=== PATIENT | female | born 1960 | race Caucasian/White ===

== ENCOUNTER 2017-06-30 11:46 | Outpatient (CLI) | payer MEDICARE, MEDICAID ==
[~2017-06-30 11:46] MED LIST: DOCU-25 PO; ESOM20CA32 PO; FLUT1DIS IH; HYDR10TA GT; HYDR20TA PO; LAMO150T2 PO; ONDA4TAB5 PO; OXYC-34 PO; TOLT1TAB2 PO
== END 2017-06-30 23:59 | disposition home or self-care (01) ==
LOC: RAD 11:46
DX: Z01.818 Encounter for other preprocedural examination (principal); J98.11 Atelectasis; I70.0 Atherosclerosis of aorta; Z95.0 Presence of cardiac pacemaker
CPT/HCPCS: 71010-TC

== ENCOUNTER 2017-07-03 05:02 | Day surgery (SDC) | payer MEDICARE, MEDICAID ==
[2017-07-03] MEDS ORDERED: CEFAZOLIN SODIUM/DEXTROSE,ISO 50 ML IV ONE (05:39)
[2017-07-03] MEDS ORDERED: LIDOCAINE 1% INJ 50 ML MDV IJ ONE (06:07)
[2017-07-03] MEDS ORDERED: EPINEPHRINE (1:1000) MDV 30 MG/30ML VIAL ONE (06:07)
[2017-07-03] MEDS ORDERED: MIDAZOLAM HCL 2 MG/2ML VIAL ONE (06:27)
[2017-07-03] MEDS ORDERED: FENTANYL PF 100MCG/2ML AMPUL ONE (06:27)
[2017-07-03] MEDS ORDERED: ROCURONIUM BROMIDE 50 MG/5 ML ONE (06:27)
[2017-07-03] MEDS ORDERED: HYDROMORPHONE 1 MG/1 ML DISP.SYRIN ONE (07:50)
== END 2017-07-03 09:00 | disposition home or self-care (01) ==
LOC: DS 05:02
PROVIDERS: ATTEND Specialist
DX: S43.082A Other subluxation of left shoulder joint, initial encounter (principal); M65.812 Other synovitis and tenosynovitis, left shoulder; M75.52 Bursitis of left shoulder; M75.42 Impingement syndrome of left shoulder; M75.02 Adhesive capsulitis of left shoulder; X58.XXXA Exposure to other specified factors, initial encounter; Y93.9 Activity, unspecified; Y92.89 Other specified places as the place of occurrence of the external cause; Y99.9 Unspecified external cause status; J45.909 Unspecified asthma, uncomplicated; F31.89 Other bipolar disorder; E27.1 Primary adrenocortical insufficiency; Z95.0 Presence of cardiac pacemaker; Z90.49 Acquired absence of other specified parts of digestive tract; Z88.5 Allergy status to narcotic agent; Z88.8 Allergy status to other drugs, medicaments and biological substances
CPT/HCPCS: 29820; 29824; 29825; 29826; 88304; 88305; 88311; A4217; A4565; J0171; J0690; J1100; J1170; J2250; J2405; J2704; J2710; J3010; J3490 ×3; Z7610

== ENCOUNTER 2017-09-28 19:19 | Inpatient (IN) | payer MEDICARE, MEDICAID ==
[2017-09-27 22:12] VITALS: BP 110/75
[2017-09-28] VITALS: BP 101/65
[~2017-09-28] VITALS: Ht 160 cm; Wt 45.4 kg
[2017-09-28] MEDS ORDERED: ONDANSETRON HCL/PF 4 MG/2 ML VIAL ONE (19:47)
[2017-09-28] MEDS ORDERED: IV NS 0.9% 1,000 ML BAG IV ONE (20:00)
[2017-09-28] MEDS ORDERED: ONDANSETRON HCL/PF 4 MG/2 ML VIAL IVP ONE (20:00)
[2017-09-28 20:19] LABS: BASOPHILS % (AUTO) 0.3 % (0.0-2.0); EOSINOPHILS # (AUTO) 0.2 /CMM (0.0-0.7); EOSINOPHILS % (AUTO) 3.3 % (0.0-6.0); HEMATOCRIT 37 % (33-45); HEMOGLOBIN 12.4 g/dL (11.5-14.8); LYMPHOCYTES % (AUTO) 19.5 % (20.0-44.0); MEAN CORPUSCULAR HEMOGLOBIN 31 PG (26.0-33.0); MEAN CORPUSCULAR HGB CONC 34 g/dl (31.0-36.0); MEAN CORPUSCULAR VOLUME 93 fL (82-100); MONOCYTES # (AUTO) 0.5 /CMM (0.1-1.30); NEUTROPHILS # (AUTO) 3.5 /CMM (1.8-8.9); NEUTROPHILS % (AUTO) 67.9 % (43.0-81.0); PLATELET COUNT (AUTO) 228 /CMM (150-450); RDW COEFFICIENT OF VARIATION 12.5 (11.5-15.0); RED BLOOD CELL COUNT(AUTO) 3.99 MIL/uL (4.0-5.2); WHITE BLOOD COUNT (AUTO) 5.2 K/uL (4.3-11.0)
[2017-09-28] MEDS ORDERED: oxyCODONE/APAP (5/325 MG) 1 UDTAB TABLET ONE ×2 (20:19→22:44)
[2017-09-28 20:28] LABS: CALCIUM, SERUM 8.1 mg/dL (8.5-10.1); CREATININE 0.5 mg/dL (0.6-1.3)
[2017-09-28] MEDS ORDERED: oxyCODONE/APAP (5/325 MG) 1 UDTAB TABLET PO ONE (20:30)
[2017-09-28 20:34] LABS: ALBUMIN 2.9 g/dL (3.4-5.0); BILIRUBIN,TOTAL 0.1 mg/dL (0.2-1.0); TOTAL PROTEIN, SERUM 5.9 g/dL (6.4-8.2)
[2017-09-28] MEDS ORDERED: ZOLPIDEM TARTRATE 5 MG TABLET PO PRN (21:00)
[2017-09-28] MEDS ORDERED: MAGNESIUM HYDROXIDE 30 ML UDC PO PRN (21:00)
[2017-09-28] MEDS ORDERED: ACETAMINOPHEN 325 MG TABLET PO PRN (21:00)
[2017-09-28] MEDS ORDERED: MAG HYDROX/AL HYDROX/SIMETH 30 ML UDC PO PRN (21:00)
[2017-09-28] MEDS ORDERED: HYDROCODONE/APAP 5/325MG 1 EACH TABLET PO PRN (21:00)
[2017-09-28] MEDS ORDERED: Z GUARD REMEDY 2 OZ OINT TP PRN (21:00)
[2017-09-28 22:10] VITALS: BP 110/75
[2017-09-28] MEDS ORDERED: HYDROCODONE/APAP 5/325MG 1 EACH TABLET ONE (22:31)
[2017-09-28] MEDS: oxyCODONE/APAP (5/325 MG) 1 UDTAB TABLET PO PRN (22:48)
[2017-09-28] MEDS: IV NS 0.9% 1,000 ML IV PRN (22:49)
[2017-09-29] VITALS: BP 101/65
[2017-09-29] MEDS ORDERED: oxyCODONE/APAP (5/325 MG) 1 UDTAB TABLET ONE (03:14)
[2017-09-29] MEDS: oxyCODONE/APAP (5/325 MG) 1 UDTAB TABLET PO PRN ×3 (03:18→11:59)
[2017-09-29 04:00] VITALS: BP 113/68
[2017-09-29] MEDS ORDERED: HYDROMORPHONE 1 MG/1 ML DISP.SYRIN IV PRN (04:00)
[2017-09-29 07:01] LABS: CALCIUM, SERUM 7.9 mg/dL (8.5-10.1); CREATININE 0.5 mg/dL (0.6-1.3); MAGNESIUM 1.8 mg/dL (1.8-2.4); PHOSPHORUS 3.2 mg/dL (2.5-4.9); POTASSIUM 4.3 mmol/L (3.5-5.1)
[2017-09-29 07:11] LABS: BASOPHILS % (AUTO) 0.6 % (0.0-2.0); EOSINOPHILS # (AUTO) 0.3 /CMM (0.0-0.7); EOSINOPHILS % (AUTO) 5.4 % (0.0-6.0); HEMATOCRIT 38 % (33-45); HEMOGLOBIN 12.5 g/dL (11.5-14.8); LYMPHOCYTES # (AUTO) 1.4 /CMM (0.8-4.8); LYMPHOCYTES % (AUTO) 27.6 % (20.0-44.0); MEAN CORPUSCULAR HEMOGLOBIN 31 PG (26.0-33.0); MEAN CORPUSCULAR HGB CONC 33 g/dl (31.0-36.0); MEAN CORPUSCULAR VOLUME 95 fL (82-100); MONOCYTES # (AUTO) 0.3 /CMM (0.1-1.30); MONOCYTES % (AUTO) 5.6 % (2.0-12.0); NEUTROPHILS % (AUTO) 60.8 % (43.0-81.0); RDW COEFFICIENT OF VARIATION 13.2 (11.5-15.0); RED BLOOD CELL COUNT(AUTO) 3.99 MIL/uL (4.0-5.2)
[2017-09-29 07:17] VITALS: BP 106/64
[2017-09-29] MEDS: DOCUSATE SODIUM 100 MG CAPSULE PO SCH (09:00)
[2017-09-29] MEDS ORDERED: ESOMEPRAZOLE MAGNESIUM 20 MG PO SCH (09:00)
[2017-09-29] MEDS ORDERED: FLUTICASONE/SALMETEROL DISKUS IH SCH (09:00)
[2017-09-29] MEDS: TOLTERODINE 2 MG TABLET PO SCH (09:22)
[2017-09-29] MEDS: PANTOPRAZOLE 40 MG TABLET.DR PO SCH (09:22)
[2017-09-29] MEDS: FLUTICASONE/VILANTEROL 1 EACH BLST.W.DEV IH SCH (09:22)
[2017-09-29] MEDS: HYDROCORTISONE 20 MG TABLET PO SCH (09:39)
[2017-09-29] MEDS: HYDROCORTISONE 5 MG TABLET GT SCH (11:55)
[2017-09-29] MEDS: IV NS 0.9% 1,000 ML IV PRN ×2 (11:55→19:14)
[2017-09-29] MEDS ORDERED: HYDROCORTISONE 10 MG TABLET GT SCH (12:00)
[2017-09-29] MEDS: ONDANSETRON HCL/PF 4 MG/2 ML VIAL IVP PRN (12:43)
[2017-09-29 13:48] LABS: PLATELET COUNT (AUTO) 201 /CMM (150-450)
[2017-09-29] MEDS ORDERED: HYDROCORTISONE 5 MG TABLET GT SCH (16:00)
[2017-09-29 16:04] VITALS: BP 114/69
[2017-09-29] MEDS: HYDROMORPHONE INJ 2 MG/ML DISP.SYRIN IV PRN ×2 (16:27→20:22)
[2017-09-29 20:00] VITALS: BP 123/72
[2017-09-29] MEDS: LamoTRIgine 25 MG TABLET PO SCH (21:36)
[2017-09-30] MEDS: HYDROMORPHONE INJ 2 MG/ML DISP.SYRIN IV PRN ×6 (00:18→21:38)
[2017-09-30] MEDS: IV NS 0.9% 1,000 ML IV PRN ×3 (04:31→19:02)
[2017-09-30] MEDS: diphenhydrAMINE HCL 50 MG/ML VIAL IV PRN ×3 (07:06→16:43)
[2017-09-30] MEDS: PANTOPRAZOLE 40 MG TABLET.DR PO SCH (07:06)
[2017-09-30 08:14] VITALS: BP 133/74
[2017-09-30] MEDS: oxyCODONE/APAP (5/325 MG) 1 UDTAB TABLET PO PRN (08:35)
[2017-09-30] MEDS: ONDANSETRON HCL/PF 4 MG/2 ML VIAL IVP PRN ×2 (08:37→20:12)
[2017-09-30] MEDS: HYDROCORTISONE 20 MG TABLET PO SCH (09:37)
[2017-09-30] MEDS: FLUTICASONE/VILANTEROL 1 EACH BLST.W.DEV IH SCH (09:38)
[2017-09-30] MEDS: TOLTERODINE 2 MG TABLET PO SCH (09:38)
[2017-09-30] MEDS: DOCUSATE SODIUM 100 MG CAPSULE PO SCH (09:38)
[2017-09-30] MEDS ORDERED: QUET200T PO (10:12)
[2017-09-30] MEDS: HYDROCORTISONE 5 MG TABLET GT SCH (11:14)
[2017-09-30] MEDS: LORAZEPAM 1 MG TABLET PO PRN (11:14)
[2017-09-30] MEDS ORDERED: HYDROCORTISONE 5 MG TABLET PO SCH ×2 (12:00→16:00)
[2017-09-30 13:00] VITALS: BP 124/72
[2017-09-30 16:00] VITALS: BP 104/61
[2017-09-30 20:00] VITALS: BP 104/62
[2017-09-30 21:30] VITALS: BP 121/72
[2017-09-30] MEDS ORDERED: QUETIAPINE FUMARATE 100 MG TABLET PO SCH (22:00)
[2017-09-30] MEDS: LamoTRIgine 25 MG TABLET PO SCH (22:19)
[2017-10-01 01:30] VITALS: BP 109/68
[2017-10-01] MEDS: IV NS 0.9% 1,000 ML IV PRN ×2 (01:51→08:53)
[2017-10-01] MEDS: HYDROMORPHONE INJ 2 MG/ML DISP.SYRIN IV PRN ×2 (02:12→06:19)
[2017-10-01] MEDS: PANTOPRAZOLE 40 MG TABLET.DR PO SCH (07:48)
[2017-10-01 08:00] VITALS: BP 114/71
[2017-10-01] MEDS: HYDROCORTISONE 20 MG TABLET PO SCH (08:44)
[2017-10-01] MEDS: TOLTERODINE 2 MG TABLET PO SCH (08:44)
[2017-10-01] MEDS: DOCUSATE SODIUM 100 MG CAPSULE PO SCH ×2 (08:44→08:48)
[2017-10-01] MEDS: LORAZEPAM 1 MG TABLET PO PRN (08:45)
[2017-10-01] MEDS: FLUTICASONE/VILANTEROL 1 EACH BLST.W.DEV IH SCH (08:45)
== END 2017-10-01 11:10 | disposition home health service (06) | DRG 643 ==
LOC: ER 19:20 → MEDSG2 21:46 → TELE 22:30 → MED 09-29 10:38
PROVIDERS: ADMIT Internal Medicine; ATTEND Internal Medicine
PROC: 02HV33Z Insertion of Infusion Device into Superior Vena Cava, Percutaneous Approach (ICD-10-PCS; principal; 2017-09-29)
PROC: B548ZZA Ultrasonography of Superior Vena Cava, Guidance (ICD-10-PCS; 2017-09-29)
DX: E27.40 Unspecified adrenocortical insufficiency (principal); K85.90 Acute pancreatitis without necrosis or infection, unspecified; E44.0 Moderate protein-calorie malnutrition; G89.4 Chronic pain syndrome; F41.9 Anxiety disorder, unspecified; K21.9 Gastro-esophageal reflux disease without esophagitis; Z79.899 Other long term (current) drug therapy; Z83.3 Family history of diabetes mellitus; Z87.891 Personal history of nicotine dependence; Z98.84 Bariatric surgery status; Z88.5 Allergy status to narcotic agent; Z88.8 Allergy status to other drugs, medicaments and biological substances; F31.9 Bipolar disorder, unspecified; Z96.659 Presence of unspecified artificial knee joint; Z80.9 Family history of malignant neoplasm, unspecified; M19.90 Unspecified osteoarthritis, unspecified site; Z90.710 Acquired absence of both cervix and uterus; Z90.49 Acquired absence of other specified parts of digestive tract
CPT/HCPCS: 36415; 36569; 71010-TC; 80048-TC; 80061-TC; 80076-TC; 82150-TC; 83690-TC; 83735-TC; 84100-TC; 85025-TC; A4606; A6253; A6402; C1751; J1170; J1200; J2405; J7030; Z7610

== ENCOUNTER 2017-11-14 09:52 | Inpatient (IN) | payer MEDICARE, MEDICAID ==
[~2017-11-14] VITALS: Ht 160 cm; Wt 49.9 kg
[~2017-11-14 09:52] MED LIST changes: +DOCU-141 PO; -DOCU-25 PO; -HYDR10TA GT; +HYDR10TA PO; +OXYC-133 PO; -OXYC-34 PO; +QUET200T PO
--- NOTE | 2017-11-14 09:52 | NUR ---
ABD PAIN W/ N/V/D X 3 DAYS. NAD NOTED. PT AAO X4, AMB WITH STEADY GAIT. RR EVEN AND UNLBAORED. PICC LINE IN PLACED BRADLEY. BLOOD DRAWN AND SENT TO LAB. URINE OBTAINED SENT TO LAB.
[2017-11-14] MEDS ORDERED: ONDANSETRON HCL/PF 4 MG/2 ML VIAL ONE ×2 (10:09→11:47)
[2017-11-14 10:23] LABS: BASOPHILS % (AUTO) 0.5 % (0.0-2.0); EOSINOPHILS # (AUTO) 0.5 /CMM (0.0-0.7); EOSINOPHILS % (AUTO) 4.9 % (0.0-6.0); HEMATOCRIT 36 % (33-45); HEMOGLOBIN 12.2 g/dL (11.5-14.8); LYMPHOCYTES # (AUTO) 1.5 /CMM (0.8-4.8); MEAN CORPUSCULAR HEMOGLOBIN 31 PG (26.0-33.0); MEAN CORPUSCULAR HGB CONC 34 g/dl (31.0-36.0); MEAN CORPUSCULAR VOLUME 92 fL (82-100); MONOCYTES # (AUTO) 0.6 /CMM (0.1-1.30); MONOCYTES % (AUTO) 5.8 % (2.0-12.0); NEUTROPHILS # (AUTO) 7.3 /CMM (1.8-8.9); NEUTROPHILS % (AUTO) 73.8 % (43.0-81.0); PLATELET COUNT (AUTO) 255 /CMM (150-450); RDW COEFFICIENT OF VARIATION 12.3 (11.5-15.0); RED BLOOD CELL COUNT(AUTO) 3.93 MIL/uL (4.0-5.2); WHITE BLOOD COUNT (AUTO) 9.9 K/uL (4.3-11.0)
[2017-11-14] MEDS ORDERED: ONDANSETRON HCL/PF 4 MG/2 ML VIAL IVP ONE ×2 (10:30→12:00)
[2017-11-14] MEDS ORDERED: oxyCODONE/APAP (5/325 MG) 1 UDTAB TABLET ONE (10:30)
[2017-11-14 10:33] LABS: CALCIUM, SERUM 8.2 mg/dL (8.5-10.1); CREATININE 0.5 mg/dL (0.6-1.3); POTASSIUM 4.4 mmol/L (3.5-5.1)
[2017-11-14 10:37] LABS: APPEARANCE,URINE CLEAR (CLEAR); BILIRUBIN,URINE NEGATIVE (NEGATIVE); BLOOD, URINE NEGATIVE Ery/uL (NEGATIVE); COLOR,URINE YELLOW (YELLOW); KETONES,URINE NEGATIVE (NEGATIVE); LEUKOCYTE ESTERASE ,URINE 2+ (NEGATIVE); NITRITE, URINE NEGATIVE (NEGATIVE); PROTEIN,URINE NEGATIVE (NEGATIVE); UGLUCOSE NEGATIVE (NEGATIVE); UROBILINOGEN,URINE 0.2 EU/dL (0.2)
[2017-11-14 10:39] LABS: ALBUMIN 3.1 g/dL (3.4-5.0); BILIRUBIN,TOTAL 0.1 mg/dL (0.2-1.0); TOTAL PROTEIN, SERUM 6.2 g/dL (6.4-8.2)
[2017-11-14 10:51] LABS: BACTERIA,URINE 1+ /HPF (None Seen); RBC,URINE 0-2 /HPF (0-2)
[2017-11-14] MEDS ORDERED: IV NS 0.9% 1,000 ML BAG IV ONE (11:00)
[2017-11-14] MEDS ORDERED: oxyCODONE/APAP (5/325 MG) 1 UDTAB TABLET PO ONE (11:00)
[2017-11-14] MEDS ORDERED: HYDROMORPHONE INJ 2 MG/ML DISP.SYRIN ONE (11:47)
[2017-11-14] MEDS ORDERED: HYDROMORPHONE INJ 2 MG/ML DISP.SYRIN IV ONE (12:00)
[2017-11-14] MEDS ORDERED: IOHEXOL-300 100 ML VIAL IV ONE (12:20)
[2017-11-14] MEDS ORDERED: CT SWABBABLE VALVE TRANS SET 1 EA INFUS.SET MC ONE (12:20)
[2017-11-14] MEDS ORDERED: IV NS 0.9% 250 ML IV ONE (12:21)
--- NOTE | 2017-11-14 13:25 | NUR ---
CALLED [employer] MAKING MACHINE OPERATOR WAS PAGED.
[2017-11-14] MEDS ORDERED: CEFTRIAXONE 1GM BAG (ER ONLY) 1 GM/50 ML PIGGYBACK IV ONE (13:30)
[2017-11-14] MEDS ORDERED: HYDR5TAB PO (13:52)
--- NOTE | 2017-11-14 13:58 | NUR ---
DR POWERS CALLED BACK, ON THE PHONE WITH DR ALBRECHT.
[2017-11-14] MEDS ORDERED: CEFTRIAXONE 1 G in IV D5W 50 ML IV ONE (14:00)
--- NOTE | 2017-11-14 14:35 | NUR ---
REPORT GIVEN TO TO FRANKY MAS FOR ABDOUL
[2017-11-14] MEDS ORDERED: ACETAMINOPHEN 325 MG TABLET PO PRN (15:00)
[2017-11-14] MEDS ORDERED: MAGNESIUM HYDROXIDE 30 ML UDC PO PRN (15:00)
[2017-11-14] MEDS ORDERED: ZOLPIDEM TARTRATE 5 MG TABLET PO PRN (15:00)
[2017-11-14] MEDS ORDERED: HYDROCODONE/APAP 5/325MG 1 EACH TABLET PO PRN (15:00)
[2017-11-14] MEDS ORDERED: Z GUARD REMEDY 2 OZ OINT TP PRN (15:00)
[2017-11-14] MEDS ORDERED: MAG HYDROX/AL HYDROX/SIMETH 30 ML UDC PO PRN (15:00)
[2017-11-14 15:15] VITALS: BP 144/86
--- NOTE | 2017-11-14 15:15 | NUR ---
MS RN: ADMITTING NOTE PT TRANSFERRED FROM ER WITH DX OF ABD PAIN/ PANCREATITIS. NO SOB NOTED. PAIN CONTROLLED WITH PAIN MEDICATIONS. ON ROOM AIR SATING T 100%. A.OX4. SKIN INTACT. AMBULATORY WITH OUT ASSIST. PACE MAKER IN AMISHA WALL. ON FULL LIQUID DIET. PICC LINE ON BRADLEY RUNNING NS AT 75ML.HR. SITE CLEAR AND PATENT. DRESSING INTACT. UNSOILED. BP 144/86, PULSE 68, RR18, TEMP 98.5, O2 1005 ON ROOM AIR. ALL BELONGINGS ACCOUNTED FOR. RESTING COMFORTABLY IN BED. CALL LIGHT WITHIN REACH.
[2017-11-14 15:49] VITALS: BP 144/86
[2017-11-14] MEDS: ONDANSETRON HCL/PF 4 MG/2 ML VIAL IVP PRN (15:53)
[2017-11-14] MEDS: IV NS 0.9% 1,000 ML IV PRN (15:53)
[2017-11-14] MEDS: TOLTERODINE 2 MG TABLET PO SCH (15:54)
[2017-11-14] MEDS: HYDROCORTISONE 5 MG TABLET PO SCH (15:55)
[2017-11-14] MEDS: ENOXAPARIN SODIUM 40 MG/0.4 ML DISP.SYRIN SQ SCH (16:01)
[2017-11-14] MEDS: oxyCODONE/APAP (5/325 MG) 1 UDTAB TABLET PO PRN ×2 (16:01→20:27)
--- NOTE | 2017-11-14 18:52 | NUR ---
MS RN: CLOSING NOTE PT A/OX4. TOOK ALL MEDICATIONS ON TIME. NO ADVERSE REACTIONS NOTED. NO N/V NOTED. NO DIARRHEA NOTED. AMBULATES WITH OUT ASSISTANCE. ON FULL LIQUID DIET. SKIN INTACT. PICC LINE ON BRADLEY RUNNING NS AT 75ML/HR. SITE CLEAR AND PATENT. NO DISTRESS NOTED. NO SOB NOTED. PAIN CONTROLLED WITH PAIN MEDICATIONS. RESTING COMFORTABLY IN BED. CALL LIGHT WITHIN REACH.
--- NOTE | 2017-11-14 19:30 | NUR ---
MS2/RN RECEIVE PATIENT APPEAR SLEEPING, EASILY AROUSABLE, APPEAR COMFORTABLE, NO DISTRESS NOTED, CALL LIGHT IN REACH. WILL MONITOR.
[2017-11-14 20:42] VITALS: BP 128/73
[2017-11-14] MEDS: QUETIAPINE FUMARATE 100 MG TABLET PO SCH (21:58)
[2017-11-14] MEDS: LamoTRIgine 25 MG TABLET PO SCH (21:58)
--- NOTE | 2017-11-14 22:26 | NUR ---
MS2/RN PER PATIENT PERCOCET IS NOT WORKING TO HER PAIN. CALLED [facility] LEFT MESSAGE AND DR. CHRISTIANSON, RESEARCH ASSISTANT MEMBER, CALLED BACK AT THIS TIME WITH ORDER OF DILAUDID 1 MG IV Q 4 HOURS PRN. PATIENT IS ON CODEINE ALLERGY, NOTED TO HAVE RECEIVED DILAUDID IN E.R. AND ALSO VERIFIED WITH THE PATIENT WHO STATED THAT SHE HAD RECEIVED IT DILAUDID BEFORE WITH NO REACTION.
--- NOTE | 2017-11-14 23:17 | NUR ---
MS2/RN PATIENT IS SLEEPING AT THIS TIME, AROUSABLE, APPEAR COMFORTABLE, NO DISTRESS NOTED, CALL LIGHT IN REACH, WILL CONTINUE TO MONITOR.
[2017-11-15] MEDS ORDERED: HYDROMORPHONE 1 MG/1 ML DISP.SYRIN ONE (03:43)
[2017-11-15] MEDS: HYDROMORPHONE 1 MG/1 ML DISP.SYRIN IV PRN ×4 (03:45→19:41)
[2017-11-15] MEDS: IV NS 0.9% 1,000 ML IV PRN (03:51)
--- NOTE | 2017-11-15 06:15 | NUR ---
MS2/RN AWAKE, COMFORTABLE, NO C/O PAIN AT THIS TIME, ALL NEEDS ATTENDED AT THIS TIME. WILL CONTINUE TO MONITOR.
[2017-11-15 06:29] LABS: BASOPHILS % (AUTO) 0.5 % (0.0-2.0); EOSINOPHILS # (AUTO) 0.4 /CMM (0.0-0.7); EOSINOPHILS % (AUTO) 9.1 % (0.0-6.0); HEMATOCRIT 37 % (33-45); HEMOGLOBIN 12.6 g/dL (11.5-14.8); LYMPHOCYTES # (AUTO) 1.2 /CMM (0.8-4.8); LYMPHOCYTES % (AUTO) 28.4 % (20.0-44.0); MEAN CORPUSCULAR HEMOGLOBIN 32 PG (26.0-33.0); MEAN CORPUSCULAR HGB CONC 34 g/dl (31.0-36.0); MEAN CORPUSCULAR VOLUME 94 fL (82-100); MONOCYTES # (AUTO) 0.3 /CMM (0.1-1.30); MONOCYTES % (AUTO) 6.9 % (2.0-12.0); NEUTROPHILS # (AUTO) 2.4 /CMM (1.8-8.9); NEUTROPHILS % (AUTO) 55.1 % (43.0-81.0); PLATELET COUNT (AUTO) 211 /CMM (150-450); RED BLOOD CELL COUNT(AUTO) 3.92 MIL/uL (4.0-5.2); WHITE BLOOD COUNT (AUTO) 4.4 K/uL (4.3-11.0)
[2017-11-15 07:05] LABS: ALBUMIN 2.9 g/dL (3.4-5.0); CALCIUM, SERUM 8.7 mg/dL (8.5-10.1); CREATININE 0.6 mg/dL (0.6-1.3); MAGNESIUM 2.1 mg/dL (1.8-2.4); PHOSPHORUS 3.8 mg/dL (2.5-4.9); POTASSIUM 4.5 mmol/L (3.5-5.1)
--- NOTE | 2017-11-15 07:44 | NUR ---
MS RN: INITIAL NOTE RECEIVED PT A/OX4. MS. NO DISTRESS NOTED. NO SOB NOTED. NO PAIN NOTED. AMBULATORY. SKIN INTACT. ON FULL LIQUID DIET. NO N/V NOTED. NO DIARRHEA NOTED. PICCLINE RUNNING NS AT 75ML/HR. SITE CLEAR AND PATENT. DRESSING INTACT. NO REDNESS OR BLEEDING NOTED. RESTING COMFORTABLY IN BED. CALL LIGHT WITHIN REACH.
[2017-11-15 08:00] VITALS: BP 99/64
[2017-11-15] MEDS: TOLTERODINE 2 MG TABLET PO SCH (08:18)
[2017-11-15] MEDS: HYDROCORTISONE 20 MG TABLET PO SCH (08:18)
[2017-11-15] MEDS: FLUTICASONE/VILANTEROL 1 EACH BLST.W.DEV IH SCH (08:18)
[2017-11-15] MEDS: DOCUSATE SODIUM 100 MG CAPSULE PO SCH (08:18)
[2017-11-15] MEDS: HYDROCORTISONE 5 MG TABLET PO SCH ×2 (12:20→15:26)
[2017-11-15] MEDS ORDERED: oxyCODONE/APAP (5/325 MG) 1 UDTAB TABLET PO PRN (14:00)
[2017-11-15] MEDS: ONDANSETRON HCL/PF 4 MG/2 ML VIAL IVP PRN (15:26)
--- NOTE | 2017-11-15 18:46 | NUR ---
MS RN: CLOSING NOTE PT A/OX4. TOOK ALL MEDICATIONS ON TIME. NO ADVERSE REACTIONS NOTED. PAIN CONTROLLED WITH PAIN MEDICATIONS. AMBULATORY. SKIN INTACT. NO DISTRESS NOTED. NO SOB NOTED. CHANGED TO SOFT DIET PER MD ORDER. TO ADVANCE DIET TOLERATED PER MD ORDER. PT TOLERATED SOFT DIET WELL. NO VOMITING NOTED. PICCLINE ON BRADLEY. DRESSING INTACT. NO IV FLUIDS RUNNING. NO BLEEDING NOTED. RESTING COMFORTABLY IN BED. CALL LIGHT WITHIN REACH.
--- NOTE | 2017-11-15 19:53 | NUR ---
MS2/RN C/O ABDOMINAL PAIN 08/15, MEDICATED WITH DILAUDID 1 MG IV. WILL MONITOR.
[2017-11-15 20:00] VITALS: BP 123/76
[2017-11-15] MEDS: QUETIAPINE FUMARATE 100 MG TABLET PO SCH (20:52)
[2017-11-15] MEDS: LamoTRIgine 25 MG TABLET PO SCH (20:53)
[2017-11-15] MEDS: ENOXAPARIN SODIUM 40 MG/0.4 ML DISP.SYRIN SQ SCH (20:54)
[2017-11-16] MEDS: HYDROMORPHONE 1 MG/1 ML DISP.SYRIN IV PRN ×6 (02:18→23:29)
[2017-11-16] MEDS: ONDANSETRON HCL/PF 4 MG/2 ML VIAL IVP PRN ×2 (06:37→18:55)
[2017-11-16 07:00] LABS: CALCIUM, SERUM 8.9 mg/dL (8.5-10.1); CREATININE 0.5 mg/dL (0.6-1.3); PHOSPHORUS 5.3 mg/dL (2.5-4.9); POTASSIUM 4.2 mmol/L (3.5-5.1)
[2017-11-16 07:05] LABS: BASOPHILS % (AUTO) 0.8 % (0.0-2.0); EOSINOPHILS # (AUTO) 0.5 /CMM (0.0-0.7); EOSINOPHILS % (AUTO) 8.4 % (0.0-6.0); HEMATOCRIT 36 % (33-45); HEMOGLOBIN 12.4 g/dL (11.5-14.8); LYMPHOCYTES # (AUTO) 1.7 /CMM (0.8-4.8); LYMPHOCYTES % (AUTO) 29.3 % (20.0-44.0); MEAN CORPUSCULAR HEMOGLOBIN 32 PG (26.0-33.0); MEAN CORPUSCULAR HGB CONC 34 g/dl (31.0-36.0); MEAN CORPUSCULAR VOLUME 92 fL (82-100); MONOCYTES # (AUTO) 0.4 /CMM (0.1-1.30); MONOCYTES % (AUTO) 6.6 % (2.0-12.0); NEUTROPHILS # (AUTO) 3.3 /CMM (1.8-8.9); NEUTROPHILS % (AUTO) 54.9 % (43.0-81.0); PLATELET COUNT (AUTO) 215 /CMM (150-450); RDW COEFFICIENT OF VARIATION 12.1 (11.5-15.0); RED BLOOD CELL COUNT(AUTO) 3.94 MIL/uL (4.0-5.2); WHITE BLOOD COUNT (AUTO) 5.9 K/uL (4.3-11.0)
--- NOTE | 2017-11-16 07:40 | NUR ---
MS2/RN PATIENT SLEEPING, AROUSABLE, NO DISTRESS NOTED. ALL NEEDS ATTENDED AT THIS TIME, ENDORSED TO NEXT RN.
[2017-11-16 08:00] VITALS: BP 102/66
--- NOTE | 2017-11-16 08:04 | NUR ---
MS/RN OPENING NOTE PATIENT IN BED IN STABLE CONDITION. A/O X 3. NO SIGNS OF ACUTE DISTRESS. NO COMPLAIN OF PAIN OR DISCOMFORT. ALL NEEDS ATTENDED TO. CALL LIGHT WITHIN REACH. WILL CONTINUE TO MONITOR TO ENSURE SAFETY.
[2017-11-16] MEDS: TOLTERODINE 2 MG TABLET PO SCH (09:13)
[2017-11-16] MEDS: FLUTICASONE/VILANTEROL 1 EACH BLST.W.DEV IH SCH (09:13)
[2017-11-16] MEDS: DOCUSATE SODIUM 100 MG CAPSULE PO SCH (09:14)
[2017-11-16] MEDS: HYDROCORTISONE 20 MG TABLET PO SCH (09:14)
[2017-11-16] MEDS: CEFTRIAXONE 1 G in IV D5W 50 ML IV SCH (13:19)
[2017-11-16] MEDS: HYDROCORTISONE 5 MG TABLET PO SCH ×2 (13:33→16:50)
[2017-11-16 16:00] VITALS: BP 123/74
--- NOTE | 2017-11-16 18:39 | NUR ---
MS/RN CLOSING NOTE PATIENT IN BED IN STABLE CONDITION. A/O X 4. NO SIGNS OF ACUTE DISTRESS. NO COMPLAIN OF PAIN OR DISCOMFORT. PER DR POWERS, TO CALL PATIENT GI ALVARO ROSAS. CALLED DR VIRGEN, NO ANSWER. PER PATIENT SHE CAN TRY FROM HER PHONE, ALVARO ROSAS OFFICE CALLED BY PATIENT AND SPOKE TO SACK SEWER MACHINE AT DR VIRGEN AND LEFT MESSAGE WITH SACK SEWER MACHINE FOR DR VIRGEN TO CALL DR PRIYA URIAS CONTACT NUMBER PROVIDED. ALL NEEDS ATTENDED TO. CALL LIGHT WITHIN REACH. WILL ENDORSE TO NEXT SHIFT FOR CONTINUITY OF CARE.
[2017-11-16 20:00] VITALS: BP 94/51
[2017-11-16] MEDS ORDERED: LamoTRIgine 25 MG TABLET ONE (21:22)
[2017-11-16] MEDS: LamoTRIgine 25 MG TABLET PO SCH (21:26)
[2017-11-16] MEDS: QUETIAPINE FUMARATE 100 MG TABLET PO SCH (21:26)
[2017-11-16] MEDS: ENOXAPARIN SODIUM 40 MG/0.4 ML DISP.SYRIN SQ SCH (21:27)
[2017-11-17] MEDS ORDERED: HYDROMORPHONE INJ 2 MG/ML DISP.SYRIN ONE (04:15)
[2017-11-17] MEDS: HYDROMORPHONE 1 MG/1 ML DISP.SYRIN IV PRN ×4 (04:17→17:28)
--- NOTE | 2017-11-17 06:24 | NUR ---
MS RN NOTES AWAKE & RESPONSIVE. NOT IN ANY DISTRESS. NO SOB NOTED. DENIES ANY PAIN OR DISCOMFORT AT THIS TIME. AM CARE DONE. MONITORED ACCORDINGLY. CALL LIGHT WITHIN REACH. BED IN LOWEST POSITION. SR UP X 2 FOR SAFETY. WILL ENDORSE TO NEXT SHIFT.
[2017-11-17 06:26] LABS: BASOPHILS % (AUTO) 0.7 % (0.0-2.0); EOSINOPHILS # (AUTO) 0.6 /CMM (0.0-0.7); EOSINOPHILS % (AUTO) 10.7 % (0.0-6.0); HEMATOCRIT 38 % (33-45); HEMOGLOBIN 12.7 g/dL (11.5-14.8); LYMPHOCYTES # (AUTO) 1.8 /CMM (0.8-4.8); LYMPHOCYTES % (AUTO) 31.6 % (20.0-44.0); MEAN CORPUSCULAR HEMOGLOBIN 32 PG (26.0-33.0); MEAN CORPUSCULAR HGB CONC 34 g/dl (31.0-36.0); MEAN CORPUSCULAR VOLUME 94 fL (82-100); MONOCYTES # (AUTO) 0.4 /CMM (0.1-1.30); NEUTROPHILS # (AUTO) 2.7 /CMM (1.8-8.9); PLATELET COUNT (AUTO) 219 /CMM (150-450); RDW COEFFICIENT OF VARIATION 13.2 (11.5-15.0); RED BLOOD CELL COUNT(AUTO) 3.98 MIL/uL (4.0-5.2); WHITE BLOOD COUNT (AUTO) 5.6 K/uL (4.3-11.0)
[2017-11-17 06:39] LABS: CREATININE 0.6 mg/dL (0.6-1.3); POTASSIUM 4.6 mmol/L (3.5-5.1)
[2017-11-17 06:58] LABS: MAGNESIUM 2.1 mg/dL (1.8-2.4)
[2017-11-17 07:22] LABS: BILIRUBIN,TOTAL 0.1 mg/dL (0.2-1.0); PHOSPHORUS 4.5 mg/dL (2.5-4.9); TOTAL PROTEIN, SERUM 6.6 g/dL (6.4-8.2)
--- NOTE | 2017-11-17 07:36 | NUR ---
MS/RN OPENING NOTE PATIENT IN BED SLEEPING. RESPONSIVE TO VERBAL STIMULI. BREATHING REGULAR AND UNLABORED. DENIES SOB, PAIN AT THIS TIME. IN NO APPARENT DISTRESS. BED LOW AND LOCKED. SIDE RAIL UP X2. CALL LIGHT WITHIN REACH. WILL CONTINUE TO MONITOR.
[2017-11-17 08:00] VITALS: BP 98/70
[2017-11-17] MEDS: HYDROCORTISONE 20 MG TABLET PO SCH (08:00)
[2017-11-17] MEDS: DOCUSATE SODIUM 100 MG CAPSULE PO SCH (08:35)
[2017-11-17] MEDS: TOLTERODINE 2 MG TABLET PO SCH (08:35)
[2017-11-17] MEDS: ONDANSETRON HCL/PF 4 MG/2 ML VIAL IVP PRN ×2 (09:13→17:41)
[2017-11-17] MEDS: CEFTRIAXONE 1 G in IV D5W 50 ML IV SCH (12:17)
[2017-11-17] MEDS: FLUTICASONE/VILANTEROL 1 EACH BLST.W.DEV IH SCH (12:38)
[2017-11-17] MEDS: HYDROCORTISONE 5 MG TABLET PO SCH ×2 (12:38→17:02)
--- NOTE | 2017-11-17 15:02 | NUR ---
MS/RN NOTE SPOKE WITH PATIENT`S DENTURE TECHNICIAN FROM [facility] DR DULCE MARIA ABRAHAM AND PER DR العراقي "THE PATIENT CANNOT HAVE MRCP WITHOUT CONTRAST DUE TO PACEMAKER." DR COTTO MADE AWARE AND DR COTTO CANCELED MRCP WITHOUT CONTRAST.
[2017-11-17 16:00] VITALS: BP 102/69
--- NOTE | 2017-11-17 16:12 | NUR ---
spoke with patient,made aware she is being discharge home today. Patient don't want rehabilitation case coordinator to notify son, she needs taxi and caregiver will see her at home. Spoke with intake at [facility] [phone], will resume services in am . Addendum: 11/17/17 at 1612 by USHA GAO RN Amended: Links added.
--- NOTE | 2017-11-17 19:00 | NUR ---
MS/RM CLOSING NOTE PATIENT ALERT AND ORIENTED X4. RESPIRATION REGULAR AND UNLABORED. DENIES SOB, PAIN. IN NO APPARENT DISTRESS. LEFT THE FACILITY IN STABLE CONDITION VIA CALLED TAXI.
== END 2017-11-17 19:10 | disposition home or self-care (01) | DRG 445 ==
LOC: ER 09:55 → MEDSG2 14:24
PROVIDERS: ADMIT Internal Medicine; ATTEND Internal Medicine
PROC: 02HV33Z Insertion of Infusion Device into Superior Vena Cava, Percutaneous Approach (ICD-10-PCS; principal; 2017-11-14)
DX: K83.1 Obstruction of bile duct (principal); E44.1 Mild protein-calorie malnutrition; E27.40 Unspecified adrenocortical insufficiency; N39.0 Urinary tract infection, site not specified; F11.20 Opioid dependence, uncomplicated; Z95.0 Presence of cardiac pacemaker; Z98.84 Bariatric surgery status; Z96.659 Presence of unspecified artificial knee joint; Z90.710 Acquired absence of both cervix and uterus; Z87.891 Personal history of nicotine dependence; Z83.3 Family history of diabetes mellitus; I12.9 Hypertensive chronic kidney disease with stage 1 through stage 4 chronic kidney disease, or unspecified chronic kidney disease; K21.9 Gastro-esophageal reflux disease without esophagitis; N18.9 Chronic kidney disease, unspecified; Z90.49 Acquired absence of other specified parts of digestive tract; Z79.899 Other long term (current) drug therapy; Z88.5 Allergy status to narcotic agent; Z88.8 Allergy status to other drugs, medicaments and biological substances; E78.5 Hyperlipidemia, unspecified; F31.9 Bipolar disorder, unspecified; M19.90 Unspecified osteoarthritis, unspecified site; G89.29 Other chronic pain; B96.89 Other specified bacterial agents as the cause of diseases classified elsewhere; Z80.9 Family history of malignant neoplasm, unspecified
CPT/HCPCS: 36415; 71045-TC; 76705-TC; 80048-TC; 80061-TC; 80074; 80076-TC; 81000-TC; 82040-TC; 82150-TC; 82746; 83690-TC; 83735-TC; 84100-TC; 85025-TC; 87081-TC; 87086-TC; J0696; J1170; J1650; J2405; J7030; J7050; J7060; Q9967; Z7610

== ENCOUNTER 2017-11-19 10:57 | Emergency (ER) | payer MEDICARE, MEDICAID ==
[~2017-11-19] VITALS: Ht 160 cm; Wt 46.7 kg
[~2017-11-19 10:57] MED LIST changes: +HYDR5TAB PO
--- NOTE | 2017-11-19 11:05 | NUR ---
PRESENTS TO ER C/O NAUSEA, VOMITING X 2 DAYS. DISCHARGED FROM HOSPITAL 2 DAYS AGO WITH SAME SYMPTOMS. A/OX 4. BREATHING EVEN AND UNLABORED. NO SOB. VITALS STABLE. HAS PICC LINE ON LEFT UPPER ARM. SAFETY AND COMFORT MEASURES IN PLACE. AWAITING MD ORDERS.
[2017-11-19] MEDS ORDERED: ONDANSETRON HCL/PF 4 MG/2 ML VIAL ONE (11:21)
--- NOTE | 2017-11-19 11:25 | NUR ---
BLOOD DRAWN FROM PICC LINE AND SENT TO LAB.
[2017-11-19 11:30] LABS: BASOPHILS # (AUTO) 0.1 /CMM (0.0-0.2); BASOPHILS % (AUTO) 1.1 % (0.0-2.0); EOSINOPHILS # (AUTO) 0.2 /CMM (0.0-0.7); EOSINOPHILS % (AUTO) 2.2 % (0.0-6.0); HEMATOCRIT 37 % (33-45); HEMOGLOBIN 12.7 g/dL (11.5-14.8); LYMPHOCYTES # (AUTO) 0.9 /CMM (0.8-4.8); LYMPHOCYTES % (AUTO) 9.2 % (20.0-44.0); MEAN CORPUSCULAR HEMOGLOBIN 31 PG (26.0-33.0); MEAN CORPUSCULAR HGB CONC 34 g/dl (31.0-36.0); MEAN CORPUSCULAR VOLUME 91 fL (82-100); MONOCYTES # (AUTO) 0.4 /CMM (0.1-1.30); MONOCYTES % (AUTO) 3.9 % (2.0-12.0); NEUTROPHILS # (AUTO) 7.7 /CMM (1.8-8.9); NEUTROPHILS % (AUTO) 83.6 % (43.0-81.0); PLATELET COUNT (AUTO) 242 /CMM (150-450); RDW COEFFICIENT OF VARIATION 12.3 (11.5-15.0); RED BLOOD CELL COUNT(AUTO) 4.11 MIL/uL (4.0-5.2); WHITE BLOOD COUNT (AUTO) 9.3 K/uL (4.3-11.0)
[2017-11-19] MEDS ORDERED: ONDANSETRON HCL/PF 4 MG/2 ML VIAL IVP ONE (11:30)
[2017-11-19] MEDS ORDERED: IV NS 0.9% 1,000 ML BAG IV ONE (11:30)
--- NOTE | 2017-11-19 11:30 | NUR ---
PATIENT MEDICATED PER MD ORDERS.
[2017-11-19 11:40] LABS: CALCIUM, SERUM 8.7 mg/dL (8.5-10.1); CREATININE 0.6 mg/dL (0.6-1.3); POTASSIUM 4.6 mmol/L (3.5-5.1)
[2017-11-19 11:46] LABS: ALBUMIN 3.2 g/dL (3.4-5.0); BILIRUBIN,TOTAL 0.1 mg/dL (0.2-1.0); TOTAL PROTEIN, SERUM 6.9 g/dL (6.4-8.2)
--- NOTE | 2017-11-19 12:32 | NUR ---
Patient discharged to home in stable condition. Written and verbal after care instructions given. Patient verbalizes understanding of instruction.
[2017-11-19 12:37] VITALS: BP 118/72
== END 2017-11-19 12:38 | disposition home or self-care (01) ==
LOC: ER 11:01
DX: R11.2 Nausea with vomiting, unspecified (principal); R10.84 Generalized abdominal pain; F31.9 Bipolar disorder, unspecified; G89.4 Chronic pain syndrome; F17.200 Nicotine dependence, unspecified, uncomplicated; K85.90 Acute pancreatitis without necrosis or infection, unspecified; Z95.0 Presence of cardiac pacemaker; Z88.5 Allergy status to narcotic agent; Z88.8 Allergy status to other drugs, medicaments and biological substances; Z90.49 Acquired absence of other specified parts of digestive tract
CPT/HCPCS: 36415; 80048; 80076; 83690; 85025; 96361; 96374; 99284; A4606; J2405; J7030; Z7610

== ENCOUNTER 2018-02-24 20:31 | Inpatient (IN) | payer MEDICARE, MEDICAID ==
[~2018-02-24] VITALS: Ht 160 cm; Wt 52.6 kg
[2018-02-24 21:18] LABS: APPEARANCE,URINE CLEAR (CLEAR); BILIRUBIN,URINE NEGATIVE (NEGATIVE); BLOOD, URINE NEGATIVE Ery/uL (NEGATIVE); COLOR,URINE YELLOW (YELLOW); KETONES,URINE NEGATIVE (NEGATIVE); LEUKOCYTE ESTERASE ,URINE TRACE (NEGATIVE); NITRITE, URINE NEGATIVE (NEGATIVE); PROTEIN,URINE NEGATIVE (NEGATIVE); UGLUCOSE NEGATIVE (NEGATIVE); UROBILINOGEN,URINE 0.2 EU/dL (0.2)
[2018-02-24 21:25] LABS: BASOPHILS # (AUTO) 0.1 /CMM (0.0-0.2); BASOPHILS % (AUTO) 1.1 % (0.0-2.0); HEMATOCRIT 35 % (33-45); HEMOGLOBIN 12.5 g/dL (11.5-14.8); LYMPHOCYTES # (AUTO) 1.5 /CMM (0.8-4.8); LYMPHOCYTES % (AUTO) 25.2 % (20.0-44.0); MEAN CORPUSCULAR HGB CONC 36 g/dl (31.0-36.0); MEAN CORPUSCULAR VOLUME 89 fL (82-100); MONOCYTES # (AUTO) 0.5 /CMM (0.1-1.30); MONOCYTES % (AUTO) 8.4 % (2.0-12.0); NEUTROPHILS # (AUTO) 3.5 /CMM (1.8-8.9); NEUTROPHILS % (AUTO) 62.3 % (43.0-81.0); PLATELET COUNT (AUTO) 237 /CMM (150-450); RDW COEFFICIENT OF VARIATION 13.3 (11.5-15.0); RED BLOOD CELL COUNT(AUTO) 3.88 MIL/uL (4.0-5.2); WHITE BLOOD COUNT (AUTO) 5.8 K/uL (4.3-11.0)
[2018-02-24 21:35] LABS: ALANINE AMINOTRANSFERASE 23 U/L (12-78); ALBUMIN 3.3 g/dL (3.4-5.0); ALCOHOL, BLOOD < 3 mg/dL (0-0); ALKALINE PHOSPHATASE 91 U/L (46-116); ASPARTATE AMINOTRANSFERASE 15 U/L (15-37); BILIRUBIN,DIRECT 0.1 mg/dL (0.0-0.2); BILIRUBIN,TOTAL 0.3 mg/dL (0.2-1.0); CALCIUM, SERUM 8.3 mg/dL (8.5-10.1); CARBON DIOXIDE 24 mmol/L (21-32); CHLORIDE 109 mmol/L (98-107); CREATININE 0.7 mg/dL (0.6-1.3); GLUCOSE 79 mg/dL (74-106); POTASSIUM 3.6 mmol/L (3.5-5.1); SODIUM SERUM 142 mmol/L (136-145); TOTAL PROTEIN, SERUM 6.6 g/dL (6.4-8.2); UREA NITROGEN, BLOOD 8 mg/dL (7-18)
[2018-02-24 21:44] LABS: ACETAMINOPHEN < 2 ug/ml (10-30); SALICYLATE 1.2 mg/dL (2.8-20.0)
[2018-02-24 21:56] LABS: BACTERIA,URINE 1+ /HPF (None Seen); MUCUS,URINE Few /LPF (None Seen); RBC,URINE 0-2 /HPF (0-2); SQUAMOUS EPITHELIAL CELL,UR 0-2 /HPF (None Seen)
--- NOTE | 2018-02-24 22:33 | NUR ---
GPS 211
--- NOTE | 2018-02-24 23:00 | NUR ---
PATIENT ADMITTED FROM [facility], INITIALLY CAME FROM HOME. CAME TO THE UNIT AT 2300 ACCOMPANIED BY 1 MALE ER STAFF. PATIENT WAS COMFORTABLY PLACED IN BED. PATIENT SHOWS NO S/S OF ANY PAIN AT THIS TIME. RESPIRATION EVEN, BREATHING PATTERN NON-LABORED, NO APPARENT DISTRESS NOTED. PATIENT IS AMBULATORY/STEADY GAIT. SKIN WARM AND DRY, NOTED DISCOLORATION ON BUE AND BLE WITH PHOTOS TAKEN. WOUND CONSULT ORDERED. BELONGINGS INVENTORIED AND CHECKED FOR CONTRABAND, VALUABLES PUT TO SAFE.PAGED DR. GUILLORY FOR MED RECON. SON FILIBERTO WAS CALLED, LEFT MESSAGE ON THE ANSWERING MACHINE. PATIENT IS COOPERATIVE, MED COMPLAINT, MOSTLY INDEPENDENT WITH ADL'S. BED LOCKED AND PLACED ON LOWEST POSITION. WILL CONTINUE TO MONITOR Q 15 MINS. TO MAINTAIN SAFETY.
[2018-02-24] MEDS ORDERED: MAGNESIUM HYDROXIDE 30 ML UDC PO PRN (23:30)
[2018-02-24] MEDS ORDERED: TEMAZEPAM 7.5 MG CAPSULE ONE (23:57)
[2018-02-25] MEDS: TEMAZEPAM 7.5 MG CAPSULE PO PRN ×2 (00:16→23:00)
--- NOTE | 2018-02-25 00:27 | NUR ---
TEMAZEPAM 7.5 MG CAP 1 PO GIVEN FOR SLEEP PER PATIENT'S REQUEST
[2018-02-25] MEDS: ACETAMINOPHEN 325 MG TABLET PO PRN ×2 (03:48→18:15)
--- NOTE | 2018-02-25 03:49 | NUR ---
UP TO NURSE'S STATION, C/O GEN. BODY PAIN, TYLENOL 650 MG TAB PO GIVEN.
[2018-02-25] MEDS: clonazePAM 0.5 MG TABLET PO PRN ×4 (03:51→20:07)
--- NOTE | 2018-02-25 03:52 | NUR ---
KLONOPIN 0.5 MG TAB PO GIVEN FOR ANXIETY
--- NOTE | 2018-02-25 07:37 | NUR ---
GPS RN NOTES PATIENT RECEIVED RESTING INSIDE ROOM. AWAKE, ALERT AND ORIENTED, ABLE TO MAKE NEEDS KNOWN AND FOLLOW SIMPLE INSTRUCTIONS. BREATHING EVEN AND UNLABORED. NO SOB OR ACUTE DISTRESS NOTED. PATIENT CALM AND RELAXED. NO CHANGES IN LOC NOTED AT THIS TIME. WILL CONTINUE TO MONITOR. BED LOCKED AND IN LOW POSITION. BILATERAL UPPER SIDE RAILS UP AND LOCKED. CALL LIGHT WITHIN EASY REACH
[2018-02-25 08:00] VITALS: BP 136/75
[2018-02-25 08:35] LABS: CHOLESTEROL 171 mg/dL (<200); HDL CHOLESTEROL 71 mg/dL (40-60); LDL 89 mg/dL (0-99); TRIGLYCERIDES 83 mg/dL (30-150)
--- NOTE | 2018-02-25 08:40 | NUR ---
GPS RN NOTES PATIENT REPORTED FEELING OF ANXIOUSNESS. REQUESTED CLONAZEPAM. ATTEMPTED NON-PHARMACOLOGICAL INTERVENTIONS BUT PATIENT VERBALIZED SHE STILL FEELS ANXIOUS. CLONAZEPAM ADMINISTERED ORDERED PRN. WILL CONTINUE TO MONITOR
[2018-02-25 08:41] LABS: ALBUMIN 3.3 g/dL (3.4-5.0); BILIRUBIN,TOTAL 0.4 mg/dL (0.2-1.0); CALCIUM, SERUM 8.8 mg/dL (8.5-10.1); CREATININE 0.7 mg/dL (0.6-1.3); TOTAL PROTEIN, SERUM 6.9 g/dL (6.4-8.2)
[2018-02-25 16:00] VITALS: BP 115/68
--- NOTE | 2018-02-25 19:30 | NUR ---
RN NOTES RECEIVED PATIENT IN BED AWAKE, AO X 3, ABLE TO MAKE NEEDS KNOWN. NO ACUTE DISTRESS NOTED. DENIES ANY PAIN AT THIS TIME. PATIENT ABLE TO AMBULATE WITH STEADY GATE. PATIENT IS CALM AND COOPERATIVE. SAFETY REMINDERS GIVEN. ON LOW BED WITH BILATERAL UPPER SIDE RAILS UP. CALL ISAACS WITHIN EASY REACH. WILL CONTINUE TO MONITOR.
[2018-02-25 19:55] VITALS: BP 122/86
[2018-02-25 20:00] VITALS: BP 122/86
[2018-02-25] MEDS: MAG HYDROX/AL HYDROX/SIMETH 30 ML UDC PO PRN (20:08)
[2018-02-26] MEDS: clonazePAM 0.5 MG TABLET PO PRN ×4 (05:42→19:46)
[2018-02-26] MEDS: MAG HYDROX/AL HYDROX/SIMETH 30 ML UDC PO PRN (05:42)
--- NOTE | 2018-02-26 06:21 | NUR ---
RN NOTES PATIENT AWAKE IN BED, RESPIRATIONS EVEN. NO SIGNS OF PAIN NOTED. NEEDS ATTENDED. SAFETY PRECAUTIONS AND COMFORT MEASURES IN PLACE. WILL GIVE REPORT TO DAY SHIFT FOR CONTINUITY OF CARE.
[2018-02-26] MEDS: ACETAMINOPHEN 325 MG TABLET PO PRN ×2 (07:10→19:39)
[2018-02-26 08:01] VITALS: BP 100/67
[2018-02-26] MEDS: CEPHALEXIN MONOHYDRATE 500 MG CAPSULE PO SCH ×2 (10:00→21:18)
--- NOTE | 2018-02-26 10:00 | NUR ---
GPS/RN PATIENT IS ANXIOUS AND RESTLESS, PACING THE UNIT, ADMINISTERED KLONOPIN 0.5 MG, WILL CONTINUE TO MONITOR.
[2018-02-26 13:16] LABS: APPEARANCE,URINE CLEAR (CLEAR); BILIRUBIN,URINE NEGATIVE (NEGATIVE); BLOOD, URINE NEGATIVE Ery/uL (NEGATIVE); COLOR,URINE YELLOW (YELLOW); KETONES,URINE NEGATIVE (NEGATIVE); LEUKOCYTE ESTERASE ,URINE NEGATIVE (NEGATIVE); NITRITE, URINE NEGATIVE (NEGATIVE); PROTEIN,URINE NEGATIVE (NEGATIVE); UGLUCOSE NEGATIVE (NEGATIVE); UROBILINOGEN,URINE 0.2 EU/dL (0.2)
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
--- NOTE | 2018-02-26 15:33 | NUR ---
GPS/RN PATIENT IS REPORTS THAT SHE IS EXTREMELY ANXIOUS, ADMINISTERED KLONOPIN 0.5 MG, WILL CONTINUE TO MONITOR.
[2018-02-26 16:09] VITALS: BP 118/59
[2018-02-26] MEDS: ONDANSETRON 4 MG TAB.RAPDIS PO PRN (18:58)
--- NOTE | 2018-02-26 19:00 | NUR ---
GPS/RN PATIENT REPORTS VOMITING X 1, ADMINISTERED ZOFRAN 4 MG, WILL CONTINUE TO MONITOR AND REPORT TO ONCOMING SHIFT.
--- NOTE | 2018-02-26 19:46 | NUR ---
GPS RN NOTES: PATIENT IS VERY ANXIOUS, PATIENT IS REQUESTING FOR KLONOPIN, VSS. ADMINISTERED KLONOPIN 0.5MG PO PRN ORDERED . WILL CONTINUE TO MONITOR. Addendum: 02/27/18 at 0710 by AMADOR TATE RN WRONG CHARTING
--- NOTE | 2018-02-26 19:46 | NUR ---
GPS RN NOTES: PATIENT IS VERY ANXIOUS, PATIENT IS REQUESTING FOR KLONOPIN, VSS. ADMINISTERED KLONOPIN 0.5MG PO PRN ORDERED . WILL CONTINUE TO MONITOR.
[2018-02-26 20:18] VITALS: BP 133/67
[2018-02-26] MEDS: LamoTRIgine 100 MG TABLET PO SCH (21:18)
[2018-02-26] MEDS: TEMAZEPAM 7.5 MG CAPSULE PO PRN (21:47)
[2018-02-26] MEDS: QUETIAPINE FUMARATE 100 MG TABLET PO SCH ×2 (22:24→22:47)
[2018-02-27] MEDS: clonazePAM 0.5 MG TABLET PO PRN ×2 (06:42→12:33)
--- NOTE | 2018-02-27 06:45 | NUR ---
GPS RN NOTES: PATIENT IS VERY ANXIOUS, PATIENT IS REQUESTING FOR KLONOPIN, VSS. ADMINISTERED KLONOPIN 0.5MG PO PRN ORDERED . WILL CONTINUE TO MONITOR.
[2018-02-27 08:00] VITALS: BP 91/58
[2018-02-27] MEDS: TOLTERODINE 2 MG TABLET PO SCH (08:21)
[2018-02-27] MEDS: CEPHALEXIN MONOHYDRATE 500 MG CAPSULE PO SCH ×2 (08:21→21:19)
[2018-02-27] MEDS: ACETAMINOPHEN 325 MG TABLET PO PRN (08:21)
[2018-02-27] MEDS: DOCUSATE SODIUM 100 MG CAPSULE PO SCH (08:21)
[2018-02-27] MEDS: FLUTICASONE/VILANTEROL 1 EACH BLST.W.DEV IH SCH (08:21)
[2018-02-27] MEDS: PANTOPRAZOLE 40 MG TABLET.DR PO SCH (08:21)
[2018-02-27] MEDS: ONDANSETRON 4 MG TAB.RAPDIS PO PRN ×2 (08:25→16:48)
--- NOTE | 2018-02-27 08:25 | NUR ---
GPS/RN PATIENT REPORTS NAUSEA , ADMINISTERED ZOFRAN 4 MG, WILL CONTINUE TO MONITOR AND REPORT TO ONCOMING SHIFT.
[2018-02-27] MEDS: HYDROCORTISONE 20 MG TABLET PO SCH (10:09)
--- NOTE | 2018-02-27 12:33 | NUR ---
GPS/RN PATIENT IS REPORTS THAT SHE IS EXTREMELY ANXIOUS, ADMINISTERED KLONOPIN 0.5 MG, WILL CONTINUE TO MONITOR.
[2018-02-27] MEDS: HYDROCORTISONE 5 MG TABLET PO SCH ×2 (12:43→16:47)
[2018-02-27] MEDS: MAG HYDROX/AL HYDROX/SIMETH 30 ML UDC PO PRN (14:59)
[2018-02-27 16:00] VITALS: BP 115/79
[2018-02-27] MEDS ORDERED: HYDROCODONE/APAP 5/325MG 1 EACH TABLET PO PRN (17:30)
[2018-02-27] MEDS: oxyCODONE/APAP (5/325 MG) 1 UDTAB TABLET PO PRN (18:16)
[2018-02-27 19:59] VITALS: BP 107/72
[2018-02-27] MEDS: LamoTRIgine 100 MG TABLET PO SCH (21:19)
[2018-02-27] MEDS: QUETIAPINE FUMARATE 100 MG TABLET PO SCH (21:19)
[2018-02-28 08:00] VITALS: BP 100/74
[2018-02-28] MEDS: PANTOPRAZOLE 40 MG TABLET.DR PO SCH (08:19)
[2018-02-28] MEDS: HYDROCORTISONE 20 MG TABLET PO SCH (08:19)
[2018-02-28] MEDS: CEPHALEXIN MONOHYDRATE 500 MG CAPSULE PO SCH ×2 (08:19→20:40)
[2018-02-28] MEDS: DOCUSATE SODIUM 100 MG CAPSULE PO SCH (08:19)
[2018-02-28] MEDS: clonazePAM 0.5 MG TABLET PO PRN ×3 (08:25→18:43)
[2018-02-28] MEDS: TOLTERODINE 2 MG TABLET PO SCH (08:26)
[2018-02-28] MEDS: FLUTICASONE/VILANTEROL 1 EACH BLST.W.DEV IH SCH (08:26)
[2018-02-28] MEDS: oxyCODONE/APAP (5/325 MG) 1 UDTAB TABLET PO PRN ×2 (10:15→16:36)
[2018-02-28] MEDS: HYDROCORTISONE 5 MG TABLET PO SCH ×2 (11:42→16:38)
[2018-02-28] MEDS: ONDANSETRON 4 MG TAB.RAPDIS PO PRN (12:05)
[2018-02-28 16:00] VITALS: BP 108/71
[2018-02-28 20:27] VITALS: BP 98/59
[2018-02-28] MEDS: QUETIAPINE FUMARATE 100 MG TABLET PO SCH (21:15)
[2018-02-28] MEDS: LamoTRIgine 25 MG TABLET PO SCH (21:16)
[2018-02-28] MEDS: LamoTRIgine 100 MG TABLET PO SCH (21:16)
[2018-02-28 23:00] VITALS: BP 110/70
[2018-03-01] MEDS: oxyCODONE/APAP (5/325 MG) 1 UDTAB TABLET PO PRN ×3 (06:02→18:26)
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
[2018-03-01] MEDS ORDERED: OLANZAPINE 10 MG VIAL IM STA (07:59)
[2018-03-01] MEDS ORDERED: LORAZEPAM INJ 2 MG/ML VIAL IM STA (07:59)
[2018-03-01 08:00] VITALS: BP 106/76
[2018-03-01] MEDS: TOLTERODINE 2 MG TABLET PO SCH (08:15)
[2018-03-01] MEDS: PANTOPRAZOLE 40 MG TABLET.DR PO SCH (08:15)
[2018-03-01] MEDS: FLUTICASONE/VILANTEROL 1 EACH BLST.W.DEV IH SCH (08:15)
[2018-03-01] MEDS: DOCUSATE SODIUM 100 MG CAPSULE PO SCH (08:15)
[2018-03-01] MEDS: HYDROCORTISONE 20 MG TABLET PO SCH (08:15)
[2018-03-01 08:21] VITALS: BP 106/76
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
[2018-03-01] MEDS: CEPHALEXIN MONOHYDRATE 500 MG CAPSULE PO SCH ×2 (09:11→20:09)
[2018-03-01] MEDS: MAG HYDROX/AL HYDROX/SIMETH 30 ML UDC PO PRN (11:00)
[2018-03-01] MEDS: ONDANSETRON 4 MG TAB.RAPDIS PO PRN (11:01)
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
[2018-03-01] MEDS: HYDROCORTISONE 5 MG TABLET PO SCH ×2 (12:24→17:02)
[2018-03-01] MEDS: clonazePAM 0.5 MG TABLET PO PRN (13:29)
[2018-03-01 16:03] VITALS: BP 113/77
[2018-03-01] MEDS ORDERED: LORAZEPAM 1 MG TABLET PO STA (16:09)
[2018-03-01] MEDS: OLANZAPINE 5 MG/TAB.RAPDIS PO SCH (17:03)
[2018-03-01 20:00] VITALS: BP 103/66
[2018-03-01] MEDS: LamoTRIgine 100 MG TABLET PO SCH (21:21)
[2018-03-01] MEDS: QUETIAPINE FUMARATE 100 MG TABLET PO SCH (21:21)
[2018-03-01] MEDS: LamoTRIgine 25 MG TABLET PO SCH (21:21)
[2018-03-02] MEDS: TEMAZEPAM 7.5 MG CAPSULE PO PRN (02:08)
--- NOTE | 2018-03-02 02:32 | NUR ---
Patient unable to sleep, Temazepam 7.5 mg cap 1 po given Addendum: 03/02/18 at 0523 by BRANDYN PINK RN Patient changed her mind, refused Temazepam 7.5 mg cap she requested.
[2018-03-02] MEDS: clonazePAM 0.5 MG TABLET PO PRN ×4 (02:34→23:47)
--- NOTE | 2018-03-02 02:35 | NUR ---
PATIENT FEELING ANXIOUS, KLONOPIN 0.5 MG TAB 1 PO GIVEN.
[2018-03-02] MEDS: oxyCODONE/APAP (5/325 MG) 1 UDTAB TABLET PO PRN ×3 (05:18→19:56)
--- NOTE | 2018-03-02 05:19 | NUR ---
Patient c/o pain on her knees and spine. Percocet 5/325 mg tab 1 po given. Vitals 104/65, pulse 91.
[2018-03-02 08:19] VITALS: BP 135/70
[2018-03-02] MEDS: ONDANSETRON 4 MG TAB.RAPDIS PO PRN (08:39)
[2018-03-02] MEDS: PANTOPRAZOLE 40 MG TABLET.DR PO SCH (08:39)
[2018-03-02] MEDS: OLANZAPINE 5 MG/TAB.RAPDIS PO SCH (08:39)
[2018-03-02] MEDS: HYDROCORTISONE 20 MG TABLET PO SCH (08:39)
[2018-03-02] MEDS: DOCUSATE SODIUM 100 MG CAPSULE PO SCH (08:40)
[2018-03-02] MEDS: TOLTERODINE 2 MG TABLET PO SCH (08:41)
[2018-03-02] MEDS: FLUTICASONE/VILANTEROL 1 EACH BLST.W.DEV IH SCH (08:43)
--- NOTE | 2018-03-02 08:46 | NUR ---
GPS/RN-NOTES PATIENT STATED "I JUST THROW OUT AND NAUSEOUS ,CAN I HAVE MY NAUSEA MEDICATION",ZOFRAN 4MG P.O GIVEN PRN ORDER. WILL CONT. MONITORING.
[2018-03-02] MEDS: CEPHALEXIN MONOHYDRATE 500 MG CAPSULE PO SCH ×2 (09:07→20:22)
--- NOTE | 2018-03-02 09:07 | NUR ---
GPS/RN-NOTES PATIENT STATED" I NEED MY ANXIETY MEDICATION,I'M ANXIOUS". KLONOPIN 0.5MG P.O GIVEN PRN ORDER. WILL CONT. MONITORING FOR SAFETY AND BEHAVIOR.
--- NOTE | 2018-03-02 10:10 | NUR ---
GPS/RN-NOTES PATIENT IN THE DAY ROOM PARTICIPATING IN THE ACTIVITY GROUP, CALM,NO ACUTE DISTRESS NOTED.
[2018-03-02] MEDS: HYDROCORTISONE 5 MG TABLET PO SCH ×2 (12:45→16:06)
[2018-03-02 16:00] VITALS: BP 111/72
--- NOTE | 2018-03-02 17:15 | NUR ---
GPS/RN-NOTES PATIENT STATED" I NEED MY ANXIETY MEDICATION,MY THOUGHTS IS RACING". KLONOPIN 0.5MG P.O GIVEN PRN ORDER. WILL CONT. MONITORING FOR SAFETY AND BEHAVIOR.
--- NOTE | 2018-03-02 19:56 | NUR ---
PATIENT ASKED, " IS IT TIME FOR MY PAIN MEDS, I HAVE PAIN IN MY SPINE." PAIN SCALE ABOUT 8/10, PERCOCET 5/325 MG TAB PO GIVEN.
[2018-03-02 20:00] VITALS: BP 125/70
[2018-03-02] MEDS: LamoTRIgine 25 MG TABLET PO SCH (21:20)
[2018-03-02] MEDS: LamoTRIgine 100 MG TABLET PO SCH (21:21)
[2018-03-02] MEDS: QUETIAPINE FUMARATE 100 MG TABLET PO SCH (21:21)
--- NOTE | 2018-03-02 23:47 | NUR ---
PATIENT STATED, " I AM FEELING ANXIOUS." KLONOPIN 0.5 MG TAB PO GIVEN.
[2018-03-03] MEDS: clonazePAM 0.5 MG TABLET PO PRN ×4 (04:15→22:29)
--- NOTE | 2018-03-03 04:15 | NUR ---
Patient c/o anxiety, klonopin 0.5 mg tab 1 po given.
[2018-03-03 08:16] VITALS: BP 91/75
[2018-03-03] MEDS: PANTOPRAZOLE 40 MG TABLET.DR PO SCH (08:53)
[2018-03-03] MEDS: HYDROCORTISONE 20 MG TABLET PO SCH (08:53)
[2018-03-03] MEDS: DOCUSATE SODIUM 100 MG CAPSULE PO SCH (08:53)
[2018-03-03] MEDS: TOLTERODINE 2 MG TABLET PO SCH (08:53)
[2018-03-03] MEDS: FLUTICASONE/VILANTEROL 1 EACH BLST.W.DEV IH SCH (08:55)
[2018-03-03] MEDS: OLANZAPINE 5 MG/TAB.RAPDIS PO SCH (09:09)
[2018-03-03] MEDS: CEPHALEXIN MONOHYDRATE 500 MG CAPSULE PO SCH ×2 (09:18→20:23)
[2018-03-03] MEDS: HYDROCORTISONE 5 MG TABLET PO SCH ×2 (12:14→16:32)
[2018-03-03] MEDS: oxyCODONE/APAP (5/325 MG) 1 UDTAB TABLET PO PRN ×2 (12:38→19:43)
--- NOTE | 2018-03-03 12:38 | NUR ---
GPS/RN MEDICATED FOR PAIN REQUESTED OXYCODONE/APAP 5/325MG PO
[2018-03-03 16:00] VITALS: BP 111/70
--- NOTE | 2018-03-03 19:44 | NUR ---
PATIENT STANDING AT THE DOOR OF HER ROOM, C/O ACHY BACK PAIN, 8/10 ON PAIN SCALE, PERCOCET 5/325 MG TAB PO GIVEN.
[2018-03-03 20:00] VITALS: BP 122/71
[2018-03-03] MEDS: LamoTRIgine 25 MG TABLET PO SCH (22:28)
[2018-03-03] MEDS: LamoTRIgine 100 MG TABLET PO SCH (22:28)
[2018-03-03] MEDS: QUETIAPINE FUMARATE 100 MG TABLET PO SCH (22:29)
--- NOTE | 2018-03-03 22:30 | NUR ---
Klonopin 0.5 mg tab 1 po given for anxiety per her request
[2018-03-03] MEDS: ONDANSETRON 4 MG TAB.RAPDIS PO PRN (22:35)
--- NOTE | 2018-03-03 22:40 | NUR ---
Patient c/o vomiting x1, small amount with food particles, zofran 4 mg tab sl administered
[2018-03-04] MEDS: TEMAZEPAM 7.5 MG CAPSULE PO PRN ×2 (00:52→21:33)
[2018-03-04] MEDS: oxyCODONE/APAP (5/325 MG) 1 UDTAB TABLET PO PRN ×3 (05:54→18:19)
--- NOTE | 2018-03-04 05:54 | NUR ---
UP TO N. STATION, C/O ACHY BACK PAIN 8/10 ON PAIN SCALE. PERCOCET 5/325 MG TAB 1 PO GIVEN.
[2018-03-04 08:00] VITALS: BP 108/64
[2018-03-04] MEDS: DOCUSATE SODIUM 100 MG CAPSULE PO SCH (09:11)
[2018-03-04] MEDS: OLANZAPINE 5 MG/TAB.RAPDIS PO SCH (09:11)
[2018-03-04] MEDS: CEPHALEXIN MONOHYDRATE 500 MG CAPSULE PO SCH (09:11)
[2018-03-04] MEDS: PANTOPRAZOLE 40 MG TABLET.DR PO SCH (09:11)
[2018-03-04] MEDS: HYDROCORTISONE 20 MG TABLET PO SCH (09:11)
[2018-03-04] MEDS: MULTIVITAMINS,THERAGRAN 1 UDTAB TABLET PO SCH (09:11)
[2018-03-04] MEDS: FLUTICASONE/VILANTEROL 1 EACH BLST.W.DEV IH SCH (09:12)
[2018-03-04] MEDS: TOLTERODINE 2 MG TABLET PO SCH (09:12)
[2018-03-04] MEDS: clonazePAM 0.5 MG TABLET PO PRN ×3 (09:13→19:52)
[2018-03-04] MEDS: ONDANSETRON 4 MG TAB.RAPDIS PO PRN (09:14)
[2018-03-04] MEDS: MAG HYDROX/AL HYDROX/SIMETH 30 ML UDC PO PRN ×2 (09:15→21:20)
[2018-03-04] MEDS: HYDROCORTISONE 5 MG TABLET PO SCH ×2 (12:02→16:50)
[2018-03-04 16:00] VITALS: BP 116/97
--- NOTE | 2018-03-04 19:52 | NUR ---
GPS RN NOTES: PATIENT IS ANXIOUS AND RESTLESS AND REQUESTING FOR KLONOPIN. VSS. ADMINISTERED KLONOPIN 0.5MG PO ORDERED. WILL CONTINUE TO MONITOR [id number] FOR SAFETY AND BEHAVIOR.
[2018-03-04 19:58] VITALS: BP 112/72
[2018-03-04] MEDS: LamoTRIgine 25 MG TABLET PO SCH (21:00)
[2018-03-04] MEDS: LamoTRIgine 100 MG TABLET PO SCH (21:01)
[2018-03-04] MEDS: QUETIAPINE FUMARATE 100 MG TABLET PO SCH (21:01)
--- NOTE | 2018-03-04 21:20 | NUR ---
GPS RN NOTES: PATIENT C/O INDIGESTION AND ABDOMINAL DISCOMFORT AND REQUESTING FOR MAALOX. ADMINISTERED MAALOX 30ML PO ORDERED. WILL CONTINUE TO MONITOR.
[2018-03-05] MEDS: oxyCODONE/APAP (5/325 MG) 1 UDTAB TABLET PO PRN ×3 (02:27→18:33)
--- NOTE | 2018-03-05 02:27 | NUR ---
GPS RN NOTES: PATIENT C/O LOWER BACK PAIN ON A PAIN SCALE OF 8/10. ADMINISTERED PERCOCET 5/325MG PO ORDERED. WILL CONTINUE TO MONITOR.
[2018-03-05] MEDS: clonazePAM 0.5 MG TABLET PO PRN ×3 (04:42→20:37)
--- NOTE | 2018-03-05 04:42 | NUR ---
GPS RN NOTES: PATIENT STATED "I AM FEELING ANXIOUS" AND REQUESTING FOR KLONOPIN. VSS. ADMINISTERED KLONOPIN 0.5MG PO ORDERED. WILL CONTINUE TO MONITOR [id number] FOR SAFETY AND BEHAVIOR.
[2018-03-05 08:00] VITALS: BP 107/65
[2018-03-05] MEDS: DOCUSATE SODIUM 100 MG CAPSULE PO SCH (08:34)
[2018-03-05] MEDS: MULTIVITAMINS,THERAGRAN 1 UDTAB TABLET PO SCH (08:34)
[2018-03-05] MEDS: OLANZAPINE 5 MG/TAB.RAPDIS PO SCH (08:34)
[2018-03-05] MEDS: HYDROCORTISONE 20 MG TABLET PO SCH (08:34)
[2018-03-05] MEDS: PANTOPRAZOLE 40 MG TABLET.DR PO SCH (08:34)
[2018-03-05] MEDS: FLUTICASONE/VILANTEROL 1 EACH BLST.W.DEV IH SCH (08:36)
[2018-03-05] MEDS: TOLTERODINE 2 MG TABLET PO SCH (08:36)
[2018-03-05] MEDS: HYDROCORTISONE 5 MG TABLET PO SCH ×2 (12:19→16:01)
--- NOTE | 2018-03-05 12:48 | NUR ---
[id number]: GAVE PERCOCET 5/325 MG PO DUE TO GENERALIZED PAIN 06/15 UPON PT REQUEST AND WILL CONTINUE TO MONITOR FOR EFFECTIVENESS OF MEDICATION
[2018-03-05 13:23] LABS: BASOPHILS % (AUTO) 0.3 % (0.0-2.0); EOSINOPHILS % (AUTO) 1.2 % (0.0-6.0); HEMATOCRIT 37 % (33-45); HEMOGLOBIN 12.7 g/dL (11.5-14.8); LYMPHOCYTES # (AUTO) 1.1 /CMM (0.8-4.8); MEAN CORPUSCULAR HGB CONC 34 g/dl (31.0-36.0); MEAN CORPUSCULAR VOLUME 90 fL (82-100); MONOCYTES # (AUTO) 0.3 /CMM (0.1-1.30); MONOCYTES % (AUTO) 4.6 % (2.0-12.0); NEUTROPHILS # (AUTO) 5.4 /CMM (1.8-8.9); NEUTROPHILS % (AUTO) 77.9 % (43.0-81.0); PLATELET COUNT (AUTO) 263 /CMM (150-450); RED BLOOD CELL COUNT(AUTO) 4.13 MIL/uL (4.0-5.2); WHITE BLOOD COUNT (AUTO) 6.9 K/uL (4.3-11.0)
[2018-03-05 16:05] VITALS: BP 100/62
--- NOTE | 2018-03-05 18:33 | NUR ---
[id number]: GAVE PERCOCET 5/325 MG PO DUE TO GENERALIZED PAIN 06/15 UPON PT REQUEST AND WILL CONTINUE TO MONITOR FOR EFFECTIVENESS OF MEDICATION
[2018-03-05 19:29] VITALS: BP 120/75
[2018-03-05] MEDS: QUETIAPINE FUMARATE 100 MG TABLET PO SCH (21:19)
[2018-03-05] MEDS: LamoTRIgine 100 MG TABLET PO SCH (21:20)
[2018-03-05] MEDS: LamoTRIgine 25 MG TABLET PO SCH (21:20)
[2018-03-06] MEDS: oxyCODONE/APAP (5/325 MG) 1 UDTAB TABLET PO PRN ×2 (00:56→06:58)
[2018-03-06] MEDS: clonazePAM 0.5 MG TABLET PO PRN (03:18)
[2018-03-06 08:00] VITALS: BP 101/70
[2018-03-06] MEDS ORDERED: ENSURE ENLIVE CHOC 237 ML CAN PO SCH (08:00)
[2018-03-06] MEDS: DOCUSATE SODIUM 100 MG CAPSULE PO SCH (08:18)
[2018-03-06] MEDS: HYDROCORTISONE 20 MG TABLET PO SCH (08:19)
[2018-03-06] MEDS: MULTIVITAMINS,THERAGRAN 1 UDTAB TABLET PO SCH (08:19)
[2018-03-06] MEDS: TOLTERODINE 2 MG TABLET PO SCH (08:19)
[2018-03-06] MEDS: PANTOPRAZOLE 40 MG TABLET.DR PO SCH (08:19)
[2018-03-06] MEDS: FLUTICASONE/VILANTEROL 1 EACH BLST.W.DEV IH SCH (08:27)
--- NOTE | 2018-03-06 10:11 | NUR ---
Discharge Note: Pt was discharged back home to [address] [facility] [address] [facility] [address] . Pts was agitated and anxious to leave home on time due to her having a doctors appointment. Pts son David Menard [phone] was notified and voicemail was left. Pt denied suicidal/homicidal ideations and denied visual/auditory hallucinations. Patient has a history of substance use and was provided referral to address her substance use. Patient was referred to the [facility] [address] [place] [address] / and was encouraged to present at 9am on Wednesday March 07, 2018. Additional resources included [facility] [address] [place] [address] and [facility] [address] [place] [address] . Pt has an appointment scheduled on Tuesday March 06, 2018 at 4:00pm with Volunteer Services Supervisor Art Trinidad [address] [facility] [address] [place], [place] [id number] [phone] and will follow up with Volunteer Services Supervisor Estuardo Joyner [address] [facility] [address], [place], [place] [id number] [phone]. Pt was encouraged to schedule a follow up appointment with psychiatrist Dr. Gayle Hutchinson [address] [facility] [address], [place], [place] [phone] The multidisciplinary exitcare form was done, printed, signed, and given to the patient. Addendum: 03/06/18 at 1038 by GIL VILLASENOR Pt has scheduled appointment with psychiatrist Dr. Gayle Hutchinson [address] [id number] [phone] on Friday March 09, 2018 at 9:00am.
--- NOTE | 2018-03-06 11:19 | NUR ---
HAMILTON faxed referral to Shama from [facility] [phone].
--- NOTE | 2018-03-06 11:45 | NUR ---
[id number]: PT IS 57 YEARS OLD FEMALE DISCHARGE TO HOME LOCATED AT [address] [place] [address]. [address], [place]. [address], IN STABLE CONDITION. COMPLAINT WITH MEDICATIONS, COOPERATIVE WITH TREATMENT PLANS. PT DENIES SI/HI AND INSTRUCTED TO GO TO THE CLOSEST ER IF DEVELOPING SI/HI. BEHAVIOR IMPROVED, PSYCHIATRIC TX PLANS MET, MEDICAL TX PLANS DEFERRED FOR CONTINUAL MONITORING. EDUCATED PT ABOUT AFTER CARE PLAN AND COPY PROVIDED. RETURNED PERSONAL BELONGINGS TO PT. MEDICATIONS RECONCILED WITH YANELI POPE AND DR. WILLETT. PT SIGNED DISCHARGE PAPERWORK. SKIN ASSESSMENT DONE. PT LEFT THE UNIT ACCOMPANIED BY STAFF VIA TAXI
--- NOTE | 2018-03-22 11:21 | NUR ---
15 DAY SUBSTANCE ABUSE FOLLOW UP: unable to follow up due to pts contact number no longer valid.
== END 2018-03-06 11:45 | disposition home health service (06) | DRG 885 ==
LOC: ER 20:34 → GPS 22:49
PROVIDERS: ADMIT Psychiatry & Neurology Psychiatry; ATTEND Psychiatry & Neurology Psychiatry
DX: F31.60 Bipolar disorder, current episode mixed, unspecified (principal); N18.9 Chronic kidney disease, unspecified; F11.20 Opioid dependence, uncomplicated; E11.22 Type 2 diabetes mellitus with diabetic chronic kidney disease; E44.0 Moderate protein-calorie malnutrition; R45.851 Suicidal ideations; E27.40 Unspecified adrenocortical insufficiency; N39.0 Urinary tract infection, site not specified; I12.9 Hypertensive chronic kidney disease with stage 1 through stage 4 chronic kidney disease, or unspecified chronic kidney disease; G89.4 Chronic pain syndrome; Z96.659 Presence of unspecified artificial knee joint; Z96.612 Presence of left artificial shoulder joint; Z95.0 Presence of cardiac pacemaker; Z90.710 Acquired absence of both cervix and uterus; Z87.891 Personal history of nicotine dependence; Z83.3 Family history of diabetes mellitus; Z79.899 Other long term (current) drug therapy; Z88.5 Allergy status to narcotic agent; Z88.8 Allergy status to other drugs, medicaments and biological substances; M19.90 Unspecified osteoarthritis, unspecified site; E78.5 Hyperlipidemia, unspecified; F20.9 Schizophrenia, unspecified; K21.9 Gastro-esophageal reflux disease without esophagitis
CPT/HCPCS: 36415; 80048-TC; 80053-TC; 80061-TC; 80076-TC; 80305; 81000-TC; 85025-TC; 87081-TC; 87086-TC; A4606; G0480; J2060; J3490; Q0162; Z7610

== ENCOUNTER 2018-03-27 11:17 | Emergency (ER) | payer MEDICARE, MEDICAID ==
[~2018-03-27] VITALS: Ht 160 cm; Wt 56.2 kg
[~2018-03-27 11:17] MED LIST changes: -QUET200T PO
[2018-03-27 12:18] LABS: BASOPHILS % (AUTO) 0.6 % (0.0-2.0); EOSINOPHILS % (AUTO) 0.4 % (0.0-6.0); HEMATOCRIT 35 % (33-45); HEMOGLOBIN 12.1 g/dL (11.5-14.8); LYMPHOCYTES # (AUTO) 1.3 /CMM (0.8-4.8); LYMPHOCYTES % (AUTO) 25.2 % (20.0-44.0); MEAN CORPUSCULAR HEMOGLOBIN 31 PG (26.0-33.0); MEAN CORPUSCULAR HGB CONC 35 g/dl (31.0-36.0); MEAN CORPUSCULAR VOLUME 90 fL (82-100); MONOCYTES # (AUTO) 0.4 /CMM (0.1-1.30); MONOCYTES % (AUTO) 7.6 % (2.0-12.0); NEUTROPHILS # (AUTO) 3.3 /CMM (1.8-8.9); NEUTROPHILS % (AUTO) 66.2 % (43.0-81.0); RDW COEFFICIENT OF VARIATION 12.8 (11.5-15.0); RED BLOOD CELL COUNT(AUTO) 3.86 MIL/uL (4.0-5.2)
[2018-03-27 12:20] LABS: PLATELET COUNT (AUTO) 269 /CMM (150-450)
[2018-03-27 12:26] LABS: CALCIUM, SERUM 7.9 mg/dL (8.5-10.1); CARBON DIOXIDE 27 mmol/L (21-32); CHLORIDE 104 mmol/L (98-107); CREATININE 0.8 mg/dL (0.6-1.3); GLUCOSE 85 mg/dL (74-106); POTASSIUM 3.7 mmol/L (3.5-5.1); SODIUM SERUM 139 mmol/L (136-145); UREA NITROGEN, BLOOD 12 mg/dL (7-18)
[2018-03-27 12:32] LABS: ALANINE AMINOTRANSFERASE 28 U/L (12-78); ALBUMIN 3.2 g/dL (3.4-5.0); ALCOHOL, BLOOD < 3 mg/dL (0-0); ALKALINE PHOSPHATASE 89 U/L (46-116); ASPARTATE AMINOTRANSFERASE 27 U/L (15-37); BILIRUBIN,TOTAL 0.2 mg/dL (0.2-1.0); SALICYLATE 1.8 mg/dL (2.8-20.0); TOTAL PROTEIN, SERUM 6.7 g/dL (6.4-8.2)
[2018-03-27 12:33] LABS: ACETAMINOPHEN < 2 ug/ml (10-30)
--- NOTE | 2018-03-27 12:39 | NUR ---
DR ANDERSONED DR. NELSON FOR MRI APPROVAL.
--- NOTE | 2018-03-27 12:40 | NUR ---
DR. NELSON TEXTED BACK, ON HOLD FOR NOW HE WILL LET US KNOW.
--- NOTE | 2018-03-27 12:48 | NUR ---
MRI CX PER DR. NELSON
[2018-03-27] MEDS ORDERED: MECLIZINE HCL 12.5 MG TABLET PO ONE (13:00)
[2018-03-27] MEDS ORDERED: LORAZEPAM 1 MG TABLET PO ONE (13:00)
[2018-03-27] MEDS ORDERED: MECLIZINE HCL 25 MG TABLET ONE (13:04)
[2018-03-27] MEDS ORDERED: LORAZEPAM 1 MG TABLET ONE (13:04)
[2018-03-27 13:49] LABS: APPEARANCE,URINE Clear (CLEAR); BILIRUBIN,URINE Negative (NEGATIVE); BLOOD, URINE Negative Ery/uL (NEGATIVE); COLOR,URINE Yellow (YELLOW); KETONES,URINE Negative (NEGATIVE); LEUKOCYTE ESTERASE ,URINE Negative (NEGATIVE); NITRITE, URINE Negative (NEGATIVE); PROTEIN,URINE Negative (NEGATIVE); UGLUCOSE Negative (NEGATIVE); UROBILINOGEN,URINE 0.2 EU/dL (0.2)
[2018-03-27 14:33] VITALS: BP 105/70
--- NOTE | 2018-03-27 14:33 | NUR ---
Patient discharged to home in stable condition. Written and verbal after care instructions given. Patient verbalizes understanding of instruction.
== END 2018-03-27 14:34 | disposition home or self-care (01) ==
LOC: ER 11:20
DX: F15.10 Other stimulant abuse, uncomplicated (principal); R42 Dizziness and giddiness; E11.9 Type 2 diabetes mellitus without complications; F25.0 Schizoaffective disorder, bipolar type; F31.9 Bipolar disorder, unspecified; F17.200 Nicotine dependence, unspecified, uncomplicated; G89.4 Chronic pain syndrome; R56.9 Unspecified convulsions; Z88.5 Allergy status to narcotic agent; Z88.8 Allergy status to other drugs, medicaments and biological substances
CPT/HCPCS: 36415; 80048-TC; 80076-TC; 80305; 81000-TC; 85025-TC; A4606; G0480; J8597; Z7610

== ENCOUNTER 2018-05-02 11:52 | Emergency (ER) | payer MEDICARE, MEDICAID ==
[~2018-05-02] VITALS: Ht 160 cm; Wt 51.3 kg
[2018-05-02 11:54] VITALS: BP 138/74
[2018-05-02] MEDS ORDERED: HYDROCODONE/APAP 5/325MG 1 EACH TABLET ONE (12:12)
[2018-05-02] MEDS: HYDROCODONE/APAP 5/325MG 1 EACH TABLET PO ONE (12:14)
== END 2018-05-02 13:35 | disposition home or self-care (01) ==
LOC: ER 11:56
DX: S62.397A Other fracture of fifth metacarpal bone, left hand, initial encounter for closed fracture (principal); S80.02XA Contusion of left knee, initial encounter; G89.29 Other chronic pain; F31.9 Bipolar disorder, unspecified; E11.9 Type 2 diabetes mellitus without complications; F17.200 Nicotine dependence, unspecified, uncomplicated; Z95.0 Presence of cardiac pacemaker; Z88.6 Allergy status to analgesic agent; Z88.8 Allergy status to other drugs, medicaments and biological substances; W18.30XA Fall on same level, unspecified, initial encounter; Y93.01 Activity, walking, marching and hiking; Y92.89 Other specified places as the place of occurrence of the external cause; Y99.8 Other external cause status
CPT/HCPCS: 73130-TC; 73564-TC; 73590-TC; A4606; Z7610

== ENCOUNTER 2018-05-18 17:05 | Inpatient (IN) | payer MEDICARE, MEDICAID ==
[~2018-05-18] VITALS: Ht 160 cm; Wt 55.8 kg
--- NOTE | 2018-05-18 17:15 | NUR ---
AAOX3, CAME TO ER C/O "IM SUICIDAL PLANNING TO OD ON MY SEROQUEL". RR IS EVEN AND UNLABORED WITH NAD NOTED. SKIN IS WARM AND DRY. SI PRECAUTION IS IN PLACE. AWAITING MD FOR EVAL.
--- NOTE | 2018-05-18 17:45 | NUR ---
URINE OBTAINED SENT TO THE LAB.
[2018-05-18 18:00] LABS: BASOPHILS # (AUTO) 0.1 /CMM (0.0-0.2); BASOPHILS % (AUTO) 0.9 % (0.0-2.0); EOSINOPHILS % (AUTO) 4.4 % (0.0-6.0); HEMATOCRIT 39 % (33-45); HEMOGLOBIN 13.5 g/dL (11.5-14.8); MEAN CORPUSCULAR HEMOGLOBIN 32 PG (26.0-33.0); MEAN CORPUSCULAR HGB CONC 35 g/dl (31.0-36.0); MEAN CORPUSCULAR VOLUME 93 fL (82-100); MONOCYTES # (AUTO) 0.5 /CMM (0.1-1.30); MONOCYTES % (AUTO) 7.2 % (2.0-12.0); NEUTROPHILS # (AUTO) 4.4 /CMM (1.8-8.9); NEUTROPHILS % (AUTO) 59.5 % (43.0-81.0); PLATELET COUNT (AUTO) 243 /CMM (150-450); RDW COEFFICIENT OF VARIATION 12.7 (11.5-15.0); RED BLOOD CELL COUNT(AUTO) 4.23 MIL/uL (4.0-5.2); WHITE BLOOD COUNT (AUTO) 7.3 K/uL (4.3-11.0)
[2018-05-18 18:05] LABS: APPEARANCE,URINE Slightly Cloudy (CLEAR); BILIRUBIN,URINE SMALL (NEGATIVE); BLOOD, URINE Negative Ery/uL (NEGATIVE); COLOR,URINE Yellow (YELLOW); KETONES,URINE Negative (NEGATIVE); LEUKOCYTE ESTERASE ,URINE Negative (NEGATIVE); NITRITE, URINE Negative (NEGATIVE); PH,URINE 5.5 (5.0-8.0); PROTEIN,URINE Trace mg/dl (NEGATIVE); UGLUCOSE Negative (NEGATIVE); UROBILINOGEN,URINE 0.2 EU/dL (0.2)
[2018-05-18] MEDS ORDERED: QUET400T PO (18:15)
[2018-05-18] MEDS ORDERED: LORA-259 PO (18:15)
[2018-05-18] MEDS ORDERED: ALBU6.7H IH (18:15)
[2018-05-18] MEDS ORDERED: LIPA1CAP28 PO (18:15)
[2018-05-18] MEDS ORDERED: ARIP20TA4 PO (18:15)
[2018-05-18 18:16] LABS: ACETAMINOPHEN 7 ug/ml (10-30); ALANINE AMINOTRANSFERASE 16 U/L (12-78); ALBUMIN 3.5 g/dL (3.4-5.0); ALCOHOL, BLOOD < 3 mg/dL (0-0); ALKALINE PHOSPHATASE 118 U/L (46-116); ASPARTATE AMINOTRANSFERASE 12 U/L (15-37); BILIRUBIN,DIRECT 0.1 mg/dL (0.0-0.2); BILIRUBIN,TOTAL 0.1 mg/dL (0.2-1.0); CALCIUM, SERUM 8.7 mg/dL (8.5-10.1); CARBON DIOXIDE 30 mmol/L (21-32); CHLORIDE 105 mmol/L (98-107); CREATININE 0.8 mg/dL (0.6-1.3); GLUCOSE 76 mg/dL (74-106); POTASSIUM 3.9 mmol/L (3.5-5.1); SODIUM SERUM 140 mmol/L (136-145); TOTAL PROTEIN, SERUM 7.2 g/dL (6.4-8.2); UREA NITROGEN, BLOOD 14 mg/dL (7-18)
--- NOTE | 2018-05-18 18:16 | NUR ---
CALLED , TRANSFERRED CALL TO MELI HOLLIS)
[2018-05-18] MEDS ORDERED: HYOS0.1273 PO (18:17)
[2018-05-18 18:18] LABS: SALICYLATE 1.4 mg/dL (2.8-20.0)
[2018-05-18 18:22] LABS: BACTERIA,URINE Rare /HPF (None Seen); RBC,URINE NONE SEEN /HPF (0-2); SQUAMOUS EPITHELIAL CELL,UR Few /HPF (None Seen); WBC,URINE NONE SEEN /HPF (0-3)
--- NOTE | 2018-05-18 18:25 | NUR ---
CALLED [facility] FOR PSYCH EVAL, ETA 1 HOUR.
--- NOTE | 2018-05-18 19:25 | NUR ---
REPORT GIVEN TO CHACE PADILLA FOR ABDOUL.
--- NOTE | 2018-05-18 19:27 | NUR ---
[facility] AT BESIDE TO EVAL PT.
--- NOTE | 2018-05-18 19:46 | NUR ---
GPS 217, ADMITTING
--- NOTE | 2018-05-18 20:02 | NUR ---
REPORT CALLED TO GPS CHACE STYLES. WILL TRANSPORT PT TO ROOM 217.
--- NOTE | 2018-05-18 20:15 | NUR ---
Admitted a 57 y/o female from [facility] ER, on 5150 hold as DTS, based on hold patient is hyperverbal, disorganized, suicidal with a plan to OD on seroquel. Patient admitting Dx. Depression and medical diagnosis of left arm fracture, chronic pain syndrome, narcotic dependency, adrenal insufficiency. Patient transported safely via wheelchair of [facility] ER staff. Upon face to face evaluation, patient appeared alert and oriented x 3-4, anxious, disorganized, hyperverbal, cooperative, patient admitted si with a plan to od on seroquel, denies hi, per patient she experience visual hallucination after taking seroquel, seeing spirits aura with eyes that glow. Patient has no sob, no acute distress, breathing even and unlabored, c/o of pain on right rib 01/13, warm compress and tylenol 650mg po given as ordered, patient also c/o inability to sleep, Restoril 7.5mg po given as ordered, patient is ambulatory and steady gait, patient signed paper works, body check and pictures done, belongings inspected for contraband checking, notified Dr. Espinoza and Dr. Esparza of the admission and med recon. Unable to contact daughter d/t daughter is in [place], per patient, daughter is aware of the admission and she spoke to the ER doctor. Kept clean, dry and comfortable. All needs attended and met. Will continue to monitor [id number]
[2018-05-18] MEDS ORDERED: MAGNESIUM HYDROXIDE 30 ML UDC PO PRN (20:30)
[2018-05-18] MEDS ORDERED: HYDROCORTISONE 10 MG TABLET PO SCH (23:00)
[2018-05-19] MEDS: ACETAMINOPHEN 325 MG TABLET PO PRN ×2 (00:16→10:09)
[2018-05-19] MEDS: TEMAZEPAM 7.5 MG CAPSULE PO PRN (00:16)
[2018-05-19] MEDS: clonazePAM 0.5 MG TABLET PO PRN ×2 (05:27→10:09)
[2018-05-19 08:00] VITALS: BP 105/70
[2018-05-19 08:09] LABS: ALBUMIN 3.3 g/dL (3.4-5.0); BILIRUBIN,TOTAL 0.3 mg/dL (0.2-1.0); CALCIUM, SERUM 8.5 mg/dL (8.5-10.1); CREATININE 0.7 mg/dL (0.6-1.3); POTASSIUM 4.5 mmol/L (3.5-5.1)
[2018-05-19] MEDS ORDERED: HYDROCORTISONE 10 MG TABLET PO SCH (08:53)
[2018-05-19] MEDS: HYDROCORTISONE 20 MG TABLET PO SCH (08:57)
[2018-05-19] MEDS: PANTOPRAZOLE 40 MG TABLET.DR PO SCH (08:57)
[2018-05-19] MEDS: DOCUSATE SODIUM 100 MG CAPSULE PO SCH (08:58)
[2018-05-19] MEDS ORDERED: FLUTICASONE/SALMETEROL DISKUS IH SCH (09:00)
[2018-05-19 10:05] LABS: HEMATOCRIT 42 % (33-45); HEMOGLOBIN 13.9 g/dL (11.5-14.8); MEAN CORPUSCULAR HEMOGLOBIN 31 PG (26.0-33.0); MEAN CORPUSCULAR HGB CONC 33 g/dl (31.0-36.0); MEAN CORPUSCULAR VOLUME 94 fL (82-100); RED BLOOD CELL COUNT(AUTO) 4.43 MIL/uL (4.0-5.2); WHITE BLOOD COUNT (AUTO) 5.3 K/uL (4.3-11.0)
[2018-05-19 10:06] LABS: BASOPHILS % (AUTO) 0.9 % (0.0-2.0); EOSINOPHILS % (AUTO) 4.3 % (0.0-6.0); LYMPHOCYTES # (AUTO) 1.3 /CMM (0.8-4.8); LYMPHOCYTES % (AUTO) 24.5 % (20.0-44.0); MONOCYTES # (AUTO) 0.3 /CMM (0.1-1.30); MONOCYTES % (AUTO) 6.4 % (2.0-12.0); NEUTROPHILS # (AUTO) 3.4 /CMM (1.8-8.9); NEUTROPHILS % (AUTO) 63.9 % (43.0-81.0); PLATELET COUNT (AUTO) 246 /CMM (150-450); RDW COEFFICIENT OF VARIATION 43.8 (11.5-15.0)
--- NOTE | 2018-05-19 10:09 | NUR ---
GPS RN NOTE: PATIENT FEELING ANXIOUS KLONOPIN 0.5 MG PO PRN GIVEN PER ORDER WILL CONTINUE MONITORING
[2018-05-19] MEDS: HYDROCORTISONE 5 MG TABLET PO SCH ×2 (12:17→16:15)
[2018-05-19] MEDS: LIPASE/PROTEASE/AMYLASE 1 EACH CAPSULE.DR PO SCH ×2 (12:17→17:36)
[2018-05-19] MEDS: FLUTICASONE/VILANTEROL 1 EACH BLST.W.DEV IH SCH (12:18)
[2018-05-19] MEDS ORDERED: HYDROCORTISONE 5 MG TABLET PO SCH (12:30)
--- NOTE | 2018-05-19 13:11 | NUR ---
Dr. Hernández came and examined pt. and ordered Percocet 5/325 mg q4hrs prn for pain and was informed that pt. is allergy on Codeine and said ok to give.
[2018-05-19] MEDS: oxyCODONE/APAP (5/325 MG) 1 UDTAB TABLET PO PRN ×3 (13:30→21:54)
[2018-05-19] MEDS ORDERED: ALBUTEROL FS 2.5 MG/0.5 ML VIAL.NEB NEB PRN (13:30)
[2018-05-19] MEDS: QUETIAPINE FUMARATE 25 MG TABLET PO SCH ×2 (13:49→16:15)
[2018-05-19] MEDS: ARIPIPRAZOLE 5 MG TABLET PO SCH ×2 (13:49→16:15)
--- NOTE | 2018-05-19 14:07 | NUR ---
GPS RN NOTE: PT COMPLAINING OF NAUSEA T.O. ORDER DR PASTORA TAMAN 4 MG PO Q 8 HR PRN. ORDER PLACED AND CARED OUT.
[2018-05-19] MEDS ORDERED: ONDANSETRON HCL 4 MG/5 ML SOLUTION PO PRN (14:30)
[2018-05-19] MEDS: ONDANSETRON 4 MG TAB.RAPDIS PO PRN (16:22)
[2018-05-19 16:41] VITALS: BP 105/70
--- NOTE | 2018-05-19 17:37 | NUR ---
GPS RN NOTE: PATIENT COMPLAINING OF RIGHT WRIST PAIN 06/15 PERCOCET 5/325 MG PO PRN Q4 HR GIVEN WILL CONTINUE MONITORING
--- NOTE | 2018-05-19 19:30 | NUR ---
GPSRN RESTING QUIETLY, NO NEEDS MADE. COOPERATIVE, CALM. DENIES ANY DISCOMFORTS. SAFETY PRECAUTIONS EMPHASIZED APPEARS TO UNDERSTAND. CLOSELY WATCHED.
[2018-05-19 20:00] VITALS: BP 116/72
[2018-05-19] MEDS ORDERED: LamoTRIgine 100 MG TABLET ONE (21:32)
[2018-05-19] MEDS: QUETIAPINE FUMARATE 100 MG TABLET PO SCH (21:53)
[2018-05-19] MEDS ORDERED: LamoTRIgine 25 MG TABLET ONE (22:26)
--- NOTE | 2018-05-19 22:30 | NUR ---
GPS DUE MEDS ADMINISTERED, WENT BACK TO SLEEP. CLOSELY WATCHED
[2018-05-19] MEDS: LamoTRIgine 25 MG TABLET PO SCH (22:31)
[2018-05-20] MEDS: oxyCODONE/APAP (5/325 MG) 1 UDTAB TABLET PO PRN ×3 (04:39→14:21)
--- NOTE | 2018-05-20 06:30 | NUR ---
GPSRN REQUESTED FOR KLNOPIN, ADMINISTERED, . COOPERATIVE, MED COMPLIANT. STATED HAD GOOD SLEEP, AND AWARE OF HER MED ADJUSTMENT BY MD. ALL NEEDS ATTENDED.
[2018-05-20] MEDS: clonazePAM 0.5 MG TABLET PO PRN ×2 (06:58→11:56)
[2018-05-20 08:00] VITALS: BP 112/68
[2018-05-20] MEDS: ARIPIPRAZOLE 5 MG TABLET PO SCH ×3 (08:39→16:33)
[2018-05-20] MEDS: LIPASE/PROTEASE/AMYLASE 1 EACH CAPSULE.DR PO SCH ×3 (08:39→17:47)
[2018-05-20] MEDS: ONDANSETRON 4 MG TAB.RAPDIS PO PRN (08:39)
[2018-05-20] MEDS: QUETIAPINE FUMARATE 25 MG TABLET PO SCH ×3 (08:39→16:33)
[2018-05-20] MEDS: DOCUSATE SODIUM 100 MG CAPSULE PO SCH (08:39)
[2018-05-20] MEDS: PANTOPRAZOLE 40 MG TABLET.DR PO SCH (08:40)
[2018-05-20] MEDS: HYDROCORTISONE 20 MG TABLET PO SCH (08:40)
--- NOTE | 2018-05-20 09:10 | NUR ---
4. Solve the following equation. [Show All Steps] [Hide All Steps] Hide Step 1 There really isnt all that much to this problem. All we need to do is use the formula for less than inequalities we discussed in the notes for this section. Doing that gives, GPS/RN PATIENT REPORTS 8/10 PAIN IN L ARM, ADMINISTERED PERCOCET 5/325 PER PATIENT REQUEST. WILL CONTINUE TO MONITOR. Addendum: 05/20/18 at 1541 by GAVIN TRAMMELL RN DISREGARD NOTE
--- NOTE | 2018-05-20 09:10 | NUR ---
GPS/RN PATIENT REPORTS 8/10 PAIN IN L ARM, ADMINISTERED PERCOCET 5/325 PER PATIENT REQUEST. WILL CONTINUE TO MONITOR.
[2018-05-20] MEDS: FLUTICASONE/VILANTEROL 1 EACH BLST.W.DEV IH SCH (09:40)
[2018-05-20] MEDS: HYDROCORTISONE 5 MG TABLET PO SCH ×2 (11:56→16:33)
[2018-05-20] MEDS: MAG HYDROX/AL HYDROX/SIMETH 30 ML UDC PO PRN (14:21)
--- NOTE | 2018-05-20 15:24 | NUR ---
GPS/RN PATIENT REPORTS 8/10 PAIN IN L ARM, ADMINISTERED PERCOCET 5/325 PER PATIENT REQUEST. WILL CONTINUE TO MONITOR.
[2018-05-20 16:00] VITALS: BP 103/66
[2018-05-20 20:10] VITALS: BP 130/76
[2018-05-20] MEDS: QUETIAPINE FUMARATE 100 MG TABLET PO SCH (21:40)
[2018-05-20] MEDS: LamoTRIgine 25 MG TABLET PO SCH (21:41)
[2018-05-21] MEDS: oxyCODONE/APAP (5/325 MG) 1 UDTAB TABLET PO PRN ×4 (02:10→21:26)
--- NOTE | 2018-05-21 02:12 | NUR ---
GPS RN NOTE, PATIENT HAS A COMPLAINT OF LEFT WRIST PAIN AT 8 OUT 10 ON THE PAIN SCALE AND IS REQUESTING PERCOCET AT THIS TIME. PATIENT VITAL SIGNS ARE STABLE. GAVE PERCOCET 5/325 1 UD TAB PO Q4HR PRN ORDERED. WILL REASSESS PAIN AND I WILL CONTINUE TO MONITOR THIS PATIENT.
[2018-05-21] MEDS: clonazePAM 0.5 MG TABLET PO PRN ×2 (05:18→11:29)
[2018-05-21] MEDS: HYDROCORTISONE 20 MG TABLET PO SCH (08:28)
--- NOTE | 2018-05-21 08:28 | NUR ---
RN NOTES ADMINISTERED PERCOCET 5/325 MG PO PRN FOR GENERALIZED PAIN 05/15 PER PATIENT REQUEST, V/S TAKEN BP-101/69, P-73, CONTINUED MONITORING. ENCOURAGED TO INCREASE FLUID INTAKE.
[2018-05-21] MEDS: QUETIAPINE FUMARATE 25 MG TABLET PO SCH ×3 (08:29→17:43)
[2018-05-21] MEDS: DOCUSATE SODIUM 100 MG CAPSULE PO SCH (08:29)
[2018-05-21] MEDS: PANTOPRAZOLE 40 MG TABLET.DR PO SCH (08:29)
[2018-05-21] MEDS: ARIPIPRAZOLE 5 MG TABLET PO SCH ×3 (08:29→17:43)
[2018-05-21] MEDS: LIPASE/PROTEASE/AMYLASE 1 EACH CAPSULE.DR PO SCH ×3 (08:29→17:43)
[2018-05-21] MEDS: FLUTICASONE/VILANTEROL 1 EACH BLST.W.DEV IH SCH (08:33)
[2018-05-21 08:53] VITALS: BP 101/69
[2018-05-21] MEDS: ONDANSETRON 4 MG TAB.RAPDIS PO PRN (11:29)
--- NOTE | 2018-05-21 11:29 | NUR ---
RN NOTES PATIENT ANXIOUS, IRRITABLE ADMINISTERED KLONOPIN 0. 5 MG PO PRN AND ZOFRAN 4 MG PO PRN FOR NAUSEA, PER PATIENT REQUEST, V/S TAKEN BP 105/67, P-79, CONTINUED MONITORING.
[2018-05-21] MEDS: HYDROCORTISONE 5 MG TABLET PO SCH ×2 (13:57→15:03)
--- NOTE | 2018-05-21 14:04 | NUR ---
Initial Discharge Plan: Pt is currently homeless and stated that after her court case, her daughter, Shanae Kennedy ([phone]), will be flying her to [place] to stay with her. Per pt, she would like to go to a [place] [facility] facility for the time being and then maybe even a board and care after that. SW will work with the pt and the MD regarding appropriate discharge plans. SW will form a safe and proper discharge.
--- NOTE | 2018-05-21 15:04 | NUR ---
RN NOTES ADMINISTERED PERCOCET 5/325 MG PO PRN FOR GENERALIZED PAIN 05/15 PER PATIENT REQUEST. V/S TAKEN STABLE, BP-105/67, P-76, CONTINUED MONITORING.
[2018-05-21 16:00] VITALS: BP 100/61
--- NOTE | 2018-05-21 19:20 | NUR ---
RN NOTE RECEIVED PT IN BED, ASLEEP, EASILY AROUSABLE, IN NO ACUTE DISTRESS, NO SOB, BREATHING EVEN AND UNLABORED, DENIES SI AT THIS TIME. IN NO ACUTE DISTRESS. ALL PATIENT'S NEEDS ATTENDED TO. WILL CONTINUE TO MONITOR.
[2018-05-21 19:54] VITALS: BP 104/70
--- NOTE | 2018-05-21 21:26 | NUR ---
RN NOTES PATIENT VERBALIZED PAIN LEVEL OF 8/10, PERCOCET ADMINISTERED ORDERED. WILL CONTINUE TO MONITOR PT.
[2018-05-21] MEDS: LamoTRIgine 25 MG TABLET PO SCH (21:27)
[2018-05-21] MEDS: QUETIAPINE FUMARATE 100 MG TABLET PO SCH (22:15)
[2018-05-22] MEDS: clonazePAM 0.5 MG TABLET PO PRN ×2 (00:55→09:08)
--- NOTE | 2018-05-22 00:55 | NUR ---
RN NOTES PATIENT REQUESTED FOR KLONOPIN, NOTED PATIENT TO BE AGITATED. ADMINISTERED KLONOPIN ORDERED. WILL CONTINUE TO MONITOR PT.
[2018-05-22] MEDS: oxyCODONE/APAP (5/325 MG) 1 UDTAB TABLET PO PRN ×4 (05:12→20:07)
--- NOTE | 2018-05-22 05:12 | NUR ---
RN NOTE PATIENT VERBALIZED PAIN LEVEL 8/10, ADMINISTERED PERCOCET ORDERED. WILL CONTINUE TO MONITOR PT.
[2018-05-22] MEDS: ONDANSETRON 4 MG TAB.RAPDIS PO PRN ×3 (07:08→21:57)
[2018-05-22 08:00] VITALS: BP 100/70
[2018-05-22] MEDS: DOCUSATE SODIUM 100 MG CAPSULE PO SCH (08:24)
[2018-05-22] MEDS: HYDROCORTISONE 20 MG TABLET PO SCH (08:24)
[2018-05-22] MEDS: PANTOPRAZOLE 40 MG TABLET.DR PO SCH (08:24)
[2018-05-22] MEDS: QUETIAPINE FUMARATE 25 MG TABLET PO SCH ×3 (08:24→16:00)
[2018-05-22] MEDS: LIPASE/PROTEASE/AMYLASE 1 EACH CAPSULE.DR PO SCH ×3 (08:24→17:39)
[2018-05-22] MEDS: FLUTICASONE/VILANTEROL 1 EACH BLST.W.DEV IH SCH (08:24)
--- NOTE | 2018-05-22 09:00 | NUR ---
GPS/RN PATIENT IS EXTREMELY ANXIOUS, RESTLESS, EPISODES OF CRYING, ADMINISTERED KLONOPIN 0.5 MG, WILL CONTINUE TO MONITOR.
[2018-05-22] MEDS: ARIPIPRAZOLE 5 MG TABLET PO SCH ×3 (09:42→17:39)
--- NOTE | 2018-05-22 11:17 | NUR ---
GPS/RN PATIENT REPORTS 8/10 PAIN IN L ARM, ADMINISTERED PERCOCET 5/325 PER PATIENT REQUEST. WILL CONTINUE TO MONITOR.
[2018-05-22] MEDS: HYDROCORTISONE 5 MG TABLET PO SCH ×2 (12:57→16:00)
--- NOTE | 2018-05-22 15:59 | NUR ---
GPS/RN PATIENT REPORTS 07/16 GENERALIZED , ADMINISTERED PERCOCET 5/325 PER PATIENT REQUEST. WILL CONTINUE TO MONITOR.
[2018-05-22 16:15] VITALS: BP 116/69
[2018-05-22 20:54] VITALS: BP 105/71
[2018-05-22] MEDS: LamoTRIgine 25 MG TABLET PO SCH (21:35)
[2018-05-22] MEDS: QUETIAPINE FUMARATE 100 MG TABLET PO SCH (22:00)
--- NOTE | 2018-05-22 22:45 | NUR ---
GPS RN NOTE: SEROQUEL 400MG HELD D/T LOW BP 95/56 P67 R 20 AND PATIENT COMPLAINED OF FEELING NAUSEOUS, ZOFRAN PO GIVEN ORDERED. OFFERED FLUIDS PO TOLERATED, WILL CONTINUE TO MONITOR Q15MNS FOR SAFETY
--- NOTE | 2018-05-22 23:22 | NUR ---
GPS RN NOTE: PATIENT C/O PAIN IN THE STOMACH PAIN, PER PATIENT SHE HAS ACUTE PANCREATITIS, SHE HAD A SYMPTOMS OF THIS BEFORE. NOTIFIED DR. GUILLORY AND RECEIVED AN ORDER OF NPO AT MIDNIGHT AND LABS IN AM NOTED AND CARRIED OUT. NOTIFIED PATIENT AND AGREEABLE TO PLAN OF CARE. WILL CONTINUE TO MONITOR [id number] FOR SAFETY
[2018-05-23] MEDS: oxyCODONE/APAP (5/325 MG) 1 UDTAB TABLET PO PRN ×4 (06:40→21:49)
[2018-05-23 07:25] LABS: BASOPHILS % (AUTO) 0.7 % (0.0-2.0); EOSINOPHILS % (AUTO) 3.7 % (0.0-6.0); HEMATOCRIT 39 % (33-45); HEMOGLOBIN 13.5 g/dL (11.5-14.8); LYMPHOCYTES # (AUTO) 1.9 /CMM (0.8-4.8); LYMPHOCYTES % (AUTO) 30.3 % (20.0-44.0); MEAN CORPUSCULAR HEMOGLOBIN 32 PG (26.0-33.0); MEAN CORPUSCULAR HGB CONC 35 g/dl (31.0-36.0); MEAN CORPUSCULAR VOLUME 92 fL (82-100); MONOCYTES # (AUTO) 0.6 /CMM (0.1-1.30); MONOCYTES % (AUTO) 9.6 % (2.0-12.0); NEUTROPHILS # (AUTO) 3.7 /CMM (1.8-8.9); NEUTROPHILS % (AUTO) 55.7 % (43.0-81.0); PLATELET COUNT (AUTO) 236 /CMM (150-450); RDW COEFFICIENT OF VARIATION 12.1 (11.5-15.0); RED BLOOD CELL COUNT(AUTO) 4.28 MIL/uL (4.0-5.2); WHITE BLOOD COUNT (AUTO) 6.4 K/uL (4.3-11.0)
[2018-05-23 08:00] VITALS: BP 110/81
[2018-05-23 08:18] LABS: CALCIUM, SERUM 8.5 mg/dL (8.5-10.1); CREATININE 0.7 mg/dL (0.6-1.3); POTASSIUM 4.4 mmol/L (3.5-5.1)
[2018-05-23] MEDS: LIPASE/PROTEASE/AMYLASE 1 EACH CAPSULE.DR PO SCH ×3 (08:27→17:14)
[2018-05-23] MEDS: FLUTICASONE/VILANTEROL 1 EACH BLST.W.DEV IH SCH (08:27)
[2018-05-23] MEDS: DOCUSATE SODIUM 100 MG CAPSULE PO SCH (08:27)
[2018-05-23] MEDS: ARIPIPRAZOLE 5 MG TABLET PO SCH ×3 (08:27→17:13)
[2018-05-23] MEDS: clonazePAM 0.5 MG TABLET PO PRN ×2 (08:27→14:03)
[2018-05-23] MEDS: QUETIAPINE FUMARATE 25 MG TABLET PO SCH ×3 (08:27→17:13)
[2018-05-23] MEDS: PANTOPRAZOLE 40 MG TABLET.DR PO SCH (08:27)
[2018-05-23] MEDS: HYDROCORTISONE 20 MG TABLET PO SCH (08:27)
[2018-05-23] MEDS: ONDANSETRON 4 MG TAB.RAPDIS PO PRN (08:51)
[2018-05-23] MEDS: HYDROCORTISONE 5 MG TABLET PO SCH ×2 (11:47→15:52)
[2018-05-23] MEDS: MAG HYDROX/AL HYDROX/SIMETH 30 ML UDC PO PRN (12:03)
[2018-05-23 16:00] VITALS: BP 154/92
[2018-05-23 21:43] VITALS: BP 122/67
[2018-05-23] MEDS: QUETIAPINE FUMARATE 100 MG TABLET PO SCH (21:49)
--- NOTE | 2018-05-23 21:49 | NUR ---
GPS NOTES C/O "CAN I GET MY PERCOCET, I AM IN PAIN". PERCOCET 5/325 MG PO GIVEN ORDERED. WILL RE-EVALUATE AND CONTINUE TO MONITOR FOR SAFETY.
[2018-05-23] MEDS: LamoTRIgine 25 MG TABLET PO SCH (21:50)
[2018-05-23] MEDS: TEMAZEPAM 7.5 MG CAPSULE PO PRN (23:52)
--- NOTE | 2018-05-23 23:52 | NUR ---
GPS NOTES C/O " UNABLE TO SLEEP", RESTORIL 7.5 MG PO GIVEN ORDERED. WILL REEVALUATE AND CONTINUE TO MONITOR FOR SAFETY.
[2018-05-24] MEDS: clonazePAM 0.5 MG TABLET PO PRN ×2 (01:15→12:38)
--- NOTE | 2018-05-24 05:13 | NUR ---
GPS NOTES C/O ' ANXIETY ' KLONOPIN 0.5 MG PO GIVEN ORDERED. WILL CONTINUE TO MONITOR FOR SAFETY.
[2018-05-24] MEDS: oxyCODONE/APAP (5/325 MG) 1 UDTAB TABLET PO PRN ×4 (05:31→21:57)
--- NOTE | 2018-05-24 05:32 | NUR ---
GPS NOTES C/O "CAN I GET MY PERCOCET". PERCOCET 5/325 MG PO GIVEN ORDERED. WILL RE-EVALUATE AND CONTINUE TO MONITOR FOR SAFETY.
[2018-05-24 08:14] VITALS: BP 99/62
[2018-05-24] MEDS: QUETIAPINE FUMARATE 25 MG TABLET PO SCH ×3 (08:20→16:38)
[2018-05-24] MEDS: LIPASE/PROTEASE/AMYLASE 1 EACH CAPSULE.DR PO SCH ×3 (08:20→17:23)
[2018-05-24] MEDS: DOCUSATE SODIUM 100 MG CAPSULE PO SCH (08:20)
[2018-05-24] MEDS: ARIPIPRAZOLE 5 MG TABLET PO SCH ×3 (08:20→16:38)
[2018-05-24] MEDS: HYDROCORTISONE 20 MG TABLET PO SCH (08:20)
[2018-05-24] MEDS: PANTOPRAZOLE 40 MG TABLET.DR PO SCH (08:20)
[2018-05-24] MEDS: FLUTICASONE/VILANTEROL 1 EACH BLST.W.DEV IH SCH (08:22)
[2018-05-24] MEDS: HYDROCORTISONE 5 MG TABLET PO SCH ×2 (12:39→15:41)
[2018-05-24 16:00] VITALS: BP 112/66
[2018-05-24] MEDS: ONDANSETRON 4 MG TAB.RAPDIS PO PRN (18:25)
--- NOTE | 2018-05-24 19:44 | NUR ---
GPS RN NOTE: RECEIVED PATIENT IN BED LYING DOWN, AWAKE. STATED " MY NAUSEA WENT AWAY, I PROMISE I WILL NOT BE MEAN TO ANYONE TONIGHT". SAD AFFECT, ANXIOUS MOOD, DENIES SI, HI, PAIN, AND NO APPARENT DISTRESS. BED IN LOW POSITION, SIDE RAILS UP X 2 FOR SAFETY. WILL CONTINUE TO MONITOR Q 15 MINUTES FOR COMFORT AND SAFETY.
[2018-05-24] MEDS: MAG HYDROX/AL HYDROX/SIMETH 30 ML UDC PO PRN (19:52)
[2018-05-24 20:00] VITALS: BP 125/76
[2018-05-24] MEDS: QUETIAPINE FUMARATE 100 MG TABLET PO SCH (21:11)
[2018-05-24] MEDS: LamoTRIgine 25 MG TABLET PO SCH (21:12)
[2018-05-25] MEDS: oxyCODONE/APAP (5/325 MG) 1 UDTAB TABLET PO PRN ×4 (03:22→17:42)
[2018-05-25 08:00] VITALS: BP 104/70
[2018-05-25] MEDS: LIPASE/PROTEASE/AMYLASE 1 EACH CAPSULE.DR PO SCH ×3 (08:10→17:19)
[2018-05-25] MEDS: HYDROCORTISONE 20 MG TABLET PO SCH (08:10)
[2018-05-25] MEDS: DOCUSATE SODIUM 100 MG CAPSULE PO SCH (08:10)
[2018-05-25] MEDS: PANTOPRAZOLE 40 MG TABLET.DR PO SCH (08:10)
[2018-05-25] MEDS: ARIPIPRAZOLE 5 MG TABLET PO SCH ×3 (08:10→16:07)
[2018-05-25] MEDS: QUETIAPINE FUMARATE 25 MG TABLET PO SCH ×3 (08:11→16:07)
[2018-05-25] MEDS: FLUTICASONE/VILANTEROL 1 EACH BLST.W.DEV IH SCH (08:13)
[2018-05-25] MEDS: HYDROCORTISONE 5 MG TABLET PO SCH ×2 (12:15→16:07)
[2018-05-25 16:19] VITALS: BP 114/82
--- NOTE | 2018-05-25 17:42 | NUR ---
RN-CO: Patient c/o right ribs pain 8/10, Percocet given.
[2018-05-25 20:00] VITALS: BP_SYST 118; BP_SYST 145; BP_DIAS 66; BP_DIAS 75
[2018-05-25] MEDS: LamoTRIgine 25 MG TABLET PO SCH (21:36)
[2018-05-25] MEDS ORDERED: QUETIAPINE FUMARATE 100 MG TABLET ONE (22:32)
[2018-05-25] MEDS: QUETIAPINE FUMARATE 100 MG TABLET PO SCH (22:40)
[2018-05-25] MEDS: TEMAZEPAM 7.5 MG CAPSULE PO PRN (23:05)
[2018-05-26] MEDS: oxyCODONE/APAP (5/325 MG) 1 UDTAB TABLET PO PRN ×4 (02:39→20:46)
[2018-05-26] MEDS: clonazePAM 0.5 MG TABLET PO PRN ×2 (04:51→15:30)
[2018-05-26 08:00] VITALS: BP 108/59
[2018-05-26] MEDS: PANTOPRAZOLE 40 MG TABLET.DR PO SCH (08:54)
[2018-05-26] MEDS: DOCUSATE SODIUM 100 MG CAPSULE PO SCH (08:54)
[2018-05-26] MEDS: HYDROCORTISONE 20 MG TABLET PO SCH (08:54)
[2018-05-26] MEDS: LIPASE/PROTEASE/AMYLASE 1 EACH CAPSULE.DR PO SCH ×3 (08:54→17:14)
[2018-05-26] MEDS: QUETIAPINE FUMARATE 100 MG TABLET PO SCH ×2 (08:55→22:16)
[2018-05-26] MEDS: ARIPIPRAZOLE 5 MG TABLET PO SCH (08:55)
[2018-05-26] MEDS: FLUTICASONE/VILANTEROL 1 EACH BLST.W.DEV IH SCH (08:56)
[2018-05-26] MEDS: HYDROCORTISONE 5 MG TABLET PO SCH ×2 (12:50→15:31)
[2018-05-26 16:00] VITALS: BP 101/68
[2018-05-26 20:00] VITALS: BP 118/64
[2018-05-26] MEDS: LamoTRIgine 25 MG TABLET PO SCH (22:15)
[2018-05-26] MEDS: TEMAZEPAM 7.5 MG CAPSULE PO PRN (22:16)
[2018-05-27] MEDS: oxyCODONE/APAP (5/325 MG) 1 UDTAB TABLET PO PRN ×4 (03:00→19:29)
[2018-05-27 08:00] VITALS: BP 101/67
[2018-05-27] MEDS: DOCUSATE SODIUM 100 MG CAPSULE PO SCH (08:11)
[2018-05-27] MEDS: PANTOPRAZOLE 40 MG TABLET.DR PO SCH (08:11)
[2018-05-27] MEDS: HYDROCORTISONE 20 MG TABLET PO SCH (08:11)
[2018-05-27] MEDS: ARIPIPRAZOLE 5 MG TABLET PO SCH (08:11)
[2018-05-27] MEDS: FLUTICASONE/VILANTEROL 1 EACH BLST.W.DEV IH SCH (08:13)
[2018-05-27] MEDS: LIPASE/PROTEASE/AMYLASE 1 EACH CAPSULE.DR PO SCH ×3 (08:13→17:09)
--- NOTE | 2018-05-27 08:13 | NUR ---
[id number]: GAVE PERCOCET 5/325 MG PO DUE TO GENERALIZED PAIN 06/15 UPON PT REQUEST AND WILL CONTINUE TO MONITOR FOR EFFECTIVENESS OF MEDICATION
[2018-05-27] MEDS: QUETIAPINE FUMARATE 100 MG TABLET PO SCH ×2 (10:08→21:03)
--- NOTE | 2018-05-27 12:38 | NUR ---
PS-RN-NOTES: GAVE PERCOCET 5/325 MG PO DUE TO GENERALIZED PAIN 06/15 UPON PT REQUEST AND WILL CONTINUE TO MONITOR FOR EFFECTIVENESS OF MEDICATION
[2018-05-27] MEDS: HYDROCORTISONE 5 MG TABLET PO SCH ×2 (12:40→17:09)
[2018-05-27 15:55] VITALS: BP 99/68
[2018-05-27] MEDS: clonazePAM 0.5 MG TABLET PO PRN ×2 (17:09→21:16)
--- NOTE | 2018-05-27 17:09 | NUR ---
[id number]: GAVE KLONOPIN 0.5 MG PO DUE TO SEVERE ANXIETY UPON PT REQUEST AND WILL CONTINUE TO MONITOR FOR EFFECTIVENESS OF MEDICATION
--- NOTE | 2018-05-27 17:09 | NUR ---
[id number]: GAVE KLONOPIN 0.5 MG PO DUE TO SEVERE ANXIETY UPON PT REQUEST AND WILL CONTINUE TO MONITOR FOR EFFECTIVENESS OF MEDICATION Addendum: 05/27/18 at 1732 by TASH ANGELO RN WRONG ENTRY
--- NOTE | 2018-05-27 19:30 | NUR ---
C/O THROBBING ABDOMINAL PAIN, 8/10 ON PAIN SCALE, PERCOCET 5/325 MG TAB 1 PO GIVEN.
[2018-05-27 20:19] VITALS: BP 109/67
[2018-05-27] MEDS: LamoTRIgine 25 MG TABLET PO SCH (21:03)
[2018-05-27] MEDS: TEMAZEPAM 7.5 MG CAPSULE PO PRN (21:03)
--- NOTE | 2018-05-27 21:04 | NUR ---
TEMAZEPAM 7.5 MG CAP PO GIVEN PER PATIENT'S REQUEST
[2018-05-28] MEDS: oxyCODONE/APAP (5/325 MG) 1 UDTAB TABLET PO PRN ×2 (01:05→05:46)
--- NOTE | 2018-05-28 01:05 | NUR ---
C/O SAME ABDOMINAL PAIN, PERCOCET TAB 1 PO GIVEN.
--- NOTE | 2018-05-28 05:48 | NUR ---
GPS RN NOTE, PATIENT HAS A COMPLAINT OF CHRONIC ABDOMINAL PAIN AT 6 OUT 10 ON THE PAIN SCQALE AND IS REQUESTING PERCOCET AT THIS TIME. PATIENT VITAL SIGNS ARE STABLE. GAVE PERCOCET 5/325 1 UD TAB PO Q4HR PRN ORDERED. WILL REASSESS FOR PAIN AND I WILL CONTINUE TO MONITOR THIS PATIENT.
[2018-05-28 08:00] VITALS: BP 130/68
[2018-05-28] MEDS: LIPASE/PROTEASE/AMYLASE 1 EACH CAPSULE.DR PO SCH (08:05)
[2018-05-28] MEDS: PANTOPRAZOLE 40 MG TABLET.DR PO SCH (08:05)
[2018-05-28] MEDS: ARIPIPRAZOLE 5 MG TABLET PO SCH (08:05)
[2018-05-28] MEDS: QUETIAPINE FUMARATE 100 MG TABLET PO SCH (08:06)
[2018-05-28] MEDS: DOCUSATE SODIUM 100 MG CAPSULE PO SCH (08:06)
[2018-05-28] MEDS: HYDROCORTISONE 20 MG TABLET PO SCH (08:29)
[2018-05-28] MEDS: FLUTICASONE/VILANTEROL 1 EACH BLST.W.DEV IH SCH (08:30)
--- NOTE | 2018-05-28 11:15 | NUR ---
GPS/RN PATIENT CLEARED FOR DISCHARGE TO [facility],BY DR WILLETT AND CATARINA BOSCH. MEDICATIONS RECONCILED BY BOTH DR'S, EXIT CARE, AFTER CARE PLAN AND MEDICATIONS EXPLAINED TO PATIENT, VERBALIZED UNDERSTANDING. BELONGINGS AND VALUABLES RETURNED AND SIGNED FOR BY PATIENT. PATIENT DENIES SI/HI/AH UPON DISCHARGE, PSYCHIATRIC TREATMENT PLANS MET. PATIENT REFUSED D/D PHOTOS, REPORT GIVEN TO MIGUELITO AT FACILITY. LEFT UNIT CALM, COOPERATIVE, STABLE CONDITION ,NO DISTRESS NOTED WITH AMBULANCE TRANSPORT AT SIDE.
--- NOTE | 2018-05-28 12:25 | NUR ---
Pt was accepted to [facility].
--- NOTE | 2018-05-28 12:31 | NUR ---
Discharge Note: Pt was discharged to [facility] (SNF) located at [address] [place] [address]; ([phone]). Pt was transported via [facility] (Trip #[id number]) at 11AM. There is no family member involved to contact about this placement but the pt and the MD approved it. Upon discharge, the pts mood appeared to be euthymic and her affect was excited and anxious. Pt was provided with three substance use referrals and homeless services by the upon discharge. Pt denied having any homicidal or suicidal ideation as well as visual and auditory hallucinations. Pt will be under the care of psychiatrist, Dr. Joe Espinoza, located at [address], [place] [address]; ) and curb supervisor, Dr. Edgar Mays, located at [address], [place] [address], ). Referrals: [facility] [address] [place] [address] Tel. [facility] [address] [place] Provider Mental Health Treatment Tele-dermatology HIV Services Telemedicine Services [facility] [address] [place] [address] [facility] [address] [place] [address] Homeless Services: [facility] [address] [place], [place] [address] [facility] [address] [place], [place] [id number] [facility] [employer] [facility] and [facility] [address] [place] [address] [facility] [address] [place] [address]
== END 2018-05-28 14:17 | DRG 885 ==
LOC: ER 17:10 → GPS 19:58
PROVIDERS: ADMIT Psychiatry & Neurology Psychiatry; ATTEND Psychiatry & Neurology Psychiatry
DX: F25.0 Schizoaffective disorder, bipolar type (principal); K85.90 Acute pancreatitis without necrosis or infection, unspecified; R45.851 Suicidal ideations; E27.40 Unspecified adrenocortical insufficiency; E66.9 Obesity, unspecified; K21.9 Gastro-esophageal reflux disease without esophagitis; Z87.891 Personal history of nicotine dependence; Z98.84 Bariatric surgery status; Z95.0 Presence of cardiac pacemaker; Z91.14 Patient's other noncompliance with medication regimen; Z90.49 Acquired absence of other specified parts of digestive tract; Z79.899 Other long term (current) drug therapy; Z83.3 Family history of diabetes mellitus; Z90.710 Acquired absence of both cervix and uterus; Z59.0 Homelessness; Z88.5 Allergy status to narcotic agent; Z88.8 Allergy status to other drugs, medicaments and biological substances; Z79.51 Long term (current) use of inhaled steroids; G89.4 Chronic pain syndrome; M81.0 Age-related osteoporosis without current pathological fracture; M19.90 Unspecified osteoarthritis, unspecified site; J44.9 Chronic obstructive pulmonary disease, unspecified; I25.10 Atherosclerotic heart disease of native coronary artery without angina pectoris; Z96.659 Presence of unspecified artificial knee joint; E78.5 Hyperlipidemia, unspecified
CPT/HCPCS: 36415; 71045-TC; 80048-TC; 80053-TC; 80061-TC; 80076-TC; 80305; 81000-TC; 82150-TC; 83690-TC; 85025-TC; 87081-TC; 92611-TC; A4606; G0480; Q0162; Z7610

== ENCOUNTER 2018-06-18 10:01 | Inpatient (IN) | payer MEDICARE, MEDICAID ==
[~2018-06-18] VITALS: Ht 157.5 cm; Wt 54.4 kg
[~2018-06-18 10:01] MED LIST changes: +ALBU6.7H IH; +ARIP20TA4 PO; +HYOS0.1273 PO; +LIPA1CAP28 PO; +LORA-259 PO; -ONDA4TAB5 PO; +QUET400T PO; -TOLT1TAB2 PO
--- NOTE | 2018-06-18 10:05 | NUR ---
AAOX3, FLAQUITA FROM [facility] FOR ELEVATED WBC AND PNA. RR IS EVEN AND UNLABORED WITH NAD NOTED. SKIN IS WARM AND DRY. DR KELLY AT BS FOR EVAL.
[2018-06-18 10:49] LABS: BASOPHILS % (AUTO) 0.3 % (0.0-2.0); EOSINOPHILS % (AUTO) 1.1 % (0.0-6.0); HEMATOCRIT 37 % (33-45); HEMOGLOBIN 12.5 g/dL (11.5-14.8); LYMPHOCYTES # (AUTO) 0.8 /CMM (0.8-4.8); LYMPHOCYTES % (AUTO) 10.1 % (20.0-44.0); MEAN CORPUSCULAR HEMOGLOBIN 31 PG (26.0-33.0); MEAN CORPUSCULAR HGB CONC 34 g/dl (31.0-36.0); MEAN CORPUSCULAR VOLUME 92 fL (82-100); MONOCYTES # (AUTO) 0.6 /CMM (0.1-1.30); MONOCYTES % (AUTO) 7.3 % (2.0-12.0); NEUTROPHILS # (AUTO) 6.4 /CMM (1.8-8.9); NEUTROPHILS % (AUTO) 81.2 % (43.0-81.0); PLATELET COUNT (AUTO) 187 /CMM (150-450); RDW COEFFICIENT OF VARIATION 12.4 (11.5-15.0); RED BLOOD CELL COUNT(AUTO) 4.04 MIL/uL (4.0-5.2); WHITE BLOOD COUNT (AUTO) 7.9 K/uL (4.3-11.0)
[2018-06-18 11:02] LABS: CALCIUM, SERUM 8.4 mg/dL (8.5-10.1); CREATININE 0.6 mg/dL (0.6-1.3)
--- NOTE | 2018-06-18 11:06 | NUR ---
CALLED [facility] PAGED DR PINEDA
[2018-06-18] MEDS ORDERED: IPRA3AMP23 IH (11:29)
[2018-06-18] MEDS ORDERED: QUET50TA PO (11:29)
[2018-06-18] MEDS ORDERED: LIPA1CAP8 PO (11:29)
[2018-06-18] MEDS ORDERED: FLUT1BLS IH (11:29)
[2018-06-18] MEDS ORDERED: TEMA7.5C PO (11:29)
[2018-06-18] MEDS ORDERED: CLON0.5T PO (11:29)
[2018-06-18] MEDS ORDERED: ARIP5TAB20 PO (11:29)
[2018-06-18] MEDS ORDERED: PIPERACILLIN /TAZOBACTAM 3.375 G in IV D5W 50 ML IV ONE (11:30)
[2018-06-18] MEDS ORDERED: VANCOMYCIN 1 GM in IV D5W 250 ML IV ONE (11:30)
--- NOTE | 2018-06-18 11:43 | NUR ---
PT ADMIT TO ROOM 116-1
--- NOTE | 2018-06-18 12:34 | NUR ---
REPORT GIVEN TO CHACE LONG FOR ABDOUL MS 116-1
[2018-06-18 13:00] VITALS: BP 93/61
--- NOTE | 2018-06-18 13:00 | NUR ---
ORCHARD HAND NOTES: PT ADMITTED FROM ER DEPT WITH A DX OF ASPIRATION PNEUMONIA. PT IS ALERT, ORIENTED X4. VERBALLY RESPONSIVE, ABLE TO MAKE NEEDS KNOWN. HX OF GASTRIC SLEEVE, GASTRIC BYPASS, DM, LEFT ARM FRACTURE, BIPOLAR, SCHIZOAFFECTIVE, CHRONIC PAIN SYNDROME, NARCOTIC DEPENDENCY AND ADRENAL INSUFFICIENCY. PERTINENT ASSESSMENTS DONE. REDNESS/SCAR ON RIGHT UPPER CHEST NOTED, PICTURE TAKEN AND PLACED ON CHART. BELONGINGS LIST SIGNED AND PLACED ON CHART. IV ON RFA #20 INFILTRATED, REINSERTED NEW IV LINE ON LFA #22, INTACT AND PATENT. PT COMPLAINED OF BACK PAIN, PER MD OK TO GIVE PERCOCET 5-325MG PO Q6HR PRN. ON O2 2LPM NC, SATURATING WELL. NO SOB NOTED. ON TELE MONITOR SINUS RHYTHM HR 84BPM. KEPT CLEAN, DRY AND COMFORTABLE. SAFETY AND FALL PRECAUTIONS OBSERVED AND MAINTAINED. CALL LIGHT PLACED WITHIN REACH. WILL CONTINUE TO MONITOR PT.
[2018-06-18] MEDS ORDERED: oxyCODONE/APAP (5/325 MG) 1 UDTAB TABLET PO PRN (14:00)
[2018-06-18] MEDS ORDERED: MAGNESIUM HYDROXIDE 30 ML UDC PO PRN (14:00)
[2018-06-18] MEDS ORDERED: ACETAMINOPHEN 325 MG TABLET PO PRN (14:00)
[2018-06-18] MEDS ORDERED: Z GUARD REMEDY 2 OZ OINT TP PRN (14:00)
[2018-06-18] MEDS ORDERED: ZOLPIDEM TARTRATE 5 MG TABLET PO PRN (14:00)
[2018-06-18] MEDS ORDERED: MAG HYDROX/AL HYDROX/SIMETH 30 ML UDC PO PRN (14:00)
[2018-06-18] MEDS: ENOXAPARIN SODIUM 40 MG/0.4 ML DISP.SYRIN SQ SCH (15:16)
[2018-06-18] MEDS: IV 1/2NS 1000 ML 1,000 ML IV PRN (15:17)
[2018-06-18] MEDS: LEVOFLOXACIN 750 MG /D5W 150ML 750 MG in PREMIX 1 EA IV SCH (15:26)
[2018-06-18 16:00] VITALS: BP 98/69
[2018-06-18] MEDS: ONDANSETRON HCL/PF 4 MG/2 ML VIAL IVP PRN (16:41)
--- NOTE | 2018-06-18 18:44 | NUR ---
MANAGED CARE LIAISON NOTES: PT IN BED ALERT AND AWAKE. NO ACUTE DISTRESS NOTED. COMPLAINED OF GENERALIZED PAIN AND NAUSEA, PRN PERCOCET AND ZOFRAN GIVEN, VERBALIZATION OF RELIEF NOTED. NO SOB. IV ON LEFT FOREARM #22 INTACT AND PATENT WITH IVF 1/2 NS RUNNING AT 75ML/HR, INFUSING WELL. ASSISTED PT TO THE BATHROOM X3. CALL LIGHT PLACED WITHIN REACH. KEPT CLEAN, DRY AND COMFORTABLE. SAFETY AND FALL PRECAUTIONS OBSERVED AND MAINTAINED. WILL ENDORSE TO AIRFIELD MANAGER FOR CONTINUITY OF CARE.
[2018-06-18 20:00] VITALS: BP 92/53
--- NOTE | 2018-06-18 21:08 | NUR ---
RN NOTE PATIENT COMPLAINS OF GENERALIZED PAIN, REQUESTED TO CHANGE PAIN MEDICATION EVERY 4 HOURS INSTEAD OF EVERY 6 HOURS, NOTIFIED DR STEWART, PER MD ORDER OK TO GIVE PAIN MEDICATION EVERY 4 HOURS, ORDER WAS CHANGED AND CARRIED OUT
[2018-06-18] MEDS: oxyCODONE/APAP (5/325 MG) 1 UDTAB TABLET PO PRN (21:17)
[2018-06-19] VITALS (7 sets, daily range): BP systolic 87–116; BP diastolic 57–70
[2018-06-19] MEDS: oxyCODONE/APAP (5/325 MG) 1 UDTAB TABLET PO PRN ×5 (01:52→18:32)
[2018-06-19 06:33] LABS: BASOPHILS % (AUTO) 0.3 % (0.0-2.0); EOSINOPHILS % (AUTO) 2.9 % (0.0-6.0); HEMATOCRIT 37 % (33-45); HEMOGLOBIN 12.1 g/dL (11.5-14.8); LYMPHOCYTES % (AUTO) 20.3 % (20.0-44.0); MEAN CORPUSCULAR HEMOGLOBIN 31 PG (26.0-33.0); MEAN CORPUSCULAR HGB CONC 33 g/dl (31.0-36.0); MEAN CORPUSCULAR VOLUME 94 fL (82-100); MONOCYTES # (AUTO) 0.6 /CMM (0.1-1.30); MONOCYTES % (AUTO) 11.5 % (2.0-12.0); NEUTROPHILS # (AUTO) 3.2 /CMM (1.8-8.9); PLATELET COUNT (AUTO) 188 /CMM (150-450); RDW COEFFICIENT OF VARIATION 13.1 (11.5-15.0); RED BLOOD CELL COUNT(AUTO) 3.89 MIL/uL (4.0-5.2)
--- NOTE | 2018-06-19 06:48 | NUR ---
RN NOTE PATIENT RESTED WELL AT NIGHT, NO CHANGES NOTED, PAIN IS WELL CONTROLLED WITH PAIN MEDICATION, ALL SAFETY MEASURES TAKEN, WILL ENDORSE TO AM SHIFT TO CONTINUE CARE
[2018-06-19 06:51] LABS: ALBUMIN 2.8 g/dL (3.4-5.0); BILIRUBIN,TOTAL 0.2 mg/dL (0.2-1.0); CREATININE 0.5 mg/dL (0.6-1.3); PHOSPHORUS 3.3 mg/dL (2.5-4.9); POTASSIUM 3.9 mmol/L (3.5-5.1); TOTAL PROTEIN, SERUM 6.5 g/dL (6.4-8.2)
--- NOTE | 2018-06-19 11:31 | NUR ---
RN MS INITIAL NOTES RECEIVED REPORT AND PATIENT FROM PM NURSE. PT RESTING IN BED, NO ACUTE DISTRESS OR SHORT OF BREATHE, A&O X4 YI SPEAKING, ON PRINCIPAL SCIENTIST SINUS RHYTHM HEART RATE 69, KEFT FOREARM 22G IV INTACT AND PATENT RUNNING NS @ 75 ML/HR NO INFILTRATION NOTED, ALL SAFETY MEASURES INITIATED, ALL NEEDS MET, WILL CONTINUE TO MONITOR.
--- NOTE | 2018-06-19 11:35 | NUR ---
RN MS NOTES SPOKE WITH DR RICHARDS PAIN MANAGEMEBNT AND NEEDS TO ASSESS IF NEED MEDICATION OR INTERVENTIONS FOR PAIN.
[2018-06-19] MEDS ORDERED: TEMAZEPAM 7.5 MG CAPSULE PO PRN (12:00)
[2018-06-19] MEDS ORDERED: Medication Not On Formulary EA (Ipratropium/Albuterol Sulfate (Duoneb 2.5-0.5 Mg/3 Ml So IH PRN (12:00)
[2018-06-19] MEDS: HYDROCORTISONE 5 MG TABLET PO SCH ×2 (13:40→17:44)
[2018-06-19] MEDS: LIPASE/PROTEASE/AMYLASE 1 EACH CAPSULE.DR PO SCH ×2 (13:40→17:44)
[2018-06-19] MEDS: ONDANSETRON HCL/PF 4 MG/2 ML VIAL IVP PRN (13:43)
[2018-06-19] MEDS: ALBUTEROL FS 2.5 MG/3 ML VIAL.NEB NEB PRN (14:05)
[2018-06-19] MEDS: IPRATROPIUM NEB FS 0.5 MG/2.5 ML AMPUL.NEB NEB PRN (14:05)
[2018-06-19] MEDS ORDERED: PANTOPRAZOLE 40 MG VIAL IV SCH ×2 (14:30→16:00)
[2018-06-19] MEDS: LEVOFLOXACIN 750 MG /D5W 150ML 750 MG in PREMIX 1 EA IV SCH (14:35)
[2018-06-19] MEDS ORDERED: PANTOPRAZOLE 40 MG VIAL IV ONE (15:00)
[2018-06-19] MEDS ORDERED: diphenhydrAMINE HCL 25 MG CAPSULE PO ONE (17:30)
[2018-06-19] MEDS: PREGABALIN 25 MG CAPSULE PO SCH (17:45)
--- NOTE | 2018-06-19 18:22 | NUR ---
RN MS NOTES STOPPED LEVAQUIN IV SINCE PATIENT COMPLAINING OF ITCHY ARMS AND BODY AND COLD SWEATS, SPOKE WITH DR HERNANDEZ AND STATED OK STOP AND RECOMMENDED BENADRYL GAVE IT TO PT, PT STATES RELIEF.
--- NOTE | 2018-06-19 18:44 | NUR ---
RN MS ENDING NOTES PT STABLE WITH NO ACUTE CHANGES NOTED, ALL DUE MEDS GIVEN, ALL NEEDS MET, WILL ENDORSE TO PM NURSE FOR CONTINUITY OF CARE.
--- NOTE | 2018-06-19 18:55 | NUR ---
Patient currently resides at [facility] [phone]. She requires assistance with adl's . Patient want to return to SNF once discharge. Addendum: 06/19/18 at 1856 by USHA GAO RN Amended: Links added.
[2018-06-19] MEDS: ENOXAPARIN SODIUM 40 MG/0.4 ML DISP.SYRIN SQ SCH (20:26)
[2018-06-19] MEDS: LamoTRIgine 100 MG TABLET PO SCH (21:16)
[2018-06-19] MEDS: QUETIAPINE FUMARATE 100 MG TABLET PO SCH (21:17)
--- NOTE | 2018-06-19 21:26 | NUR ---
RN NOTE PATIENT HAS SEROQUIL 800MG SCHEDULED AT 2200, PATIENT REQUESTED ONLY 600MG, 2 PILLS WERE RETURNED
[2018-06-20] MEDS: oxyCODONE/APAP (5/325 MG) 1 UDTAB TABLET PO PRN ×6 (02:50→20:30)
[2018-06-20 04:00] VITALS: BP 95/62
[2018-06-20] MEDS: IV 1/2NS 1000 ML 1,000 ML IV PRN ×2 (04:11→21:24)
[2018-06-20] MEDS: IPRATROPIUM NEB FS 0.5 MG/2.5 ML AMPUL.NEB NEB PRN (05:45)
[2018-06-20] MEDS: ALBUTEROL FS 2.5 MG/3 ML VIAL.NEB NEB PRN (05:45)
[2018-06-20] MEDS: clonazePAM 0.5 MG TABLET PO PRN (06:34)
--- NOTE | 2018-06-20 07:20 | NUR ---
RN NOTE PATIENT REQUESTED BENADRYL FOR MILD ITCHING, NOTIFIED GENEVIEVE CHASE DNP, NEW ORDER OF BENADYL 25MG PO ONCE GIVEN
[2018-06-20 07:21] LABS: BASOPHILS % (AUTO) 0.4 % (0.0-2.0); EOSINOPHILS % (AUTO) 2.7 % (0.0-6.0); HEMATOCRIT 40 % (33-45); HEMOGLOBIN 13.2 g/dL (11.5-14.8); LYMPHOCYTES # (AUTO) 1.7 /CMM (0.8-4.8); LYMPHOCYTES % (AUTO) 42.7 % (20.0-44.0); MEAN CORPUSCULAR HEMOGLOBIN 31 PG (26.0-33.0); MEAN CORPUSCULAR HGB CONC 33 g/dl (31.0-36.0); MEAN CORPUSCULAR VOLUME 95 fL (82-100); MONOCYTES # (AUTO) 0.5 /CMM (0.1-1.30); MONOCYTES % (AUTO) 12.7 % (2.0-12.0); NEUTROPHILS # (AUTO) 1.7 /CMM (1.8-8.9); NEUTROPHILS % (AUTO) 41.5 % (43.0-81.0); PLATELET COUNT (AUTO) 189 /CMM (150-450); RED BLOOD CELL COUNT(AUTO) 4.21 MIL/uL (4.0-5.2); WHITE BLOOD COUNT (AUTO) 4.1 K/uL (4.3-11.0)
[2018-06-20] MEDS ORDERED: diphenhydrAMINE HCL ELIX 25 MG/10 ML UDC PO PRN (07:30)
--- NOTE | 2018-06-20 07:30 | NUR ---
RN MS NOTES PT IN BED, AWAKE, ALERT AND ORIENTED, PAIN REASSESSMENT DONE, STILL WITH COMPLAINT OF GENERALIZED PAIN, RESPIRATIONS NORMAL, NOT IN DISTRESS, IV FLUIDS INFUSING WELL, CALL LIGHT WITHIN REACH, NEEDS ATTENDED.
[2018-06-20 07:34] LABS: CALCIUM, SERUM 8.9 mg/dL (8.5-10.1); CREATININE 0.6 mg/dL (0.6-1.3)
[2018-06-20 08:00] VITALS: BP 99/67
[2018-06-20] MEDS: DOCUSATE SODIUM 100 MG CAPSULE PO SCH (08:11)
[2018-06-20] MEDS: LIPASE/PROTEASE/AMYLASE 1 EACH CAPSULE.DR PO SCH ×3 (08:11→17:26)
[2018-06-20] MEDS: PREGABALIN 25 MG CAPSULE PO SCH ×2 (08:11→17:25)
[2018-06-20] MEDS: ARIPIPRAZOLE 5 MG TABLET PO SCH (08:11)
[2018-06-20] MEDS: PANTOPRAZOLE 40 MG TABLET.DR PO SCH (08:11)
[2018-06-20] MEDS: HYDROCORTISONE 20 MG TABLET PO SCH (08:12)
[2018-06-20] MEDS: FLUTICASONE/VILANTEROL 1 EACH BLST.W.DEV IH SCH (08:14)
[2018-06-20] MEDS ORDERED: Medication Not On Formulary EA (Quetiapine Fumarate (Seroquel) 150 MG) PO SCH (09:00)
[2018-06-20] MEDS: ONDANSETRON HCL/PF 4 MG/2 ML VIAL IVP PRN ×2 (11:39→18:23)
[2018-06-20] MEDS: HYDROCORTISONE 5 MG TABLET PO SCH ×2 (12:26→17:25)
--- NOTE | 2018-06-20 13:00 | NUR ---
RN MS NOTES PT IN BED, AWAKE, ALERT AND ORIENTED, PAIN MEDICATION GIVEN FOR PAIN MANAGEMENT ORDERED, REASSESSED NEEDED, NOT IN DISTRESS, IV FLUIDS INFUSING WELL, PT SEEN BY DR. HERNANDEZ, PLAN OF CARE DISCUSSED WITH PT, VERBALIZED UNDERSTANDING, PT ABLE TO AMBULATE TO THE BATHROOM WITH STANDBY ASSISTANCE, NEEDS ATTENDED, CALL LIGHT WITHIN REACH.
[2018-06-20] MEDS: LEVOFLOXACIN 750 MG /D5W 150ML 750 MG in PREMIX 1 EA IV SCH (14:33)
[2018-06-20 16:00] VITALS: BP 100/70
--- NOTE | 2018-06-20 18:32 | NUR ---
RN MS NOTES PT IN BED, AWAKE, ALERT AND ORIENTED, NOT IN DISTRESS, WITH COMPLAINT OF NAUSEA, ZOFRAN GIVEN ORDERED, IV FLUIDS INFUSING WELL, CALL LIGHT WITHIN REACH, TOLERATING CURRENT DIET WELL, ALL NEEDS ATTENDED.
[2018-06-20 20:00] VITALS: BP 109/72
[2018-06-20] MEDS: ENOXAPARIN SODIUM 40 MG/0.4 ML DISP.SYRIN SQ SCH (20:30)
--- NOTE | 2018-06-20 21:03 | NUR ---
RN NOTE PATIENT IS ALERT/ORIENTED X4, REFUSED TO TAKE SEROQUIL 800MG, REQUESTED 600MG, EXPLAINED RISKS AND BENEFITS, STILL REQUESTED ONLY SEROQUIL 600MG, CHARGE NURSE IS AWARE
[2018-06-20] MEDS: LamoTRIgine 100 MG TABLET PO SCH (21:05)
[2018-06-20] MEDS: QUETIAPINE FUMARATE 100 MG TABLET PO SCH (21:06)
--- NOTE | 2018-06-20 21:51 | NUR ---
RN NOTE PATIENT WAS TRANSFERRED TO [facility] SECOND FLOOR, PROVIDED REPORT TO BERNARD MAS FROM MED SURG 2ND FLOOR, PATIENT IS STABLE, VITAL SIGNS STABLE, NO DISTRESS NOTED, PAIN IS WELL CONTROLLED WITH PAIN MEDICATIONS, PATIENT REQUESTED TO SPEAK WITH DR HERNANDEZ TOMORROW REGARDING DISCHARGE, ENDORSED TO BERNARD MAS TO FOLLOW UP, SKIN IS INTACT, ALL SAFETY MEASURES TAKEN UPON TRANSFER
--- NOTE | 2018-06-20 22:00 | NUR ---
RN NOTES RECEIVED PT. FROM MS-1, PT IS A/OX3 BUT READY TO FALL ASLEEP, PT STATED THAT SHE JUST TOOK HER SEROQUEL .. MAKE PT COMFORTABLE, DENIES PAIN AT THIS TIME, NO SOB, CALL LIGHT WITHIN LAUREN, SIDERAILSUPX2, CONTINUE TO MONITOR
[2018-06-21] MEDS: oxyCODONE/APAP (5/325 MG) 1 UDTAB TABLET PO PRN ×4 (02:25→20:33)
--- NOTE | 2018-06-21 02:29 | NUR ---
RN NOTES COMPLAINED OF ABDOMINAL PAIN, PAIN LEVEL 8/10- PERCOCET 2 TABS PO GIVEN ORDERED, V/S STABLE
[2018-06-21 06:29] LABS: CALCIUM, SERUM 8.9 mg/dL (8.5-10.1); CREATININE 0.6 mg/dL (0.6-1.3); POTASSIUM 4.5 mmol/L (3.5-5.1)
--- NOTE | 2018-06-21 06:36 | NUR ---
RN NOTES AWAKE, MORNING CARE RENDERED, DENIES PAIN, AT THIS TIME, NO SOB, SIDERAILSUPX2, PT. NEEDS ATTENDED. ENDORSED TO DAYSHIFT NURSE FOR CONTINUITY OF CARE
[2018-06-21 06:44] LABS: BASOPHILS % (AUTO) 0.2 % (0.0-2.0); EOSINOPHILS % (AUTO) 5.8 % (0.0-6.0); HEMATOCRIT 40 % (33-45); HEMOGLOBIN 13.4 g/dL (11.5-14.8); LYMPHOCYTES # (AUTO) 1.8 /CMM (0.8-4.8); LYMPHOCYTES % (AUTO) 40.9 % (20.0-44.0); MEAN CORPUSCULAR HEMOGLOBIN 32 PG (26.0-33.0); MEAN CORPUSCULAR HGB CONC 33 g/dl (31.0-36.0); MEAN CORPUSCULAR VOLUME 95 fL (82-100); MONOCYTES # (AUTO) 0.2 /CMM (0.1-1.30); MONOCYTES % (AUTO) 5.6 % (2.0-12.0); NEUTROPHILS # (AUTO) 2.1 /CMM (1.8-8.9); NEUTROPHILS % (AUTO) 47.5 % (43.0-81.0); PLATELET COUNT (AUTO) 222 /CMM (150-450); RDW COEFFICIENT OF VARIATION 13.4 (11.5-15.0); RED BLOOD CELL COUNT(AUTO) 4.24 MIL/uL (4.0-5.2); WHITE BLOOD COUNT (AUTO) 4.4 K/uL (4.3-11.0)
[2018-06-21 08:03] VITALS: BP 110/72
[2018-06-21] MEDS: PANTOPRAZOLE 40 MG TABLET.DR PO SCH (08:21)
[2018-06-21 08:47] LABS: EOSINOPHILS % (MANUAL) 1 % (0-4); LYMPHOCYTES % (MANUAL) 33 % (16-48); MONOCYTES % (MANUAL) 3 % (0-11.0); NEUTROPHILS % (MANUAL) 63 (42-76)
[2018-06-21] MEDS: PREGABALIN 25 MG CAPSULE PO SCH ×2 (09:31→17:56)
[2018-06-21] MEDS: HYDROCORTISONE 20 MG TABLET PO SCH (09:32)
[2018-06-21] MEDS: LIPASE/PROTEASE/AMYLASE 1 EACH CAPSULE.DR PO SCH ×3 (09:32→17:57)
[2018-06-21] MEDS: DOCUSATE SODIUM 100 MG CAPSULE PO SCH (09:32)
[2018-06-21] MEDS: FLUTICASONE/VILANTEROL 1 EACH BLST.W.DEV IH SCH (09:33)
[2018-06-21] MEDS: ARIPIPRAZOLE 5 MG TABLET PO SCH (11:03)
[2018-06-21] MEDS: HYDROCORTISONE 5 MG TABLET PO SCH ×2 (13:54→17:56)
[2018-06-21 14:34] VITALS: BP 106/66
[2018-06-21] MEDS ORDERED: LEVOFLOXACIN (750 MG) 750 MG TABLET PO SCH (15:00)
[2018-06-21 15:58] VITALS: BP 110/61
[2018-06-21] MEDS: clonazePAM 0.5 MG TABLET PO PRN (16:25)
[2018-06-21] MEDS: IV 1/2NS 1000 ML 1,000 ML IV PRN (16:28)
--- NOTE | 2018-06-21 17:30 | NUR ---
PATIENT STATING THAT ANXIETY HAS IMPROVED AFTER KLONOPIN ADMINISTRATION PATIENT ENCOURAGED TO EXPRESS FEELINGS AND EMOTIONS. DENYING SI AND HI
[2018-06-21] MEDS: ONDANSETRON HCL/PF 4 MG/2 ML VIAL IVP PRN (18:50)
--- NOTE | 2018-06-21 19:30 | NUR ---
RN CLOSING NOTES: PATIENT RESTING IN BED. NONLABORED BREATHING NOTED ON ROOM AIR. AOX4. DENYING PAIN AT THE MOMENT. IV SITE ON RIGHT HAND GAUGE 24 PATENT AND INTACT. BED IN LOWEST LOCKED POSITION. CALL LIGHT WITHIN REACH. ENDORSED TO BERNARD MAS
[2018-06-21 20:00] VITALS: BP 102/59
--- NOTE | 2018-06-21 20:00 | NUR ---
RN NOTES RECEIVED PT. AWAKE ON BED, A/OX3, AMBULATORY, DENIES PAIN, NO SOB, CALL LIGHT WITHIN REACH, SIDERALSUPX2, PT. NEEDS ATTENDED
--- NOTE | 2018-06-21 20:35 | NUR ---
RN NOTES COMPLAINED OF GENERALIZED PAIN SPECIALLY ON HER BACK- PAIN LEVEL OF 9/10 PERCOCET 5/325 2 TABS PO GIVEN ORDERED, V/S STABLE
[2018-06-21] MEDS ORDERED: QUETIAPINE FUMARATE 100 MG TABLET ONE (21:47)
[2018-06-21] MEDS: LamoTRIgine 100 MG TABLET PO SCH (21:50)
[2018-06-21] MEDS: ENOXAPARIN SODIUM 40 MG/0.4 ML DISP.SYRIN SQ SCH (21:50)
[2018-06-21] MEDS: QUETIAPINE FUMARATE 100 MG TABLET PO SCH (21:50)
[2018-06-22] MEDS: oxyCODONE/APAP (5/325 MG) 1 UDTAB TABLET PO PRN ×2 (02:36→08:57)
--- NOTE | 2018-06-22 02:39 | NUR ---
RN NOTES COMPLAINED OF BACK PAIN- NORCO 2 TABS PO GIVEN ORDERED, V/S STABLE
--- NOTE | 2018-06-22 06:29 | NUR ---
RN NOTES AWAKE, DENIES PAIN AT THIS TIME, NO SOB, MORNING CARE RENDERED, CALL LIGHT WITHIN REACH, SIDERAILSUPX2, PT. NEEDS ATTENDED
[2018-06-22 06:44] LABS: BASOPHILS % (AUTO) 0.5 % (0.0-2.0); EOSINOPHILS % (AUTO) 3.8 % (0.0-6.0); HEMATOCRIT 40 % (33-45); HEMOGLOBIN 13.1 g/dL (11.5-14.8); LYMPHOCYTES # (AUTO) 1.5 /CMM (0.8-4.8); LYMPHOCYTES % (AUTO) 36.1 % (20.0-44.0); MEAN CORPUSCULAR HEMOGLOBIN 32 PG (26.0-33.0); MEAN CORPUSCULAR HGB CONC 33 g/dl (31.0-36.0); MEAN CORPUSCULAR VOLUME 95 fL (82-100); MONOCYTES # (AUTO) 0.4 /CMM (0.1-1.30); MONOCYTES % (AUTO) 9.3 % (2.0-12.0); NEUTROPHILS # (AUTO) 2.1 /CMM (1.8-8.9); NEUTROPHILS % (AUTO) 50.3 % (43.0-81.0); PLATELET COUNT (AUTO) 215 /CMM (150-450); RDW COEFFICIENT OF VARIATION 12.9 (11.5-15.0); RED BLOOD CELL COUNT(AUTO) 4.17 MIL/uL (4.0-5.2); WHITE BLOOD COUNT (AUTO) 4.2 K/uL (4.3-11.0)
[2018-06-22 07:02] LABS: CALCIUM, SERUM 8.8 mg/dL (8.5-10.1); CREATININE 0.6 mg/dL (0.6-1.3); POTASSIUM 3.9 mmol/L (3.5-5.1)
--- NOTE | 2018-06-22 07:20 | NUR ---
RN OPENING NOTES RECEIVED PATIENT IN BED, AWAKE, ALERT AND ORIENTED X3. NO ACUTE DISTRESS, NO SOB. DENIED PAIN OR DISCOMFORT AT THE MOMENT. IV SITE INTACT AND PATENT. KEPT PATIENT SAFE AND COMFORTABLE. BED IN LOW/LOCKED POSITION, SIDERAILS UPX2, CALL LIGHT IN REACH. WILL CONTINUE TO MONIOTR ACCORDINGLY.
[2018-06-22 08:00] VITALS: BP 106/71
[2018-06-22] MEDS: PREGABALIN 25 MG CAPSULE PO SCH (08:04)
[2018-06-22] MEDS: HYDROCORTISONE 20 MG TABLET PO SCH (08:04)
[2018-06-22] MEDS: ARIPIPRAZOLE 5 MG TABLET PO SCH (08:04)
[2018-06-22] MEDS: DOCUSATE SODIUM 100 MG CAPSULE PO SCH (08:04)
[2018-06-22] MEDS: PANTOPRAZOLE 40 MG TABLET.DR PO SCH (08:04)
[2018-06-22] MEDS: LIPASE/PROTEASE/AMYLASE 1 EACH CAPSULE.DR PO SCH ×2 (08:05→12:27)
[2018-06-22] MEDS: FLUTICASONE/VILANTEROL 1 EACH BLST.W.DEV IH SCH (08:07)
[2018-06-22] MEDS ORDERED: LEVO500T75 PO (09:57)
[2018-06-22] MEDS: clonazePAM 0.5 MG TABLET PO PRN (10:56)
[2018-06-22] MEDS: ONDANSETRON HCL/PF 4 MG/2 ML VIAL IVP PRN (12:24)
[2018-06-22] MEDS: HYDROCORTISONE 5 MG TABLET PO SCH (12:28)
--- NOTE | 2018-06-22 14:30 | NUR ---
DISCHARGED PATIENT IN STABLE CONDITION PICKED UP BY AMBULANCE CREW. REPORT GIVEN TO CHACE PAGAN. DISCHARGE INSTRUCTIONS GIVEN TO PATIENT AND SNF RN, VERBALIZED UNDERSTANDING, DC PAPERWORKS GIVEN. ALL BELONGINGS RETURNED, FORM SIGNED. REMOVED IV, APPLIED PRESSURE, NO BLEEDING, NO COMPLICATIONS. REMOVED NAME BAND.
== END 2018-06-22 14:30 | DRG 177 ==
LOC: ER 10:03 → MEDSG1 12:13 → TELE1 16:52 → MEDSG1 06-19 08:23 → MEDSG2 06-20 21:56
PROVIDERS: ADMIT Internal Medicine; ATTEND Internal Medicine
DX: J69.0 Pneumonitis due to inhalation of food and vomit (principal); G93.41 Metabolic encephalopathy; J44.0 Chronic obstructive pulmonary disease with (acute) lower respiratory infection; R45.851 Suicidal ideations; Z98.84 Bariatric surgery status; Z96.653 Presence of artificial knee joint, bilateral; Z95.0 Presence of cardiac pacemaker; Z90.710 Acquired absence of both cervix and uterus; Z90.49 Acquired absence of other specified parts of digestive tract; Z83.3 Family history of diabetes mellitus; Z79.899 Other long term (current) drug therapy; Z79.891 Long term (current) use of opiate analgesic; Z88.5 Allergy status to narcotic agent; Z88.8 Allergy status to other drugs, medicaments and biological substances; G89.4 Chronic pain syndrome; F25.9 Schizoaffective disorder, unspecified; F41.9 Anxiety disorder, unspecified; E78.5 Hyperlipidemia, unspecified; I25.10 Atherosclerotic heart disease of native coronary artery without angina pectoris; K21.9 Gastro-esophageal reflux disease without esophagitis; F32.9 Major depressive disorder, single episode, unspecified; I49.9 Cardiac arrhythmia, unspecified; I10 Essential (primary) hypertension; E11.9 Type 2 diabetes mellitus without complications; E66.9 Obesity, unspecified; Z68.21 Body mass index [BMI] 21.0-21.9, adult; M19.90 Unspecified osteoarthritis, unspecified site
CPT/HCPCS: 36415; 71045-TC; 80048-TC; 80053-TC; 80061-TC; 83605-TC; 83735-TC; 84100-TC; 85025-TC; 87040-TC; 87070-TC; 87081-TC; A4216; A4606; C9113; J1650; J1956; J2405; J2543; J3370; J3490; J7030; J7060; Q0163; Z7610

== ENCOUNTER 2018-07-16 19:24 | Emergency (ER) | payer MEDICARE, MEDICAID ==
[~2018-07-16] VITALS: Ht 157.5 cm; Wt 54.4 kg
[~2018-07-16 19:24] MED LIST changes: -ALBU6.7H IH; -ARIP20TA4 PO; +ARIP5TAB20 PO; +CLON0.5T PO; +FLUT1BLS IH; -FLUT1DIS IH; -HYOS0.1273 PO; +IPRA3AMP23 IH; +LEVO500T75 PO; -LIPA1CAP28 PO; +LIPA1CAP8 PO; -LORA-259 PO; -OXYC-133 PO; +QUET50TA PO; +TEMA7.5C PO
--- NOTE | 2018-07-16 19:32 | NUR ---
PT BIB SELF TO ER BED 12. PT IS C/O DIZZINESS, GENERALIZED WEAKNESS. PT STATES SHE SIGNED HERSELF OUT AND TOOK THE BUS BECAUSES SHE IS BEING GIVEN "INAPPROPRIATE MEDICATIONS." STATES WAS AT [facility] FOR PNEUMONIA. HX OF BI PLAR AND SCHIZOPRENIA. PLACED ON MONITOR. VSS. AWAITING MD CURRY.
--- NOTE | 2018-07-16 20:23 | NUR ---
DR MEHTA AT BEDSIDE FOR EVAL.
[2018-07-16] MEDS ORDERED: HALOPERIDOL LACTATE INJ 5 MG/ML VIAL IM ONE (20:30)
[2018-07-16] MEDS ORDERED: HALOPERIDOL LACTATE INJ 5 MG/ML VIAL ONE (20:35)
--- NOTE | 2018-07-16 20:36 | NUR ---
TOURIST GUIDE AT BEDSIDE FOR BLOOD DRAW.
[2018-07-16 20:40] LABS: BASOPHILS # (AUTO) 0.1 /CMM (0.0-0.2); BASOPHILS % (AUTO) 1.6 % (0.0-2.0); HEMATOCRIT 39 % (33-45); HEMOGLOBIN 12.7 g/dL (11.5-14.8); LYMPHOCYTES # (AUTO) 1.3 /CMM (0.8-4.8); LYMPHOCYTES % (AUTO) 26.7 % (20.0-44.0); MEAN CORPUSCULAR HEMOGLOBIN 30 PG (26.0-33.0); MEAN CORPUSCULAR HGB CONC 33 g/dl (31.0-36.0); MEAN CORPUSCULAR VOLUME 92 fL (82-100); MONOCYTES # (AUTO) 0.5 /CMM (0.1-1.30); NEUTROPHILS # (AUTO) 2.7 /CMM (1.8-8.9); NEUTROPHILS % (AUTO) 59.7 % (43.0-81.0); PLATELET COUNT (AUTO) 269 /CMM (150-450); RED BLOOD CELL COUNT(AUTO) 4.22 MIL/uL (4.0-5.2); WHITE BLOOD COUNT (AUTO) 4.7 K/uL (4.3-11.0)
[2018-07-16 20:49] LABS: CALCIUM, SERUM 8.8 mg/dL (8.5-10.1); CREATININE 0.8 mg/dL (0.6-1.3); POTASSIUM 4.4 mmol/L (3.5-5.1)
[2018-07-16 21:45] LABS: APPEARANCE,URINE Slightly Cloudy (CLEAR); BILIRUBIN,URINE Negative (NEGATIVE); BLOOD, URINE Trace-lysed Ery/uL (NEGATIVE); COLOR,URINE Light yellow (YELLOW); KETONES,URINE Negative (NEGATIVE); LEUKOCYTE ESTERASE ,URINE Large (NEGATIVE); NITRITE, URINE Negative (NEGATIVE); PH,URINE 5.5 (5.0-8.0); PROTEIN,URINE Negative (NEGATIVE); UGLUCOSE Negative (NEGATIVE); UROBILINOGEN,URINE 0.2 EU/dL (0.2)
[2018-07-16 21:59] LABS: BACTERIA,URINE 2+ /HPF (None Seen); SQUAMOUS EPITHELIAL CELL,UR Few /HPF (None Seen); WBC,URINE 21-50 /HPF (0-3)
[2018-07-16] MEDS ORDERED: CEFTRIAXONE 1 G in IV D5W 50 ML IV ONE (22:00)
[2018-07-16] MEDS ORDERED: CEFTRIAXONE 1 G VIAL ONE (22:00)
--- NOTE | 2018-07-16 23:09 | NUR ---
Patient discharged to home in stable condition. Written and verbal after care instructions given. Patient verbalizes understanding of instruction.IV removed. Catheter intact and site benign. Pressure and 4x4 applied to site. No bleeding noted.
[2018-07-16 23:10] VITALS: BP 140/83
== END 2018-07-16 23:11 | disposition home or self-care (01) ==
LOC: ER 19:30
DX: F41.9 Anxiety disorder, unspecified (principal); G89.4 Chronic pain syndrome; E11.9 Type 2 diabetes mellitus without complications; F17.200 Nicotine dependence, unspecified, uncomplicated; F11.20 Opioid dependence, uncomplicated; Z98.890 Other specified postprocedural states; Z88.5 Allergy status to narcotic agent; Z88.1 Allergy status to other antibiotic agents; Z88.8 Allergy status to other drugs, medicaments and biological substances; Z98.84 Bariatric surgery status
CPT/HCPCS: 36415; 80048; 81001; 85025; 87077; 87086; 96365; 96372; 99284; A4606; J0696; J1630; J7060 ×2; 81000-TC; Z7610

== ENCOUNTER 2018-07-30 12:22 | Inpatient (IN) | payer MEDICARE, MEDICAID ==
[~2018-07-30] VITALS: Ht 157.5 cm; Wt 55.3 kg
[2018-07-30] MEDS ORDERED: ONDANSETRON HCL/PF 4 MG/2 ML VIAL IVP ONE (13:30)
[2018-07-30] MEDS ORDERED: IV NS 0.9% 1,000 ML BAG IV ONE (13:30)
[2018-07-30 13:47] LABS: BASOPHILS % (AUTO) 0.6 % (0.0-2.0); EOSINOPHILS % (AUTO) 0.9 % (0.0-6.0); HEMATOCRIT 41 % (33-45); HEMOGLOBIN 13.8 g/dL (11.5-14.8); LYMPHOCYTES # (AUTO) 0.4 /CMM (0.8-4.8); LYMPHOCYTES % (AUTO) 4.8 % (20.0-44.0); MEAN CORPUSCULAR HGB CONC 34 g/dl (31.0-36.0); MEAN CORPUSCULAR VOLUME 91 fL (82-100); MONOCYTES % (AUTO) 0.1 % (2.0-12.0); NEUTROPHILS # (AUTO) 7.2 /CMM (1.8-8.9); NEUTROPHILS % (AUTO) 93.6 % (43.0-81.0); PLATELET COUNT (AUTO) 264 /CMM (150-450); RDW COEFFICIENT OF VARIATION 12.5 (11.5-15.0); RED BLOOD CELL COUNT(AUTO) 4.51 MIL/uL (4.0-5.2); WHITE BLOOD COUNT (AUTO) 7.7 K/uL (4.3-11.0)
[2018-07-30] MEDS ORDERED: ONDANSETRON HCL/PF 4 MG/2 ML VIAL ONE (13:53)
[2018-07-30 13:56] LABS: CALCIUM, SERUM 8.2 mg/dL (8.5-10.1); CARBON DIOXIDE 29 mmol/L (21-32); CHLORIDE 101 mmol/L (98-107); GLUCOSE 77 mg/dL (74-106); POTASSIUM 3.8 mmol/L (3.5-5.1); SODIUM SERUM 133 mmol/L (136-145); UREA NITROGEN, BLOOD 21 mg/dL (7-18)
[2018-07-30 14:00] LABS: INR 0.98 (0.85-1.15)
[2018-07-30 14:02] LABS: ALANINE AMINOTRANSFERASE 18 U/L (12-78); ALBUMIN 3.2 g/dL (3.4-5.0); ALKALINE PHOSPHATASE 106 U/L (46-116); ASPARTATE AMINOTRANSFERASE 17 U/L (15-37); BILIRUBIN,DIRECT 0.1 mg/dL (0.0-0.2); BILIRUBIN,TOTAL 0.3 mg/dL (0.2-1.0); LIPASE 88 U/L (73-393); TOTAL PROTEIN, SERUM 6.7 g/dL (6.4-8.2)
[2018-07-30 14:04] LABS: TROPONIN I < 0.017 ng/mL (0.00-0.056)
[2018-07-30] MEDS ORDERED: MORPHINE SULFATE INJ 2 MG/ML DISP.SYRIN IV ONE (14:30)
[2018-07-30] MEDS ORDERED: MORPHINE SULFATE INJ 4 MG/ML DISP.SYRIN ONE (14:31)
[2018-07-30] MEDS ORDERED: ACETAMINOPHEN ES 500 MG TABLET ONE (14:47)
[2018-07-30] MEDS ORDERED: ACETAMINOPHEN 325 MG TABLET PO ONE (15:00)
[2018-07-30 16:41] LABS: APPEARANCE,URINE Clear (CLEAR); BILIRUBIN,URINE SMALL (NEGATIVE); BLOOD, URINE Negative Ery/uL (NEGATIVE); COLOR,URINE Yellow (YELLOW); KETONES,URINE 15 (NEGATIVE); LEUKOCYTE ESTERASE ,URINE Trace (NEGATIVE); NITRITE, URINE Negative (NEGATIVE); PROTEIN,URINE Negative (NEGATIVE); UGLUCOSE Negative (NEGATIVE); UROBILINOGEN,URINE 0.2 EU/dL (0.2)
[2018-07-30 17:20] LABS: BACTERIA,URINE MANY /HPF (None Seen); RBC,URINE 0-2 /HPF (0-2); SQUAMOUS EPITHELIAL CELL,UR MODERATE /HPF (None Seen)
[2018-07-30] MEDS ORDERED: CEFTRIAXONE 1GM BAG (ER ONLY) 1 GM/50 ML PIGGYBACK IV ONE (17:30)
[2018-07-30] MEDS ORDERED: CEFTRIAXONE 1 G in IV D5W 50 ML IV ONE (18:00)
--- NOTE | 2018-07-30 19:25 | NUR ---
ASSUMED CARE OF PT AT THIS TIME. REPORT RECEIVED FROM CHACE ESPARZA FOR ABDOUL
--- NOTE | 2018-07-30 20:29 | NUR ---
Joe delong in [facility] - 07/30/18 at 2047 by RUPA REPORT GIVEN TO ROSALINDA SWAN FOR ABDOUL.
--- NOTE | 2018-07-30 20:48 | NUR ---
REPORT GIVEN TO ROSALINDA MONTES FOR ABDOUL.
[2018-07-30] MEDS ORDERED: MORPHINE SULFATE INJ 2 MG/ML DISP.SYRIN IV PRN (22:00)
[2018-07-30] MEDS ORDERED: ONDANSETRON HCL/PF 4 MG/2 ML VIAL IVP PRN (22:00)
[2018-07-30] MEDS ORDERED: TEMAZEPAM 7.5 MG CAPSULE PO PRN (22:00)
[2018-07-30] MEDS ORDERED: clonazePAM 0.5 MG TABLET PO PRN (22:00)
--- NOTE | 2018-07-30 22:30 | NUR ---
MS RN OPENING/ADMITTING NOTE Patient arrived from ED on stretcher but was able to ambulate to the bed with steady gait. Patient is AAOx4, breathing comfortably on RA with no SOB, and no signs of acute distress. BP is low at 93/58, but patient is asymptomatic and is ordered to receive continuous IV fluids; otherwise vital signs are WNL. Past medical history and initial physical assessment has been completed. Patient has been made comfortable in bed, and oriented to room and the use of the call oreilly. Admission process has been completed and new orders acknowledged. Patient has no immediate needs/concerns. Will continue to monitor.
[2018-07-30] MEDS: DOCUSATE SODIUM 100 MG CAPSULE PO SCH (22:43)
[2018-07-30 22:45] VITALS: BP 93/58
[2018-07-30] MEDS ORDERED: IV PREMIX NS +20MEQ KCL 1 L IV ONE (22:49)
[2018-07-30] MEDS ORDERED: VANCOMYCIN 1 GM VIAL ONE (22:49)
[2018-07-30] MEDS: LamoTRIgine 100 MG TABLET PO SCH (22:52)
[2018-07-30] MEDS: QUETIAPINE FUMARATE 100 MG TABLET PO SCH (22:52)
--- NOTE | 2018-07-30 22:52 | NUR ---
MS RN NOTE - Seroquel Patient had scheduled PO Seroquel 800mg at 22:00. Medication was scanned and opened in front of patient (eight 100mg tablets). After opening the medication, patient stated that she would take 600mg, but not 800mg. Patient stated that at home she normally takes 600mg of Seroquel at night and 200mg in the morning because she feels like doses higher than 600mg causes too many side effects, such as rapid heart rate. Patient took six tablets (600mg); two tablets (200mg) were discarded in medication waste bin since they were already opened.
[2018-07-30] MEDS ORDERED: VANCOMYCIN 1 GM in IV D5W 250ml IV ONE (23:00)
[2018-07-30] MEDS: Potassium Chloride 20 MEQ in IV NS 0.9% 1,000 ML IV PRN (23:17)
[2018-07-30] MEDS: ACETAMINOPHEN 325 MG TABLET PO PRN (23:21)
--- NOTE | 2018-07-30 23:22 | NUR ---
MS RN NOTE - Tylenol Patient reported approximately 5/10 abdominal pain (acute) as well as back and neck pain (chronic) and requested morphine. I retook patient's BP, which was still 93/58, and I advised the patient that this blood pressure was too low to safely give an opioid pain medication. I recommended using PO Tylenol, which the patient was agreeable to. 650mg PO Tylenol was administered per prn orders.
[2018-07-31] VITALS (7 sets, daily range): BP systolic 83–132; BP diastolic 50–75
[2018-07-31] MEDS ORDERED: PIPERACILLIN /TAZOBACTAM 3.375 G VIAL IV ONE ×2 (01:28→06:33)
[2018-07-31] MEDS: PIPERACILLIN /TAZOBACTAM 3.375 G in IV D5W 50 ML IV SCH ×4 (01:31→17:27)
[2018-07-31] MEDS ORDERED: IV NS 0.9% 500 ML IV ONE (05:00)
--- NOTE | 2018-07-31 05:00 | NUR ---
MS RN NOTE - Low BP, NS Bolus At 04:00 patient's BP on left arm was 90/58. Patient was repositioned into trendelenberg's position with feet higher than the head. BP reassessed 20 minutes later was 83/53. Charge nurse notified. Per charge nurse (Bouchra), recheck again in 15 minutes, then call MD if no improvement. Upon reassessment BP was 88/50 on left arm and 84/53 on right arm (patient still in trendelenberg position). Patient reported feeling lethargic and "slightly" lightheaded. Patient also stated that her baseline BP is normally around 102/50s, and that it is not unusual for her BP to drop when she is lying down or "first wakes up". , Isaias Ley was notified of findings. Per MD, order for bolus of 500ml NS. Per Charge Nurse, I was advised not to run the bolus "wide open" since patient has history of sick-sinus syndrome with pacemaker. NS bolus is running at 300ml/hr.
[2018-07-31 07:25] LABS: ALBUMIN 2.5 g/dL (3.4-5.0); BILIRUBIN,TOTAL 0.2 mg/dL (0.2-1.0); CALCIUM, SERUM 7.5 mg/dL (8.5-10.1); CREATININE 0.8 mg/dL (0.6-1.3); MAGNESIUM 2.2 mg/dL (1.8-2.4); PHOSPHORUS 2.9 mg/dL (2.5-4.9); POTASSIUM 4.1 mmol/L (3.5-5.1); TOTAL PROTEIN, SERUM 5.8 g/dL (6.4-8.2)
--- NOTE | 2018-07-31 07:25 | NUR ---
MS RN CLOSING NOTE Patient is AAOx4, breathing comfortably on RA with no SOB, and no signs of acute distress. 500ml bolus of NS was given this morning due to low BP. Most recent BP was 108/61. Patient remains afebrile with vital signs WNL. IV in right wrist is intact, patent, and shows no signs of leaking or infiltration. Bed is low/locked, two side rails up, and call oreilly within reach. Patient care endorsed to day shift nurse.
[2018-07-31 07:28] LABS: BASOPHILS % (AUTO) 0.1 % (0.0-2.0); EOSINOPHILS % (AUTO) 2.4 % (0.0-6.0); HEMATOCRIT 34 % (33-45); HEMOGLOBIN 12.5 g/dL (11.5-14.8); LYMPHOCYTES # (AUTO) 0.5 /CMM (0.8-4.8); LYMPHOCYTES % (AUTO) 13.8 % (20.0-44.0); MEAN CORPUSCULAR HGB CONC 37 g/dl (31.0-36.0); MEAN CORPUSCULAR VOLUME 93 fL (82-100); MONOCYTES # (AUTO) 0.3 /CMM (0.1-1.30); MONOCYTES % (AUTO) 7.7 % (2.0-12.0); NEUTROPHILS # (AUTO) 2.8 /CMM (1.8-8.9); PLATELET COUNT (AUTO) 205 /CMM (150-450); RDW COEFFICIENT OF VARIATION 12.5 (11.5-15.0); RED BLOOD CELL COUNT(AUTO) 3.65 MIL/uL (4.0-5.2); WHITE BLOOD COUNT (AUTO) 3.7 K/uL (4.3-11.0)
[2018-07-31] MEDS: LIPASE/PROTEASE/AMYLASE 1 EACH CAPSULE.DR PO SCH ×3 (08:00→17:27)
[2018-07-31] MEDS ORDERED: QUETIAPINE FUMARATE 100 MG TABLET PO SCH (08:30)
[2018-07-31] MEDS: ARIPIPRAZOLE 5 MG TABLET PO SCH (08:33)
[2018-07-31] MEDS: ACETAMINOPHEN 325 MG TABLET PO PRN (08:33)
[2018-07-31] MEDS: PANTOPRAZOLE 40 MG TABLET.DR PO SCH (08:33)
[2018-07-31] MEDS: FLUTICASONE/VILANTEROL 1 EACH BLST.W.DEV IH SCH (08:41)
[2018-07-31] MEDS: VANCOMYCIN 0.75 GM in IV D5W 250 ML IV SCH ×2 (12:02→22:24)
[2018-07-31] MEDS ORDERED: ARIP30TA11 PO (14:03)
[2018-07-31] MEDS ORDERED: TOLT4CAP PO (14:04)
[2018-07-31] MEDS ORDERED: FEE PK DOSING 1 MIN EA MC ONE (14:13)
--- NOTE | 2018-07-31 15:06 | NUR ---
PATIENT AAOX4 ALL FOLLOW COMMANDS ROOM AIR NO SOB NON LABORED BREATHING ABDOMEN SOFT NON TENDER FULL LIQUID DIET TOLERATED PT DENIED CHEST PAIN BUT BACK PAIN COMPLAINED TYLENOL PO GIVEN PER JAN PT ABLE TO AMBULATION WITHOUT ASSISTANCE WILL CONTINUE MONITOR
--- NOTE | 2018-07-31 15:20 | NUR ---
MS RN RECEIVED A REPORT FROM YONAS MAS, PATIENT ON BED,AWAKE,ALERT,ORIENTED X4,NOT IN ANY FORM OF DISTRESS, RESPIRATIONS EVEN AND UNLABORED,NO SOB NOTED, LUNGS ARE CLEAR,ABDOMEN SOFT,POSITIVE BOWEL SOUNDS, DENIES PAIN AT THIS TIME, NO DISTRESS NOTED.
[2018-07-31] MEDS: MORPHINE SULFATE INJ 4 MG/ML DISP.SYRIN IV PRN (18:02)
--- NOTE | 2018-07-31 19:18 | NUR ---
ms rn on bed, no distress noted,all needs attended.
--- NOTE | 2018-07-31 19:40 | NUR ---
MS RN NOTE: PATIENT RESTING IN BED, NO ACUTE DISTRESS NOTED. BREATHING EVEN AND UNLABORED, NO SOB NOTED. IV TO RIGHT HAND IN PLACE, INFUSING NS WITH 20 MEQ KCL AT 70 ML/HR. BED LOCKED AND IN LOWEST POSITION, CALL LIGHT IN REACH. WILL CONTINUE TO MONITOR.
[2018-07-31] MEDS: LamoTRIgine 100 MG TABLET PO SCH (22:23)
[2018-07-31] MEDS: QUETIAPINE FUMARATE 100 MG TABLET PO SCH (22:23)
[2018-07-31] MEDS: DOCUSATE SODIUM 100 MG CAPSULE PO SCH (22:23)
[2018-07-31] MEDS: Potassium Chloride 20 MEQ in IV NS 0.9% 1,000 ML IV PRN (22:30)
[2018-08-01] MEDS: VANCOMYCIN HCL 125 MG/2.5 ML ORAL.SUSP PO SCH ×5 (00:43→23:55)
[2018-08-01] MEDS: PIPERACILLIN /TAZOBACTAM 3.375 G in IV D5W 50 ML IV SCH ×4 (00:43→20:02)
--- NOTE | 2018-08-01 03:00 | NUR ---
MS RN NOTE: PATIENT SLEEPING IN BED, NO ACUTE DISTRESS NOTED. BREATHING EVEN AND UNLABORED, NO SOB NOTED. BED LOCKED AND IN LOWEST POSITION, CALL LIGHT IN REACH. WILL CONTINUE TO MONITOR.
--- NOTE | 2018-08-01 06:15 | NUR ---
MS RN NOTE: PATIENT RESTING IN BED, NO ACUTE DISTRESS NOTED. BREATHING EVEN AND UNLABORED, NO SOB NOTED. IV TO RIGHT HAND IN PLACE, INFUSING NS WITH 20 MEQ KCL AT 70 ML/HR. BED LOCKED AND IN LOWEST POSITION, CALL LIGHT IN REACH. WILL ENDORSE TO DAY NURSE TO CONTINUE WITH PLAN OF CARE.
[2018-08-01 07:55] LABS: CREATININE 0.8 mg/dL (0.6-1.3); MAGNESIUM 2.1 mg/dL (1.8-2.4); PHOSPHORUS 2.6 mg/dL (2.5-4.9); POTASSIUM 3.5 mmol/L (3.5-5.1)
[2018-08-01 08:06] LABS: BASOPHILS % (AUTO) 0.6 % (0.0-2.0); EOSINOPHILS % (AUTO) 4.9 % (0.0-6.0); HEMATOCRIT 37 % (33-45); HEMOGLOBIN 12.4 g/dL (11.5-14.8); LYMPHOCYTES # (AUTO) 1.1 /CMM (0.8-4.8); LYMPHOCYTES % (AUTO) 33.7 % (20.0-44.0); MEAN CORPUSCULAR HGB CONC 33 g/dl (31.0-36.0); MEAN CORPUSCULAR VOLUME 94 fL (82-100); MONOCYTES # (AUTO) 0.4 /CMM (0.1-1.30); MONOCYTES % (AUTO) 11.2 % (2.0-12.0); NEUTROPHILS # (AUTO) 1.6 /CMM (1.8-8.9); NEUTROPHILS % (AUTO) 49.6 % (43.0-81.0); PLATELET COUNT (AUTO) 236 /CMM (150-450); RDW COEFFICIENT OF VARIATION 13.7 (11.5-15.0); RED BLOOD CELL COUNT(AUTO) 3.99 MIL/uL (4.0-5.2); WHITE BLOOD COUNT (AUTO) 3.2 K/uL (4.3-11.0)
[2018-08-01 08:22] VITALS: BP 97/59
[2018-08-01] MEDS: MORPHINE SULFATE INJ 4 MG/ML DISP.SYRIN IV PRN ×3 (10:02→20:04)
[2018-08-01] MEDS: PANTOPRAZOLE 40 MG TABLET.DR PO SCH (11:12)
[2018-08-01] MEDS: FLUTICASONE/VILANTEROL 1 EACH BLST.W.DEV IH SCH (11:12)
[2018-08-01] MEDS: ARIPIPRAZOLE 5 MG TABLET PO SCH (11:12)
[2018-08-01] MEDS: LIPASE/PROTEASE/AMYLASE 1 EACH CAPSULE.DR PO SCH ×3 (11:12→20:02)
--- NOTE | 2018-08-01 11:29 | NUR ---
Social service consult requested by wrapper caser Suzy Gonsalves regarding homeless resources. Pt. is a 57 year old female who was admitted to [facility] for abdominal pain and UTI. SW met with pt. bedside. Pt. is congenial and appears well-groomed. Pt. informed SW that she has an appointment with [employer] on August 13 to get her housing voucher and doesn't want to go to a SNF as recommended by the doctor. Pt. states, she will reside at her friend Baldomero Avendaño's house once discharged from [facility]. Baldomero resides at [address] [place] [address], [address], [place]. [place] SW to offer pt. homeless skilled nursing resources including [facility] skilled nursing located at [address] [address] . Pt. informed SW she will call the skilled nursing herself on the day she plans to go to the skilled nursing. No other social service needs are requested at this time.
--- NOTE | 2018-08-01 12:30 | NUR ---
IV SITE PUFFY AND UNCOMFORTABLE.REMOVED AND RESTARTED LT. FOREARM BY RN WITH #22.
[2018-08-01] MEDS: VANCOMYCIN 0.75 GM in IV D5W 250 ML IV SCH ×2 (13:03→22:36)
[2018-08-01 16:00] VITALS: BP 96/51
[2018-08-01 20:00] VITALS: BP 108/62
--- NOTE | 2018-08-01 20:12 | NUR ---
RN NOTES COMPLAINED OF ABDOMINAL PAIN AND FEELING NAUSEOUS- MORPHINE 2 MG IV GIVEN ORDERED, V/S STABLE AND ZOFRAN 4 MG IV FOR NAUSEA
[2018-08-01] MEDS: Potassium Chloride 20 MEQ in IV NS 0.9% 1,000 ML IV PRN (20:19)
--- NOTE | 2018-08-01 21:00 | NUR ---
RN NOTES NEW IV LINE INSERTED IN THE RIGHT FOREARM GAUGE 22
[2018-08-01] MEDS: LamoTRIgine 100 MG TABLET PO SCH (21:40)
[2018-08-01] MEDS: DOCUSATE SODIUM 100 MG CAPSULE PO SCH (21:44)
[2018-08-01] MEDS ORDERED: QUETIAPINE FUMARATE 100 MG TABLET PO SCH (22:00)
[2018-08-01] MEDS ORDERED: CEFTRIAXONE 1 G VIAL IM SCH (23:30)
--- NOTE | 2018-08-01 23:44 | NUR ---
RN NOTES CALL DR. ARAMBULA AND INFORMED HIM THAT ELIJAH GARCIA-CHIEF CREATIVE OFFICER ORDERED ROCEPHIN 1 GM IM AND DISCONTINUED ZOSYN AND VANCO IV ... PT IS REFUSING TO RECEIVED IT THROUGH IM,. DR. ARAMBULA TOLD ME THAT WERE GOING TO DEAL IT IN THE MORNING
[2018-08-02] MEDS: MORPHINE SULFATE INJ 4 MG/ML DISP.SYRIN IV PRN ×3 (01:32→10:30)
--- NOTE | 2018-08-02 01:36 | NUR ---
RN NOTES COMPLAINED OF ABDOMINAL PAIN- MORPHINE 2 MG IV GIVEN S ORDERED, V/S STABLE
[2018-08-02] MEDS: VANCOMYCIN HCL 125 MG/2.5 ML ORAL.SUSP PO SCH ×2 (05:38→12:07)
--- NOTE | 2018-08-02 05:41 | NUR ---
RN NOTES COMPLAINED OF ABDOMINAL PAIN- MORPHINE 2 MG IV GIVEN ORDERED, V/S STABLE
--- NOTE | 2018-08-02 06:22 | NUR ---
RN NOTES AWAKE, MORNING CARE RENDERED, DENIES PAIN AT THIS TIME, NO SOB, PT. NEEDS ATTENDED
[2018-08-02 07:06] LABS: CALCIUM, SERUM 8.4 mg/dL (8.5-10.1); CREATININE 0.7 mg/dL (0.6-1.3); MAGNESIUM 1.8 mg/dL (1.8-2.4); PHOSPHORUS 3.8 mg/dL (2.5-4.9)
--- NOTE | 2018-08-02 07:20 | NUR ---
MS/RN OPENING NOTE PATIENT ALERT AND ORIENTED X4. DENIES SOB. RESPIRATION REGULAR AND UNLABORED. DENIES PAIN AT THIS TIME. ABDOMEN SOFT AND NON-DISTENDED. NORMAL BOWEL SOUNDS HEARD IN ALL FOUR QUADRANTS. RFA G 22 PATENT AND IV FLUID INFUSING WITH NO S/S INFILTRATION. BED LOW AND LOCKED. SIDE RAILS UP X3. CALL LIGHT WITHIN REACH. WILL CONTINUE TO MONITOR.
[2018-08-02 08:00] VITALS: BP 112/71
[2018-08-02 08:00] LABS: HEMATOCRIT 34 % (33-45); HEMOGLOBIN 11.4 g/dL (11.5-14.8); MEAN CORPUSCULAR HGB CONC 34 g/dl (31.0-36.0); MEAN CORPUSCULAR VOLUME 93 fL (82-100); PLATELET COUNT (AUTO) 229 /CMM (150-450); RDW COEFFICIENT OF VARIATION 13.4 (11.5-15.0); RED BLOOD CELL COUNT(AUTO) 3.62 MIL/uL (4.0-5.2); WHITE BLOOD COUNT (AUTO) 4.2 K/uL (4.3-11.0)
[2018-08-02 08:01] LABS: BASOPHILS % (AUTO) 0.4 % (0.0-2.0); EOSINOPHILS % (AUTO) 4.1 % (0.0-6.0); LYMPHOCYTES # (AUTO) 1.2 /CMM (0.8-4.8); LYMPHOCYTES % (AUTO) 28.4 % (20.0-44.0); MONOCYTES # (AUTO) 0.4 /CMM (0.1-1.30); MONOCYTES % (AUTO) 9.7 % (2.0-12.0); NEUTROPHILS # (AUTO) 2.4 /CMM (1.8-8.9); NEUTROPHILS % (AUTO) 57.4 % (43.0-81.0)
[2018-08-02] MEDS: FLUTICASONE/VILANTEROL 1 EACH BLST.W.DEV IH SCH (08:08)
[2018-08-02] MEDS: LIPASE/PROTEASE/AMYLASE 1 EACH CAPSULE.DR PO SCH ×2 (08:09→12:07)
[2018-08-02] MEDS: PANTOPRAZOLE 40 MG TABLET.DR PO SCH (08:09)
[2018-08-02] MEDS: ARIPIPRAZOLE 5 MG TABLET PO SCH (08:10)
[2018-08-02] MEDS ORDERED: QUETIAPINE FUMARATE 100 MG TABLET PO SCH (09:00)
--- NOTE | 2018-08-02 10:44 | NUR ---
HAMILTON met with pt. and gave her homeless care home resources including [facility] home located at [address] [place] [phone] . SW reiterated to the pt. to call the care home on the day she plans to go to the care home. No other social service needs are requested at this time. SW is available, if needed. Pt. states she has a bus pass and will transport herself to her friend's house.
[2018-08-02] MEDS ORDERED: CEPH-570 PO (13:35)
[2018-08-02] MEDS ORDERED: QUET100T PO ×2 (13:35)
[2018-08-02] MEDS ORDERED: SENN-175 PO (13:35)
[2018-08-02] MEDS ORDERED: POLY17PO4 PO (13:35)
--- NOTE | 2018-08-02 15:15 | NUR ---
MS/RN NOTE PATIENT ALERT AND ORIENTED X4. DENIES SOB. RESPIRATION REGULAR AND UNLABORED. DENIES PAIN. VITAL SIGNS STABLE. PATIENT IS GIVEN DISCHARGE INSTRUCTION/EDUCATION AND SHE VERBALIZED UNDERSTANDING. PRESCRIPTIONS HANDED TO THE PATIENT AND COPY PLACED IN THE CHART. THE PATIENT STATED THAT SHE IS GOING TO SNF. THE PATIENT WILL USE BUS AND WILL LEAVE THE HOSPITAL BY HERSELF. THE PATIENT IN STABLE CONDITION. THE PATIENT REFUSED BUS TOKENS STATING THAT SHE WAS A BUS PASS. PATIENT LEAVING THE HOSPITAL IN STABLE CONDITION.
== END 2018-08-02 15:15 | disposition home or self-care (01) | DRG 871 ==
LOC: ER 12:22 → MED 21:27
PROVIDERS: ADMIT Internal Medicine; ATTEND Internal Medicine
DX: A41.9 Sepsis, unspecified organism (principal); J69.0 Pneumonitis due to inhalation of food and vomit; K85.90 Acute pancreatitis without necrosis or infection, unspecified; N39.0 Urinary tract infection, site not specified; E27.40 Unspecified adrenocortical insufficiency; A04.72 Enterocolitis due to Clostridium difficile, not specified as recurrent; E44.0 Moderate protein-calorie malnutrition; F11.20 Opioid dependence, uncomplicated; E11.9 Type 2 diabetes mellitus without complications; E78.5 Hyperlipidemia, unspecified; F41.9 Anxiety disorder, unspecified; F17.200 Nicotine dependence, unspecified, uncomplicated; Z98.84 Bariatric surgery status; Z90.710 Acquired absence of both cervix and uterus; Z90.49 Acquired absence of other specified parts of digestive tract; Z95.0 Presence of cardiac pacemaker; Z87.440 Personal history of urinary (tract) infections; Z83.3 Family history of diabetes mellitus; Z82.49 Family history of ischemic heart disease and other diseases of the circulatory system; Z80.9 Family history of malignant neoplasm, unspecified; K59.00 Constipation, unspecified; E11.22 Type 2 diabetes mellitus with diabetic chronic kidney disease; G89.4 Chronic pain syndrome; Z88.5 Allergy status to narcotic agent; Z88.8 Allergy status to other drugs, medicaments and biological substances; Z91.041 Radiographic dye allergy status; Z79.899 Other long term (current) drug therapy; I49.9 Cardiac arrhythmia, unspecified; I25.10 Atherosclerotic heart disease of native coronary artery without angina pectoris; Z98.890 Other specified postprocedural states; M19.90 Unspecified osteoarthritis, unspecified site; E66.9 Obesity, unspecified; J44.9 Chronic obstructive pulmonary disease, unspecified; M81.0 Age-related osteoporosis without current pathological fracture; K21.9 Gastro-esophageal reflux disease without esophagitis; I49.5 Sick sinus syndrome; Z91.5 Personal history of self-harm; Z96.652 Presence of left artificial knee joint; F25.0 Schizoaffective disorder, bipolar type; K83.8 Other specified diseases of biliary tract; Z87.01 Personal history of pneumonia (recurrent); Z59.0 Homelessness
CPT/HCPCS: 36415; 71045-TC; 80048-TC; 80053-TC; 80076-TC; 80202-TC; 81000-TC; 83605-TC; 83690-TC; 83735-TC; 84100-TC; 84484-TC; 85025-TC; 85730-TC; 87040-TC; 87081-TC; 87086-TC; 87186-TC; A4606; J0696; J2270; J2405; J2543; J3370; J3480; J3490; J7030; J7040; J7050; J7060; Z7610

== ENCOUNTER → 2018-10-30 | Emergency (ER) | payer MEDICARE, MEDICAID ==
[~2018-10-30] VITALS: Ht 165.1 cm; Wt 70.3 kg
[~2018-10-30] MED LIST changes: +ARIP30TA11 PO; -ARIP5TAB20 PO; +CEPH-570 PO; +HYDROCODONE/APAP 5/325MG 1 EACH TABLET ONE; +HYDROCODONE/APAP 5/325MG 1 EACH TABLET PO ONE; -LEVO500T75 PO; +POLY17PO4 PO; +QUET100T PO; -QUET400T PO; -QUET50TA PO; +SENN-175 PO; +TOLT4CAP PO
--- NOTE | 2018-10-30 06:15 | NUR ---
PT BIBRA FROM HOME C/O RIGHT KNEE PAIN. PT AOX4. PT ON MONITOR IN BED 1. WILL CONTINUE TO MONITOR.
--- NOTE | 2018-10-30 06:51 | NUR ---
RADIOLOGY AT BEDSIDE FOR XRAY
[2018-10-30 07:59] VITALS: BP 145/74
--- NOTE | 2018-10-30 07:59 | NUR ---
Patient discharged to home in stable condition. Written and verbal after care instructions given. Patient verbalizes understanding of instruction.
== END | disposition home or self-care (01) ==
LOC: ER 05:05
DX: M25.561 Pain in right knee (principal); G89.29 Other chronic pain; F11.20 Opioid dependence, uncomplicated; E11.9 Type 2 diabetes mellitus without complications; F17.200 Nicotine dependence, unspecified, uncomplicated; Z98.84 Bariatric surgery status; Z88.5 Allergy status to narcotic agent; Z88.6 Allergy status to analgesic agent; Z88.8 Allergy status to other drugs, medicaments and biological substances; Z88.9 Allergy status to unspecified drugs, medicaments and biological substances
CPT/HCPCS: 73564; 99283; A4606; Z7610

== ENCOUNTER 2019-07-09 14:08 | Emergency (ER) | payer MEDICARE, MEDICAID ==
[~2019-07-09] VITALS: Ht 160 cm; Wt 49.9 kg
[~2019-07-09 14:08] MED LIST changes: -ARIP30TA11 PO; +ARIP30TA21 PO; -HYDROCODONE/APAP 5/325MG 1 EACH TABLET ONE; -HYDROCODONE/APAP 5/325MG 1 EACH TABLET PO ONE
--- NOTE | 2019-07-09 14:30 | NUR ---
"ANN/Dizzy/nauseous/weak/dont feel good/chills been going on for a while"
--- NOTE | 2019-07-09 14:30 | NUR ---
Monitor for patient safety. educated on fall prevention. Reinforced diet.
[2019-07-09] MEDS: IV NS 0.9% 1,000 ML BAG IV ONE (15:00)
[2019-07-09 15:24] LABS: BASOPHILS % (AUTO) 0.6 % (0.0-2.0); EOSINOPHILS % (AUTO) 3.8 % (0.0-6.0); HEMATOCRIT 32 % (33-45); HEMOGLOBIN 10.5 g/dL (11.5-14.8); LYMPHOCYTES # (AUTO) 1.2 /CMM (0.8-4.8); LYMPHOCYTES % (AUTO) 32.9 % (20.0-44.0); MEAN CORPUSCULAR HGB CONC 33 g/dl (31.0-36.0); MEAN CORPUSCULAR VOLUME 86 fL (82-100); MONOCYTES # (AUTO) 0.3 /CMM (0.1-1.30); MONOCYTES % (AUTO) 8.3 % (2.0-12.0); NEUTROPHILS % (AUTO) 54.4 % (43.0-81.0); PLATELET COUNT (AUTO) 237 /CMM (150-450); RED BLOOD CELL COUNT(AUTO) 3.74 MIL/uL (4.0-5.2); WHITE BLOOD COUNT (AUTO) 3.7 K/uL (4.3-11.0)
[2019-07-09 15:30] LABS: CALCIUM, SERUM 8.2 mg/dL (8.5-10.1); CREATININE 0.6 mg/dL (0.6-1.3); POTASSIUM 3.7 mmol/L (3.5-5.1)
[2019-07-09 15:33] LABS: APPEARANCE,URINE Clear (CLEAR); BILIRUBIN,URINE Negative (NEGATIVE); BLOOD, URINE Negative Ery/uL (NEGATIVE); COLOR,URINE Yellow (YELLOW); KETONES,URINE Negative (NEGATIVE); LEUKOCYTE ESTERASE ,URINE Negative (NEGATIVE); NITRITE, URINE Negative (NEGATIVE); PROTEIN,URINE Negative (NEGATIVE); UGLUCOSE Negative (NEGATIVE); UROBILINOGEN,URINE 0.2 EU/dL (0.2)
[2019-07-09] MEDS ORDERED: ONDANSETRON HCL/PF 4 MG/2 ML VIAL ONE (16:04)
[2019-07-09] MEDS: ONDANSETRON HCL/PF 4 MG/2 ML VIAL IV ONE (16:10)
[2019-07-09 16:11] LABS: ALBUMIN 3.3 g/dL (3.4-5.0); BILIRUBIN,DIRECT 0.1 mg/dL (0.0-0.2); BILIRUBIN,TOTAL 0.1 mg/dL (0.2-1.0); TOTAL PROTEIN, SERUM 6.5 g/dL (6.4-8.2)
[2019-07-09 16:53] VITALS: BP 128/71
--- NOTE | 2019-07-09 16:55 | NUR ---
Patient discharged to home in stable condition. Written and verbal after care instructions given. Patient verbalizes understanding of instruction.
== END 2019-07-09 16:54 | disposition home or self-care (01) ==
LOC: ER 14:08
DX: R53.1 Weakness (principal); D64.9 Anemia, unspecified; R11.2 Nausea with vomiting, unspecified; E11.9 Type 2 diabetes mellitus without complications; G89.4 Chronic pain syndrome; F11.20 Opioid dependence, uncomplicated; F17.200 Nicotine dependence, unspecified, uncomplicated; Z88.5 Allergy status to narcotic agent; Z88.8 Allergy status to other drugs, medicaments and biological substances; Z91.048 Other nonmedicinal substance allergy status; Z79.899 Other long term (current) drug therapy
CPT/HCPCS: 36415; 80048; 80076; 81001; 83690; 85025; 96361; 96374; 99283; J2405; J7030; 81000-TC

== ENCOUNTER 2021-08-24 12:51 | Inpatient (IN) | payer MEDICARE, OTHER ==
[~2021-08-24] VITALS: Ht 157.5 cm; Wt 44.5 kg
[2021-08-24] MEDS ORDERED: DEXTROSE 50%-WATER 50 ML DISP.SYRIN ONE (15:50)
[2021-08-24] MEDS ORDERED: DEXTROSE 50%-WATER 50 ML DISP.SYRIN IVP ONE ×2 (16:00→16:30)
--- NOTE | 2021-08-24 16:00 | NUR ---
PATIENT A/OX4, BREATHING EVEN AND UNLABORED, NO SOB NOTED. VERBALLY RESPONSIVE. DR. MATTA MADE AWARE OF BG OF 45. RECEIVED VERBAL ORDER TO GIVE D50% 1 AMP X1. PATIENT ALSO GIVEN ORANGE JUICE TO DRINK.
--- NOTE | 2021-08-24 16:01 | NUR ---
PER DR SIGRID POSADA TO GIVE FOOD, ORDERED A FOOD TRAY.
[2021-08-24 16:03] LABS: BASOPHILS % (AUTO) 0.4 % (0.0-2.0); HEMATOCRIT 32 % (33-45); HEMOGLOBIN 10.3 g/dL (11.5-14.8); LYMPHOCYTES # (AUTO) 1.4 K/uL (0.8-4.8); LYMPHOCYTES % (AUTO) 24.7 % (20.0-44.0); MEAN CORPUSCULAR HGB CONC 33 g/dl (31.0-36.0); MEAN CORPUSCULAR VOLUME 90 fL (82-100); MONOCYTES # (AUTO) 0.4 K/uL (0.1-1.30); MONOCYTES % (AUTO) 6.3 % (2.0-12.0); NEUTROPHILS # (AUTO) 3.4 K/uL (1.8-8.9); NEUTROPHILS % (AUTO) 60.6 % (43.0-81.0); PLATELET COUNT (AUTO) 228 K/uL (150-450); RED BLOOD CELL COUNT(AUTO) 3.52 MIL/uL (4.0-5.2); WHITE BLOOD COUNT (AUTO) 5.6 K/uL (4.3-11.0)
--- NOTE | 2021-08-24 16:04 | NUR ---
CANCELED ANOTHER ORDER FOR D50%. DUPLICATE ORDER.
[2021-08-24 16:12] LABS: CALCIUM, SERUM 7.5 mg/dL (8.5-10.1); CARBON DIOXIDE 26 mmol/L (21-32); CHLORIDE 110 mmol/L (98-107); CREATININE 0.7 mg/dL (0.6-1.3); GLUCOSE 75 mg/dL (74-106); SODIUM SERUM 142 mmol/L (136-145); UREA NITROGEN, BLOOD 13 mg/dL (7-18)
[2021-08-24] MEDS ORDERED: OXYB15TA19 PO (16:15)
[2021-08-24] MEDS ORDERED: FLUT1DIS5 INH (16:15)
[2021-08-24] MEDS ORDERED: ALPR2TAB7 PO (16:15)
[2021-08-24] MEDS ORDERED: POLY17PO4 PO (16:15)
[2021-08-24] MEDS ORDERED: QUET300T2 PO (16:15)
[2021-08-24] MEDS ORDERED: ALBU18HF2 IH (16:16)
[2021-08-24] MEDS ORDERED: OXYC1TAB12 PO (16:16)
[2021-08-24 16:18] LABS: ALANINE AMINOTRANSFERASE 32 U/L (12-78); ALBUMIN 2.9 g/dL (3.4-5.0); ALKALINE PHOSPHATASE 100 U/L (46-116); ASPARTATE AMINOTRANSFERASE 22 U/L (15-37); BILIRUBIN,DIRECT 0.1 mg/dL (0.0-0.2); BILIRUBIN,TOTAL 0.2 mg/dL (0.2-1.0); TOTAL PROTEIN, SERUM 5.6 g/dL (6.4-8.2)
[2021-08-24] MEDS ORDERED: ONDANSETRON HCL/PF 4 MG/2 ML VIAL ONE (16:22)
[2021-08-24] MEDS ORDERED: LIDOCAINE 1%-EPI 1:100,000 50 ML VIAL IJ ONE (16:30)
[2021-08-24] MEDS ORDERED: ONDANSETRON HCL/PF - ER 4 MG/2 ML VIAL IV ONE (16:30)
[2021-08-24] MEDS ORDERED: LIDOCAINE 1%-EPI 1:100,000 20 ML VIAL ONE (16:39)
--- NOTE | 2021-08-24 16:49 | NUR ---
TIFFANIE CHRISTINA MADE AWARE OF REPEAT BLOOD GLUCOSE.
[2021-08-24] MEDS ORDERED: ACETAMINOPHEN 325 MG TABLET PO PRN (18:00)
[2021-08-24] MEDS ORDERED: HYDROCODONE/APAP 10/325MG TABLET PO PRN (18:00)
[2021-08-24] MEDS ORDERED: MAG HYDROX/AL HYDROX/SIMETH 30 ML UDC PO PRN (18:00)
[2021-08-24] MEDS ORDERED: HYDROCODONE/APAP 5/325MG TABLET PO PRN (18:00)
[2021-08-24] MEDS ORDERED: TEMAZEPAM 15 MG CAPSULE PO PRN (18:00)
[2021-08-24] MEDS ORDERED: Z GUARD REMEDY 2 OZ OINT TP PRN (18:00)
[2021-08-24] MEDS: BLOOD SUGAR DIAGNOSTIC 1 EACH STRIP IN SCH (18:00)
[2021-08-24] MEDS ORDERED: MAGNESIUM HYDROXIDE 30 ML UDC PO PRN (18:00)
[2021-08-24] MEDS ORDERED: HOME MED MISCELLANEOUS XX SCH (18:30)
[2021-08-24] MEDS ORDERED: TEMAZEPAM 7.5 MG CAPSULE PO PRN (18:30)
[2021-08-24] MEDS ORDERED: ALBUTEROL SULFATE INH 18 GM HFA.AER.AD IH PRN (18:30)
--- NOTE | 2021-08-24 18:32 | NUR ---
GOT BED 310-2
[2021-08-24] MEDS ORDERED: ALBUTEROL FS 2.5 MG/0.5 ML VIAL.NEB NEB PRN (19:30)
[2021-08-24] MEDS ORDERED: IPRATROPIUM NEB FS 0.5 MG/2.5 ML AMPUL.NEB NEB PRN (19:30)
--- NOTE | 2021-08-24 20:00 | NUR ---
REPORT GIVEN TO RN
--- NOTE | 2021-08-24 20:02 | NUR ---
TRANSFERRING PT TO ROOM 310-2
[2021-08-24 20:05] VITALS: BP 115/74
--- NOTE | 2021-08-24 20:25 | NUR ---
RN ADMITTING NOTE PATIENT TRANSFERRED TO TELE 324-1 VIA GURNEY. PATIENT IS A/O X 4, ABLE TO MAKE NEEDS KNOWN. PATIENT COMPLAINS OF SEVERE PAIN ON THE HEAD. PATIENT TOLERATES ROOM AIR, BREATHING EVEN AND UNLABORED. PATIENT HAS A R FOREHEAD LACERATION, CLOSED WITH DIVYA. NO BLEEDING. PATIENT ALSO CAME WITH HER RIGHT HAND BANDAGED, SKIN TEAR PRESENT AND MILD BLEEDING. OTHER SKIN CONDITIONS DOCUMENTED AND PHOTOS TAKEN. HOME MEDS DOCUMENTED. PATIENT HAS A L IJ 20 G, PATENT AND INTACT. R CW PICC LINE PRESENT WELL FOR FREQUENT REHYDRATION AT CLINIC NEAR [facility]. LCW PACEMAKER NOTED. TELE MONITOR READS 70 SR WITH A PACING. DILAUDID PILL BOTTLE OBTAINED FROM PATIENT, WILL BE GIVING TO PHARMACY IN AM. ORIENTED PATIENT TO , RN, LAY OUT WORKER. SAFETY MEASURES IN PLACE: BED LOCKED AND IN LOWEST POSITION, CALL LIGHT WITHIN REACH, SIDE RAILS UP, ENCOURAGED PATIENT TO CALL IF NEEDED, BED ALARM ON. WILL MONITOR PATIENT CLOSELY.
[2021-08-24] MEDS: IV D5/ 0.9% NACL 1,000 ML IV PRN (21:00)
[2021-08-24] MEDS: oxyCODONE/APAP (5/325 MG) 1 UDTAB TABLET PO PRN (21:24)
--- NOTE | 2021-08-24 21:25 | NUR ---
RN NOTE PATIENT GIVEN PERCOCET FOR 10/10 PAIN OF HEAD AND NECK. WILL REASSESS EFFECTIVENESS.
[2021-08-24] MEDS ORDERED: HYDR4TAB4 PO (21:38)
[2021-08-24] MEDS: QUETIAPINE FUMARATE 100 MG TABLET PO SCH (22:13)
[2021-08-24] MEDS: ARIPIPRAZOLE 5 MG TABLET PO SCH (22:13)
[2021-08-24 23:50] VITALS: BP 90/59
--- NOTE | 2021-08-24 23:58 | NUR ---
P Addendum: 08/24/21 at 2359 by FILIBERTO SANDRA RN PATIENT BS 93 MG/DL. NO COVERAGE GIVEN. GAVE PATIENT APPLE JUICE, WILL MONITOR PATIENT FOR S/S OF HYPOGLYCEMIA.
--- NOTE | 2021-08-25 | NUR ---
RN NOTE LAB CALLED, CORTISOL 6.5, AWARE.
[2021-08-25] MEDS: BLOOD SUGAR DIAGNOSTIC 1 EACH STRIP IN SCH ×4 (00:16→17:21)
[2021-08-25] MEDS: oxyCODONE/APAP (5/325 MG) 1 UDTAB TABLET PO PRN ×5 (01:30→19:20)
--- NOTE | 2021-08-25 01:30 | NUR ---
RN NOTE PATIENT GIVEN PERCOCET FOR 10/10 PAIN OF HEAD AND NECK. WILL REASSESS EFFECTIVENESS.
[2021-08-25 04:51] VITALS: BP 98/65
--- NOTE | 2021-08-25 05:43 | NUR ---
RN NOTE PERCOCET GIVEN FOR 10/10 PAIN. BS 76 MG/DL. GAVE SNACKS AND JUICE TO PATIENT. WILL MONITOR FOR HYPOGLYCEMIA.
[2021-08-25] MEDS: IV D5/ 0.9% NACL 1,000 ML IV PRN ×2 (06:30→17:25)
--- NOTE | 2021-08-25 06:42 | NUR ---
RN CLOSING NOTE PATIENT IN BED, SLEEPING, EASILY AROUSED. PATIENT TOLERATING ROOM AIR, BREATHING EVEN AND UNLABORED. PATIENT'S TELE MONITOR READS 62 BPM SR WITH A PACING. PATIENT'S PAIN MANAGED WITH PERCOCET. WOUND CARE RENDERED ON SKIN ISSUES. LEFT IJ 20 G STILL RUNNING D5NS @ 75ML/HR. PATIENT'S PICC LINE WHICH SHE WAS ADMITTED WITH STILL COVERED IN DRESSING. NO SIGNIFICANT CHANGES IN PATIENT'S CONDITION. WANTS FLU VACCINE UPON DISCHARGE. SAFETY MEASURES IMPLEMENTED. ALL NEEDS MET AND ATTENDED. ALL ORDERS CARRIED OUT. WILL ENDORSE TO DAY SHIFT NURSE FOR ABDOUL.
[2021-08-25 06:47] LABS: CALCIUM, SERUM 8.1 mg/dL (8.5-10.1); CREATININE 0.6 mg/dL (0.6-1.3); MAGNESIUM 1.9 mg/dL (1.8-2.4); PHOSPHORUS 2.7 mg/dL (2.5-4.9); POTASSIUM 3.9 mmol/L (3.5-5.1)
[2021-08-25 06:54] LABS: BASOPHILS % (AUTO) 0.7 % (0.0-2.0); EOSINOPHILS % (AUTO) 11.9 % (0.0-6.0); HEMATOCRIT 33 % (33-45); LYMPHOCYTES % (AUTO) 20.6 % (20.0-44.0); MEAN CORPUSCULAR HGB CONC 34 g/dl (31.0-36.0); MEAN CORPUSCULAR VOLUME 90 fL (82-100); MONOCYTES # (AUTO) 0.3 K/uL (0.1-1.30); MONOCYTES % (AUTO) 6.5 % (2.0-12.0); NEUTROPHILS # (AUTO) 2.8 K/uL (1.8-8.9); NEUTROPHILS % (AUTO) 60.3 % (43.0-81.0); PLATELET COUNT (AUTO) 216 K/uL (150-450); WHITE BLOOD COUNT (AUTO) 4.6 K/uL (4.3-11.0)
[2021-08-25 07:06] LABS: THYROID STIMULATING HORMONE 2.527 uIU/mL (0.358-3.74)
--- NOTE | 2021-08-25 07:38 | NUR ---
TELE/RN OPENING NOTES RECEIVED PATIENT AWAKE ALERT AND ORIENTED X4. PATIENT IS ON ROOM AIR. PATIENT IN NO APPARENT RESPIRATORY DISTRESS NOTED. NO COMPLAINED OF PAIN NOTED AT THIS TIME. TELE MONITOR READING SINUS RHYTHM 67 BPM. WILL CONTINUE TO MONITOR.
[2021-08-25 07:40] LABS: IRON, SERUM 36 ug/dl (50-175); TOTAL IRON BINDING CAPACITY 173 ug/dl (250-450)
[2021-08-25 08:00] VITALS: BP 140/75
[2021-08-25] MEDS ORDERED: OXYBUTYNIN CHLORIDE PO SCH (09:00)
[2021-08-25] MEDS ORDERED: [UNRECOGNIZED DRUG - OTHER] PO SCH (09:00)
[2021-08-25] MEDS: OXYBUTYNIN CHLORIDE ER 5 MG TAB PO SCH (09:06)
[2021-08-25] MEDS: POLYETHYLENE GLYCOL 3350 17 GM POWD.PACK PO SCH (09:06)
[2021-08-25] MEDS: LIPASE/PROTEASE/AMYLASE 1 EACH CAPSULE.DR PO SCH ×3 (09:07→17:23)
[2021-08-25] MEDS: DOCUSATE SODIUM 100 MG CAPSULE PO SCH ×2 (09:07→17:20)
[2021-08-25] MEDS: FLUTICASONE/VILANTEROL 1 EACH BLST.W.DEV IH SCH (09:10)
[2021-08-25] MEDS: PANTOPRAZOLE 40 MG TABLET.DR PO SCH (09:11)
[2021-08-25] MEDS: HYDROCORTISONE 5 MG TABLET PO SCH ×3 (10:23→17:20)
[2021-08-25 12:00] VITALS: BP 126/69
[2021-08-25 12:41] LABS: FERRITIN 88 ng/mL (8-388)
[2021-08-25] MEDS ORDERED: HYDROCORTISONE 10 MG TABLET PO SCH (13:00)
[2021-08-25] MEDS: ONDANSETRON HCL/PF 4 MG/2 ML VIAL IVP PRN (14:30)
[2021-08-25 16:00] VITALS: BP 111/74
--- NOTE | 2021-08-25 16:40 | NUR ---
SS Consult: SS Consult requested for home safety. Pt. is a 60-year-old female patient who presents to the [facility] due to a fall on the street causing head laceration, per EMR. Per the EMR, the pt. does not remember what happened and thinks her blood sugar was low. Per EMR, Pt. states this is the third time she had a syncopal event due to low blood sugar in the last 5 months. SW met with pt. bedside. Pt was A&O X 4. Pt. appears anxious and having tremors. Pt. was cooperative and provided appropriate eye contact. Pt. presented with a normal thought process. Per the pt., she fell on the street while looking for apartments. Pt. stated her son takes care of her and when he leaves the [facility] caregiver arrives, Michelle [phone]. Pt. stated she is independent with her ADLs and can walk independently. Pt. stated she has a psychiatric diagnosis of Bipolar and Schizoaffective disorder and takes Ativan for panic attacks and anxiety. SW explored pt.s drug use. Pt. reports a past history of drug abuse but hasn't used drugs in two years. Pt. states she receives food stamps and social security benefits. HAMILTON asked pt. if she needed any additional resources at home and pt. requested hot meals delivered to her home. SW provided resources for meals on wheels, DME, caregiver resources etc. and pt. accepted them. Plan: Upon discharge, pt. Will return to [address] [place] [address] [address] [place], [address] and receive care from her son and [facility] caregiver. HAMILTON will notify regarding possible DME for shower upon DC. ABUSE PREVENTION: ELDER ABUSE HOTLINE (29/05) ADULT PROTECTIVE SERVICES HOTLINE LONG-TERM CARE [facility] Region AREA ON AGING (HOTLINE) ADULT DAY HEALTH CARE CARE CENTERS: Private pay or Medi-eros funded adult day care [facility] , [facility] , [facility] Adult Care Center , [facility] , [facility] Adult Day [facility] , [facility] Adult Daycare Center , [place] [facility] Generation Center , Gopi Patel [facility] Center , [place] ALZHEIMERS DISEASE/DEMENTIA: Alzheimers Association Helpline [facility] Chapter www.alz.org/[facility] Department of Aging www.lacity.org Family Caregiver Regan www.caregiver.org [place] Caregiver Resources Center/Family Support www.[facility] center[facility].org CANCER RESOURCES: [place] Cancer Society www.cancer.org Cancer Support Community www.CancerSupportVvsb.org: CancerCare www.cancercare.org [facility] Cancer Support [place] www.sagewest healthcare - riverton - riverton.org [facility] HEALTH ASSOCIATIONS: AARP www.aarp.org ALS Association (ask for Jocelyn) www.als.org Polish Diabetes Association www.diabetes.org Polish Heart Association www.heart.org Polish Lung Association www.lungusa.org Polish Parkinson Disease Association www.apdaparkinson.org Polish Warrior , www.redcross.org Arthritis Foundation www.arthritis.org Crohns & Colitis Foundation of Polish www.ccfa.org/chapters/jim National Multiple Sclerosis Society www.nationalmssociety.org Myasthenia Gravis Foundation www.myasthenia-ca.org National Stroke Association www.stroke.org CONSERVATORSHIP & GUARDIANSHIP: AARP Allyssa Sterling Legal Services Center for Health Care Rights Eldercare Information and Referral Operations Support Analyst Foundation [facility]: [facility] Bar Referral Service [facility] Legal Services Office of the Public Guardian [place] EYESIGHT DISORDER RESOURCES: Polish Macular Degeneration Foundation [facility] www.[facility].org GRIEF AND BEREAVEMENT RESOURCES: [facility] , [facility] THE [facility] , [facility] Bereavement Center , [place] HEARING DISORDER RESOURCES: [place] Telephone Access Program Deaf and Disabled Telecommunications Program www.ddtp.cpu.ca.gov HearRx Hearing Centers ([place]) Better Hearing Systems , [place] GLAD ([facility] Agency on Deafness) V/ TTY; Buyer Intern , [facility] Hearing [facility], [place] -low income hearing aid assistance www.vChatterhearingfoundation.org [place] [facility] , [place] HELP AT HOME CAREGIVER SUPPORT: In Home Support Services (Must have Medi-Eros to be eligible) *Ask for a list of agencies that provide services to assist with care in the home. Local Senior Centers also have listings of care providers. HOME SAFETY MODIFICATIONS AND EQUIPMENT: Senior centers have additional referrals. [place] Housing and Community Investment Dept. Handyworker Program (low income) or Visit http://hcidla.lacity.org/qiv-hplzth-wx for more information National Seating and Mobility and/or ; Forever Active www.foreveractivemed.Airstone Stay Home Safe www.Xinrong.Airstone LIFE ALERT RESPONSE SYSTEM: boo-box Services 499-168-2525 www. Arganteal Life Alert 827-355-0578 www.Advanced Seismic Technologies Life Station 893-913-4108 www.Urgent.lyation.Airstone Safe Return 171-669-7624 www.alz.or/safereturn Cell Phones for Seniors www.Inflection MEALS AND FOOD PROGRAMS: Hunters Meals on Wheels [phone] [place] Meals on Wheels [phone] [facility] [phone] [place] to the Homebound [phone] [place] to the Homebound [phone] [facility] to the Homebound [phone] Formerly Group Health Cooperative [facility] to the Homebound [phone] [facility] [phone] [facility] [phone] ONE Generation [phone] [facility] [phone] [facility] [phone] Meals on Wheels [phone] For all ages: $6.85/ meal w side. Delivered M-F from 10 am-1pm. Application and payment is done over the phone. Frozen meals available for weekends. Emergency Food [facility] [phone] [facility] Manager Of Product [phone] [facility] [phone] LbKettering [facility]- Brown bag lunches [phone] LYLY [facility] [phone] MEAL/GROCERY DELIVERY PROGRAMS: [facility] [phone]- [facility] [phone]- [facility] Heartic Kitchen [phone] Moms Meals [phone] (ask Kovacs for Discount Select grocery stores may provide delivery. MEDICAL INSURANCE SUPPORT SERVICES: Center for Health Care Rights [phone] Health Insurance Counseling/Advocacy Programs (HICAP)-Must have Medicare. Offers counseling for Medi-Eros eligibility [phone] Department of Public Manager Of Product [phone] www.[facility].ca.gov Medicare [phone] www.socialsecurity.org Social Security [phone] SENIOR ACTIVITY PROGRAMS: *Contact a local senior center, adult school, recreation facility or community college for education, fitness, recreation, and social programs. Aquatic Therapy and Adapted Exercise programs through [facility] [phone] Encore at [place] [facility] [phone] www.[facility]/encore U- Senior Friends [phone] Sarben Senior Programs [phone] www.oasisnet.org Suddenly 65 www.xycceecq62.com SENIOR CENTERS: [facility] [phone] [facility] [phone] [facility] [phone] [facility] [phone] [facility] [phone] [facility] [phone] [facility] [phone] [facility] [phone] One Generation, [facility] [phone] [facility] [phone] [facility] [phone] [facility] [phone] [facility] [place] [phone] TRANSPORTATION: Local [facility] Centers may have applications for transportation programs and additional resources. ACCESS Services [phone] Transportation for seniors and disabled persons 7 days a week requiring 254 hr. advance reservation. Must apply and register for program zander eligible. CITY RIDE [phone] or [phone] Transportation for seniors and persons with ADA card/metro disabled card in the [facility]. M-F only. Must register for services. ONE GENERATION [phone] Serves 65 years + in conjunction with MakersKit ride program. Must be registered with both programs. A to B Transport [phone] Provides wheelchair/gurney van service. Adult Medical Transport [phone] Accepts [facility] with prior authorization. Care Van [phone] Provides wheelchair Transport. [facility] Wide Transportation [phone] Provides gurney service Gentle Care [phone] Gurney Transport. [facility] Town Transportation [phone] wheelchair & gurney transport [facility] Transportation [phone] wheelchair & gurney transport [place] Non-Emergency Transport [phone] wheelchair & gurney transport Independent [facility] Center [phone] Short Term Transportation primarily for adults with disabilities on social security income. Nominal fee may apply and a reservation is required. [employer] [phone] or [phone] [facility] [phone] [place] [address] Referral Services -[phone] For additional programs & services VETERANS RESOURCES: Submissions for Aid and Attendance should be done directly to Federal VA office locatd at : [address] [facility] [phone] National Caregiver Support Line [phone] Eros [facility] Field Office [phone] [place] Department of [place] Affairs [phone] Pension Information [phone]
[2021-08-25] MEDS: ENSURE ENLIVE CHOC 237 ML CAN PO SCH (17:21)
--- NOTE | 2021-08-25 19:22 | NUR ---
TELE/RN CLOSING NOTES PATIENT IS ON BED AWAKE ALERT AND ORIENTED X4. PATIENT IS ON ROOM AIR. PATIENT IN NO APPARENT RESPIRATORY DISTRESS NOTED. NO COMPLAINED OF PAIN NOTED AT THIS TIME. SEEN AND EXAMINED BY MD WITH ORDERS MADE AND CARRIED OUT. ALL DUE MEDICATIONS WAS GIVEN. TELE MONITOR READING SINUS RHYTHM 67BPM WITH PAC. IV ACCESS AT LEFT INTRAJUGULAR #20G WITH IV FLUID OF D5NS 1L AT 75ML/HOUR ON AND INFUSING WELL. SAFETY PRECAUTIONS WAS IN PLACED. BED IN LOWEST POSITION AND LOCKED. SIDERAILS UP X2. CALL LIGHT WITHIN REACH. WILL ENDORSED TO BIOCHEMISTRY TEACHER FOR ABDOUL.
[2021-08-25 20:00] VITALS: BP 131/85
[2021-08-25] MEDS: QUETIAPINE FUMARATE 100 MG TABLET PO SCH (22:05)
[2021-08-25] MEDS: ARIPIPRAZOLE 5 MG TABLET PO SCH (22:05)
[2021-08-26] VITALS: BP 118/65
[2021-08-26] MEDS: BLOOD SUGAR DIAGNOSTIC 1 EACH STRIP IN SCH ×4 (00:10→17:23)
[2021-08-26] MEDS: oxyCODONE/APAP (5/325 MG) 1 UDTAB TABLET PO PRN ×5 (01:32→20:45)
[2021-08-26 04:00] VITALS: BP 115/79
[2021-08-26] MEDS: ONDANSETRON HCL/PF 4 MG/2 ML VIAL IVP PRN ×2 (05:08→12:11)
--- NOTE | 2021-08-26 06:39 | NUR ---
AIRCRAFT ACCESSORIES MECHANIC NOTES AWAKE & RESPONSIVE. NOT IN ANY DISTRESS. NO SOB NOTED. DENIES ANY PAIN OR DISCOMFORT AT THIS TIME. ON TELE SR @ 83 WITH IVF INFUSING WELL. AM CARE DONE. MONITORED ACCORDINGLY. CALL LIGHT WITHIN REACH. BED IN LOWEST POSITION. SR UP X 2 FOR SAFETY. WILL ENDORSE TO NEXT SHIFT.
[2021-08-26 06:49] LABS: BASOPHILS % (AUTO) 0.4 % (0.0-2.0); EOSINOPHILS % (AUTO) 5.4 % (0.0-6.0); HEMATOCRIT 37 % (33-45); LYMPHOCYTES # (AUTO) 1.3 K/uL (0.8-4.8); LYMPHOCYTES % (AUTO) 24.2 % (20.0-44.0); MEAN CORPUSCULAR HGB CONC 32 g/dl (31.0-36.0); MEAN CORPUSCULAR VOLUME 92 fL (82-100); MONOCYTES # (AUTO) 0.3 K/uL (0.1-1.30); MONOCYTES % (AUTO) 5.8 % (2.0-12.0); NEUTROPHILS # (AUTO) 3.5 K/uL (1.8-8.9); NEUTROPHILS % (AUTO) 64.2 % (43.0-81.0); PLATELET COUNT (AUTO) 223 K/uL (150-450); RED BLOOD CELL COUNT(AUTO) 4.05 MIL/uL (4.0-5.2); WHITE BLOOD COUNT (AUTO) 5.4 K/uL (4.3-11.0)
--- NOTE | 2021-08-26 07:35 | NUR ---
RN NOTES PATIENT AWAKE, A/O X4. NO SIGNS OF ACUTE DISTRESS. ON ROOM AIR, NO SOB NOTED. NO C/O PAIN OR DISCOMFORT. ON TELE SR @90. IV D5NS @75CC/HR ONGOING. WILL CONTINUE TO MONITOR.
[2021-08-26 07:45] LABS: CALCIUM, SERUM 8.2 mg/dL (8.5-10.1); CREATININE 0.7 mg/dL (0.6-1.3); POTASSIUM 3.6 mmol/L (3.5-5.1)
[2021-08-26 08:00] VITALS: BP 114/68
[2021-08-26] MEDS: DOCUSATE SODIUM 100 MG CAPSULE PO SCH ×2 (08:21→16:19)
[2021-08-26] MEDS: LIPASE/PROTEASE/AMYLASE 1 EACH CAPSULE.DR PO SCH ×3 (08:22→17:13)
[2021-08-26] MEDS: HYDROCORTISONE 5 MG TABLET PO SCH ×3 (08:23→17:02)
[2021-08-26] MEDS: POLYETHYLENE GLYCOL 3350 17 GM POWD.PACK PO SCH (08:23)
[2021-08-26] MEDS: PANTOPRAZOLE 40 MG TABLET.DR PO SCH (08:25)
[2021-08-26] MEDS: OXYBUTYNIN CHLORIDE ER 5 MG TAB PO SCH (08:33)
[2021-08-26] MEDS: ENSURE ENLIVE CHOC 237 ML CAN PO SCH ×3 (08:37→17:02)
--- NOTE | 2021-08-26 09:35 | NUR ---
RN NOTES TODD, PT, AT BEDSIDE FOR PT EVAL. PATIENT ABLE TO AMBULATE W/ ASSISTANCE.
[2021-08-26] MEDS: FLUTICASONE/VILANTEROL 1 EACH BLST.W.DEV IH SCH (09:54)
--- NOTE | 2021-08-26 12:11 | NUR ---
RN NOTES PATIENT WITH C/O NAUSEA, ZOFRAN 4MG IVP GIVEN PER STANDING ORDER. NO VOMITING NOTED. WILL CONTINUE TO MONITOR.
--- NOTE | 2021-08-26 12:15 | NUR ---
RN NOTES PATIENT SEEN AND EXAMINED BY DR. ZAYAS, PATIENT REQUESTED IF RIGHT CHEST WALL CENTRAL LINE CAN BE USED INSTEAD OF LIJ SL, PER MD OK TO USE CENTRAL LINE AND MAY REMOVED LIJ SL. LEFT IJ SL REMOVED, COVERED WITH GAUZE, NO BLEEDING NOTED. WILL CONTINUE TO MONITOR.
[2021-08-26] MEDS: IV D5/ 0.9% NACL 1,000 ML IV PRN (13:30)
--- NOTE | 2021-08-26 13:45 | NUR ---
RN NOTES PATIENT SEEN BY DR. ZAYAS TODAY FOR ONCO CONSULT W/ ORDERS NOTED.
[2021-08-26 15:07] LABS: *C PEPTIDE 1.3 ng/mL (1.1-4.4); *INSULIN 3.2 uIU/mL (2.6-24.9)
[2021-08-26 16:00] VITALS: BP 112/65
--- NOTE | 2021-08-26 16:48 | NUR ---
RN NOTES PATIENT'S MONEY PLACED IN ADJUSTER AND INSPECTOR'S SAFETY DEPOSIT BOX FOR SAFE-KEEPING #[id number]
--- NOTE | 2021-08-26 18:32 | NUR ---
RN NOTES PATIENT IN BED RESTING, AWAKE AND A/O X4, NO SIGNS OF ACUTE DISTRESS NOTED. NO C/O PAIN AT THIS TIME. ON ROOM AIR, NO C/O SOB, SPO2 @96%. WITH CENTRAL LINE ON RIGHT CHEST WALL, PATENT AND INTACT WITH IVF OF D5NS @75ML/HR, TOLERATING WELL. ALL DUE MED GIVEN, TOLERATED WELL, WITH NO ASE. BLOOD GLUCOSE 136MG/DL @ 1800, NO S/SX OF HYPOGLYCEMIA NOTED. PATIENT AMBULATORY WITH BRP, ASSISTED TO BR NEEDED. CALL LIGHT PLACED WITHIN EASY REACH, BED ON ITS LOWEST POSITION, WITH BREAKS ON, HERMILO SR UP. ALL NEEDS ATTENDED TO, CONTINUE WITH POC.
[2021-08-26 20:10] VITALS: BP 133/72
[2021-08-26] MEDS: ARIPIPRAZOLE 5 MG TABLET PO SCH (21:21)
[2021-08-26] MEDS: QUETIAPINE FUMARATE 100 MG TABLET PO SCH (21:21)
[2021-08-27] MEDS: BLOOD SUGAR DIAGNOSTIC 1 EACH STRIP IN SCH ×3 (00:13→12:39)
[2021-08-27] MEDS: oxyCODONE/APAP (5/325 MG) 1 UDTAB TABLET PO PRN ×2 (05:23→10:22)
[2021-08-27] MEDS: IV D5/ 0.9% NACL 1,000 ML IV PRN (05:33)
--- NOTE | 2021-08-27 06:38 | NUR ---
MS RN NOTES AWAKE & RESPONSIVE. NOT IN ANY DISTRESS. NO SOB NOTED. DENIES ANY PAIN OR DISCOMFORT AT THIS TIME. WITH IVF INFUSING WELL. AM CARE DONE. MONITORED ACCORDINGLY. CALL LIGHT WITHIN REACH. BED IN LOWEST POSITION. SR UP X 2 FOR SAFETY. WILL ENDORSE TO NEXT SHIFT.
[2021-08-27 07:22] LABS: ALBUMIN 2.4 g/dL (3.4-5.0); BILIRUBIN,TOTAL 0.1 mg/dL (0.2-1.0); CREATININE 0.7 mg/dL (0.6-1.3); POTASSIUM 3.7 mmol/L (3.5-5.1); TOTAL PROTEIN, SERUM 5.3 g/dL (6.4-8.2)
[2021-08-27 07:34] LABS: BASOPHILS % (AUTO) 0.4 % (0.0-2.0); EOSINOPHILS % (AUTO) 4.2 % (0.0-6.0); HEMATOCRIT 32 % (33-45); HEMOGLOBIN 10.6 g/dL (11.5-14.8); LYMPHOCYTES # (AUTO) 1.3 K/uL (0.8-4.8); LYMPHOCYTES % (AUTO) 27.8 % (20.0-44.0); MEAN CORPUSCULAR HGB CONC 33 g/dl (31.0-36.0); MEAN CORPUSCULAR VOLUME 91 fL (82-100); MONOCYTES # (AUTO) 0.4 K/uL (0.1-1.30); MONOCYTES % (AUTO) 8.7 % (2.0-12.0); NEUTROPHILS # (AUTO) 2.8 K/uL (1.8-8.9); NEUTROPHILS % (AUTO) 58.9 % (43.0-81.0); PLATELET COUNT (AUTO) 195 K/uL (150-450); WHITE BLOOD COUNT (AUTO) 4.8 K/uL (4.3-11.0)
--- NOTE | 2021-08-27 07:44 | NUR ---
RN OPENING NOTE PT AWAKE IN BED RESTING. ON RA WITH NO SOB OR RESPIRATORY DISTRESS PRESENT. A/O X4 AND TAMAZIGHT SPEAKING. NO LOCKER ROOM MANAGER PRESENT. NO COMPLAINT OR PAIN OR NAUSEA. NO EDEMA PRESENT. SELF AMBULATORY WITH BATHROOM PRIVILEGES. SKIN ISSUES PRESENT, PICTURES IN CHART. CENTRAL LINE PRESENT ON R CW. D5NS RUNNING AT 75 ML/HR. LABS AND ORDERS REVIEWED. SAFETY MEASURES IN PLACE. SIDE RAILS RAISED. BED LOWERED. CALL LIGHT WITHIN REACH. WILL CONTINUE TO MONITOR.
[2021-08-27 08:00] VITALS: BP 123/72
[2021-08-27] MEDS: LIPASE/PROTEASE/AMYLASE 1 EACH CAPSULE.DR PO SCH ×2 (08:10→12:39)
[2021-08-27] MEDS: FLUTICASONE/VILANTEROL 1 EACH BLST.W.DEV IH SCH (08:10)
[2021-08-27] MEDS: ENSURE ENLIVE CHOC 237 ML CAN PO SCH ×2 (08:10→12:39)
[2021-08-27] MEDS: PANTOPRAZOLE 40 MG TABLET.DR PO SCH (08:10)
[2021-08-27] MEDS: HYDROCORTISONE 5 MG TABLET PO SCH ×2 (08:10→12:39)
[2021-08-27] MEDS: OXYBUTYNIN CHLORIDE ER 5 MG TAB PO SCH (08:10)
[2021-08-27] MEDS: DOCUSATE SODIUM 100 MG CAPSULE PO SCH (08:10)
[2021-08-27] MEDS: POLYETHYLENE GLYCOL 3350 17 GM POWD.PACK PO SCH (08:11)
[2021-08-27] MEDS: ONDANSETRON HCL/PF 4 MG/2 ML VIAL IVP PRN (09:07)
[2021-08-27] MEDS ORDERED: LACT-54 PO (12:38)
[2021-08-27] MEDS ORDERED: INFLUENZA VACCINE 2021-22 0.5 ML DISP.SYRIN IM ONE (13:30)
--- NOTE | 2021-08-27 14:00 | NUR ---
RN NOTE WOUND PICTURES UNABLE TO BE TAKEN PRIOR TO D/C. WOUNDS PRESENT. EQUIPMENT MALFUNCTIONING. CN AWARE. WILL CONTINUE TO MONITOR.
--- NOTE | 2021-08-27 14:19 | NUR ---
ADOLESCENT COUNSELOR NOTE PT DISCHARGED HOME VIA BUS. TAP CARD GIVEN BY NURSING OFFICE. EXITCARE EDUCATION UTILIZED AND GIVEN TO PT. PRESCRIPTIONS CHECKED AND GIVEN TO PT. BELONGINGS CHECKED AND GIVEN TO PT. ID BAND REMOVED. R CW CENTRAL LINE TO STAY WITH PT. IN STABLE CONDITION. PT TRANSPORTED VIA WHEELCHAIR ACCOMPANIED BY MEDICAL STAFF.
[2021-08-28 07:07] LABS: IMMUNOGLOBULIN A, SERUM 265 mg/dL (87-352); IMMUNOGLOBULIN G, SERUM 714 mg/dL (586-1602); IMMUNOGLOBULIN M, SERUM 80 mg/dL (26-217)
[2021-08-28 08:06] LABS: CARBOHYDRATE AG 19-9 35 U/mL (0-35)
[2021-08-30 06:06] LABS: *SPE A/G RATIO 1.2 (0.7-1.7); *SPE ALPHA-1-GLOBULIN 0.2 g/dL (0.0-0.4); *SPE ALPHA-2-GLOBULIN 0.6 g/dL (0.4-1.0); *SPE BETA GLOBULIN 0.8 g/dL (0.7-1.3); *SPE M-SPIKE Not Observed g/dL (Not Observed)
== END 2021-08-27 14:20 | disposition home health service (06) | DRG 987 ==
LOC: ER 13:16 → TELE 18:38 → MED 08-26 08:48
PROVIDERS: ADMIT Nurse Practitioner Acute Care; ATTEND Nurse Practitioner Acute Care
PROC: 0JQ10ZZ Repair Face Subcutaneous Tissue and Fascia, Open Approach (ICD-10-PCS; principal; 2021-08-24)
DX: E11.649 Type 2 diabetes mellitus with hypoglycemia without coma (principal); E43 Unspecified severe protein-calorie malnutrition; K86.1 Other chronic pancreatitis; E27.40 Unspecified adrenocortical insufficiency; Z68.1 Body mass index [BMI] 19.9 or less, adult; R64 Cachexia; X58.XXXA Exposure to other specified factors, initial encounter; Y92.410 Unspecified street and highway as the place of occurrence of the external cause; S01.81XA Laceration without foreign body of other part of head, initial encounter; K21.9 Gastro-esophageal reflux disease without esophagitis; I25.10 Atherosclerotic heart disease of native coronary artery without angina pectoris; G89.4 Chronic pain syndrome; Z98.84 Bariatric surgery status; Z79.891 Long term (current) use of opiate analgesic; Z87.891 Personal history of nicotine dependence; Z90.49 Acquired absence of other specified parts of digestive tract; Z96.659 Presence of unspecified artificial knee joint; Z90.710 Acquired absence of both cervix and uterus; Z85.07 Personal history of malignant neoplasm of pancreas; Z92.21 Personal history of antineoplastic chemotherapy; Z88.5 Allergy status to narcotic agent; Z88.8 Allergy status to other drugs, medicaments and biological substances; Z91.041 Radiographic dye allergy status; Z79.51 Long term (current) use of inhaled steroids; Z79.899 Other long term (current) drug therapy; R62.7 Adult failure to thrive; I49.5 Sick sinus syndrome; E78.5 Hyperlipidemia, unspecified; F20.9 Schizophrenia, unspecified; F41.9 Anxiety disorder, unspecified; M50.30 Other cervical disc degeneration, unspecified cervical region; I10 Essential (primary) hypertension; M43.12 Spondylolisthesis, cervical region; D50.9 Iron deficiency anemia, unspecified; F31.9 Bipolar disorder, unspecified; Z82.49 Family history of ischemic heart disease and other diseases of the circulatory system; Z83.3 Family history of diabetes mellitus; Z95.0 Presence of cardiac pacemaker; W19.XXXA Unspecified fall, initial encounter; Z96.652 Presence of left artificial knee joint; Z98.890 Other specified postprocedural states
CPT/HCPCS: 36415; 70450-TC; 70486-TC; 71045-TC; 71250-TC; 72125-TC; 80048-TC; 80053-TC; 80061-TC; 80076-TC; 82378; 82533; 82728-TC; 82784; 82962-TC; 83540-TC; 83735-TC; 84100-TC; 84155; 84165; 84439-TC; 84443-TC; 84484-TC; 85025-TC; 85730-TC; 86301; 86334; 87081-TC; 92526; 92611-TC; 93307-TC; 97116-TC; 97530-TC; A6403; C9803; G0378; G0480; J2405; J3490; J7042